=== PATIENT | male | born 1955 | race Caucasian/White ===

== ENCOUNTER 2020-10-12 | Outpatient (REF) | payer MEDICARE, MEDICAID, SELFPAY | END 2020-10-12 00:01 | disposition home or self-care (01) | LOC: HO.VC | PROVIDERS: Visit Provider Internal Medicine | DX: Z23 Encounter for immunization (principal) | CPT/HCPCS: 0011A ==

== ENCOUNTER 2020-11-09 | Outpatient (REF) | payer MEDICARE, SELFPAY | END 2020-11-09 00:01 | disposition home or self-care (01) | LOC: HO.VC | PROVIDERS: Visit Provider Internal Medicine | DX: Z23 Encounter for immunization (principal) | CPT/HCPCS: 0012A ==

== ENCOUNTER → 2020-11-28 09:51 | Outpatient (BNVA) | payer MEDICARE, SELFPAY | PROVIDERS: PCP Internal Medicine; Visit Provider Internal Medicine | DX: J44.9 Chronic obstructive pulmonary disease, unspecified (principal); Z79.51 Long term (current) use of inhaled steroids | CPT/HCPCS: 99212 ==

== ENCOUNTER → 2021-05-31 10:20 | Outpatient (BNVA) | payer MEDICARE, SELFPAY | PROVIDERS: PCP Internal Medicine; Visit Provider Internal Medicine | DX: J44.9 Chronic obstructive pulmonary disease, unspecified (principal) | CPT/HCPCS: 99212 ==

== ENCOUNTER → 2021-08-30 09:41 | Outpatient (BNVA) | payer MEDICARE, OTHER, SELFPAY | PROVIDERS: PCP Internal Medicine; Visit Provider Internal Medicine | DX: J44.9 Chronic obstructive pulmonary disease, unspecified (principal) | CPT/HCPCS: 99212 ==

== ENCOUNTER → 2022-02-27 09:45 | Outpatient (BNVA) | payer MEDICARE, OTHER, SELFPAY | PROVIDERS: PCP Internal Medicine; Visit Provider Internal Medicine | DX: J44.9 Chronic obstructive pulmonary disease, unspecified (principal); Z79.899 Other long term (current) drug therapy | CPT/HCPCS: 99212 ==

== ENCOUNTER → 2022-09-27 10:59 | Outpatient (BNVA) | payer MEDICARE, OTHER, SELFPAY | PROVIDERS: PCP Internal Medicine; Visit Provider Internal Medicine | DX: J44.9 Chronic obstructive pulmonary disease, unspecified (principal); Z94.0 Kidney transplant status; Z79.899 Other long term (current) drug therapy | CPT/HCPCS: 99212 ==

== ENCOUNTER 2023-04-02 09:54 | Outpatient (AMB) | payer MEDICARE, SELFPAY ==
--- NOTE | 2023-04-02 09:55 | A.OFFVIS_ITS ---
Intake Vital Signs 04/02/23 09:56 Height 5 ft 10 in Weight 189 lb 9.561 oz BMI 27.2 BP 114/62 Blood Pressure Location Rt brachial Position Sitting Pulse 83 Pulse Source Pulse Oximeter Pulse Oximetry (%) 97 Oxygen Delivery Method Room Air Intake Visit Reasons: copd Intake Note: Pt presents for a routine f/u. He reports everything is going well. Allergies coconut Allergy (Severe, Verified 04/02/23 10:13) SWELLING demeclocycline [Demeclocycline] Allergy (Mild, Verified 04/02/23 10:13) RASH Medication List - Last Reconciled 04/02/23 by Navin Patterson MD albuterol sulfate 90 mcg/actuation 2 puffs PO Q4H PRN atorvastatin 20 mg PO DAILY blood sugar diagnostic As directed doxazosin 4 mg PO DAILY Flovent HFA 110 mcg/actuation (fluticasone propionate) 2 puffs PO BID NS levothyroxine 200 mcg PO metformin 500 mg PO BID nebivolol (Bystolic) 5 mg PO DAILY nifedipine ER 60 mg PO BID pantoprazole 40 mg PO DAILY Serevent Diskus (salmeterol) 1 inh PO BID NS tacrolimus 0.5 mg PO BID tacrolimus 1 mg PO BID tiotropium bromide (Spiriva with HandiHaler) 1 cap inhalation DAILY Do you need a note to return to daycare/school/sports/work: No HPI copd HPI Details This 67 years old very pleasant gentleman, comes for his 6 months. Follow-up for COPD Has remained very stable without any acute exacerbation. He gets short of breath on moderate amount of exertion such as walking fast or climbing stairs, but remains fairly stable and comfortable at his normal pace. Continues to use his inhalers, and uses the rescue inhaler only. once in a His renal status is also staying very stable. [facility] Medical History COPD (chronic obstructive pulmonary disease) Surgical History Kidney replaced by transplant Social History Patient Tobacco Use Status: Never used Tobacco Review of Systems Const All systems reviewed & are unremarkable except as noted in HPI and below Eyes Reports no additional complaints ENT Reports no additional complaints Card Denies chest pain, Denies irregular heart rhythm and Denies leg edema Resp Reports as per HPI GI Reports no additional complaints Reports no additional complaints Musc Reports back pain (Mild) Skin/Breast Reports system reviewed and no additional complaints, except as documented Neuro Reports no additional complaints Psych Reports no additional complaints Physical Exam Vital Signs: Last Vital Signs Pulse 83 04/02/23 09:56 BP 114/62 04/02/23 09:56 Pulse Ox 97 04/02/23 09:56 Oxygen Delivery Method Room Air 04/02/23 09:56 BMI result Body Mass Index 27.2 Const General: comfortable, no acute distress, alert and awake Orientation/consciousness: patient oriented x3 HEENT Head: Yes normal to inspection General nose exam: No nasal polyps present and No nasal discharge present Face and sinus: Yes sinuses nontender Mouth: oropharynx normal Throat: Yes posterior oropharynx normal Eyes General: appearance normal, both eyes and all related structures Neck Neck: Yes normal visual inspection, Yes no lymphadenopathy, Yes trachea midline and Yes no JVD Thyroid: Thyroid normal Chest Chest palpation & inspection: normal inspection of the chest, normal palpation of entire chest wall and no tenderness Resp Other: Percussion note hyper-resonant, breath sounds are distant with prolonged expiratory phase. Lungs are very clear without any crepitations or wheezes. Cardio Palpation: normal PMI Rate: regular rate Rhythm: regular rhythm Heart sounds: no gallops and no murmurs GI Palpation (GI): Soft to palpation, nontender, No hepatosplenomegaly present and no masses Auscultation: normal bowel sounds Back/Spine/Pelvis Thoracic/Lumbar Spine: thoracic and lumbar spine normal to inspection and thoraco-lumbar ROM limited Skin General skin exam: no rashes or lesions noted Neuro General: patient oriented x3 and no focal motor deficits Cranial nerves: Yes CN's II-XII intact bilaterally Extrem General: Yes normal to inspection, Yes no clubbing, cyanosis or edema and Yes no calf tenderness Psych Appearance: grossly normal and well kempt Speech and movement: Normal speech and movement present Assessment & Plan Assessment & Plan (1) COPD (chronic obstructive pulmonary disease): Comment: HE DOES HAVE CHRONIC , and SEVERE OBSTRUCTIVE PULMONARY DISORDER, BUT IT REMAINS VERY STABLE. HE CLAIMS THAT HE IS DOING WELL AND THERE IS NO WORSENING OF HIS BREATHING STATUS. TX CONTINUE FLOVENT -110 2 PUFFS B.I.D. SEREVENT - 50 ONE INH BID SPIRIVA HANDIHALER 1 INHALATION DAILY ALB.HFA 2 puffs q 4-6 Hrs PRN Code(s): J44.9 - Chronic obstructive pulmonary disease, unspecified Coding Level of Care Code Est Pt Level 3 (71538) Diagnoses COPD (chronic obstructive pulmonary disease) J44.9
[2023-04-02 09:56] VITALS: BP 114/62; PULSE 83; O2SAT 97; BMI 27.2
== END 2023-04-02 10:13 | disposition home or self-care (01) ==
PROVIDERS: PCP Internal Medicine; Visit Provider Internal Medicine
DX: J44.9 Chronic obstructive pulmonary disease, unspecified (principal)
CPT/HCPCS: 99213

== ENCOUNTER → 2023-04-02 09:54 | Outpatient (BNVA) | payer MEDICARE, OTHER, SELFPAY | PROVIDERS: Visit Provider Internal Medicine | DX: J44.9 Chronic obstructive pulmonary disease, unspecified (principal); Z94.0 Kidney transplant status | CPT/HCPCS: 99212 ==

== ENCOUNTER 2024-03-24 10:48 | Outpatient (AMB) | payer MEDICARE, SELFPAY ==
[2024-03-24 10:51] VITALS: BP 126/6; PULSE 79; O2SAT 96
--- NOTE | 2024-03-24 10:51 | MHC.OFFVIS ---
Vital Signs 03/24/24 10:51 Weight 199 lb 8.293 oz BP 126/6 L Blood Pressure Location Rt brachial Position Sitting Pulse 79 Pulse Source Pulse Oximeter Pulse Oximetry (%) 96 Oxygen Delivery Method Room Air Intake Visit Reasons: COPD Allergies coconut Allergy (Severe, Verified 03/24/24 11:02) SWELLING demeclocycline [Demeclocycline] Allergy (Mild, Verified 03/24/24 11:02) RASH Medication List - Last Reconciled 03/24/24 by Navin Patterson MD albuterol sulfate 90 mcg/actuation 2 puffs PO Q4H PRN atorvastatin 20 mg PO DAILY beclomethasone dipropionate 40 mcg/actuation (Qvar RediHaler) 2 inhalations inhalation BID 30 days blood sugar diagnostic As directed doxazosin 4 mg PO DAILY Flovent HFA 110 mcg/actuation (fluticasone propionate) 2 puffs PO BID NS levothyroxine 200 mcg PO metformin 500 mg PO BID nebivolol (Bystolic) 5 mg PO DAILY nifedipine ER 60 mg PO BID pantoprazole 40 mg PO DAILY Serevent Diskus (salmeterol) 1 inh PO BID NS tacrolimus 0.5 mg PO BID tacrolimus 1 mg PO BID tiotropium bromide (Spiriva with HandiHaler) 1 cap inhalation DAILY Do you need a note to return to daycare/school/sports/work: No HPI HPI COPD: Details: This 68 years old very pleasant gentleman a case of longstanding chronic obstructive pulmonary disease, comes for follow-up after more than a year. He states that he has been stable and, no issues with his COPD. He has only mild intermittent cough, and gets short of breath if he walks fast or climbs stairs. He continues to use his inhalers. Has had no respiratory infection. He is post kidney transplant, now 6 years and has done very well. [facility] Medical History (Updated 03/24/24 @ 11:06 by Navin Patterson MD) COPD (chronic obstructive pulmonary disease) Surgical History Kidney replaced by transplant Social History Patient Tobacco Use Status: Never used Tobacco Review of Systems Const All systems reviewed & are unremarkable except as noted in HPI and below Eyes Reports no additional complaints ENT Reports no additional complaints Card Denies chest pain, Denies irregular heart rhythm and Denies leg edema Resp Reports as per HPI GI Reports no additional complaints Reports no additional complaints Musc Reports back pain (Mild) Skin/Breast Reports system reviewed and no additional complaints, except as documented Neuro Reports no additional complaints Psych Reports no additional complaints Physical Exam Vital Signs: Last Vital Signs Pulse 79 03/24/24 10:51 BP 126/6 L 03/24/24 10:51 Pulse Ox 96 03/24/24 10:51 Oxygen Delivery Method Room Air 03/24/24 10:51 Const General: comfortable, no acute distress, alert and awake Orientation/consciousness: patient oriented x3 HEENT Head: Yes normal to inspection General nose exam: No nasal polyps present and No nasal discharge present Face and sinus: Yes sinuses nontender Mouth: oropharynx normal Throat: Yes posterior oropharynx normal Eyes General: appearance normal, both eyes and all related structures Neck Neck: Yes normal visual inspection, Yes no lymphadenopathy, Yes trachea midline and Yes no JVD Thyroid: Thyroid normal Chest Chest palpation & inspection: normal inspection of the chest, normal palpation of entire chest wall and no tenderness Resp Other: Percussion note hyper-resonant, breath sounds are distant with prolonged expiratory phase. Lungs are very clear without any crepitations or wheezes. Cardio Palpation: normal PMI Rate: regular rate Rhythm: regular rhythm Heart sounds: no gallops and no murmurs GI Palpation (GI): Soft to palpation, nontender, No hepatosplenomegaly present and no masses Auscultation: normal bowel sounds Back/Spine/Pelvis Thoracic/Lumbar Spine: thoracic and lumbar spine normal to inspection and thoraco-lumbar ROM limited Skin General skin exam: no rashes or lesions noted Neuro General: patient oriented x3 and no focal motor deficits Cranial nerves: Yes CN's II-XII intact bilaterally Extrem General: Yes normal to inspection, Yes no clubbing, cyanosis or edema and Yes no calf tenderness Psych Appearance: grossly normal and well kempt Speech and movement: Normal speech and movement present Assessment & Plan Assessment & Plan (1) COPD (chronic obstructive pulmonary disease): Comment: HE DOES HAVE CHRONIC , and SEVERE OBSTRUCTIVE PULMONARY DISORDER, BUT IT REMAINS VERY STABLE. HE CLAIMS THAT HE IS DOING WELL AND THERE IS NO WORSENING OF HIS BREATHING STATUS. Code(s): J44.9 - Chronic obstructive pulmonary disease, unspecified Category: Medical Plan: Continue using the inhalers as at present. FLUTICASONE PROPIONATE, 110 2 PUFFS B.I.D. SEREVENT DISKUS 1 INHALATION B.I.D.. SPIRIVA HANDIHALER 1 CAPSULE DAILY ALBUTEROL HFA 2 PUFFS Q 6 HOURS ONLY P.R.N. FOR ACUTE SPELLS. .REFILLS ARE UP TO DATE LONG HE IS STABLE HE CAN COME AND SEE ME ONCE A YEAR Coding Level of Care Code Est Pt Level 3 (96917) Diagnoses COPD (chronic obstructive pulmonary disease) J44.9
== END 2024-03-24 11:08 | disposition home or self-care (01) ==
PROVIDERS: PCP Internal Medicine; Visit Provider Internal Medicine
DX: J44.9 Chronic obstructive pulmonary disease, unspecified (principal)
CPT/HCPCS: 99213

== ENCOUNTER → 2024-03-24 10:48 | Outpatient (BNVA) | payer MEDICARE, SELFPAY | PROVIDERS: PCP Internal Medicine; Visit Provider Internal Medicine | DX: J44.9 Chronic obstructive pulmonary disease, unspecified (principal); Z79.899 Other long term (current) drug therapy | CPT/HCPCS: 99212 ==

== ENCOUNTER 2024-04-14 09:50 | Outpatient (REF) | payer MEDICARE, SELFPAY ==
--- NOTE | ~2024-04-14 | US_ITS ---
EXAMINATION: US EXTRACRANIAL CAROTID DUPLEX, BILATERAL CLINICAL INFORMATION: Right carotid stenosis/occlusion COMPARISON: Ultrasound 05/23/2012 TECHNIQUE: Real-time ultrasound and Doppler techniques (integrating B-mode 2-D vascular images, Doppler spectral analysis and color-flow Doppler imaging) were utilized to interrogate the extracranial carotid arteries, the vertebral arteries and proximal subclavian arteries bilaterally. The degree of stenosis is determined by criteria similar to NASCET. FINDINGS: Right Side: 1. There is severe atherosclerotic plaque seen in the bifurcation/proximal ICA region. There is also an incompletely visualized dense atherosclerotic calcification at the lowest visible portion of the right common carotid. 2. The common carotid artery PSV proximally is 99.8 cm/s and distally 56.6 cm/s. 3. The proximal internal carotid artery velocities are 296 cm/s systolic and 31.8 cm/s diastolic. 4. The proximal external carotid artery PSV is 198 cm/s. 5. The vertebral artery shows antegrade flow. 6. The subclavian artery waveforms are normal. Left Side: 1. There is moderate atherosclerotic plaque seen in the bifurcation/proximal ICA region. 2. The common carotid artery PSV proximally is 65.7 cm/s and distally 63.9 cm/s. 3. The proximal internal carotid artery velocities are 64.5 cm/s systolic and 15.8 cm/s diastolic. 4. The proximal external carotid artery PSV is 116 cm/s. 5. The vertebral artery shows antegrade flow. 6. The subclavian artery waveforms are normal. US/US carotid duplex BI IMPRESSION: 1. RIGHT: Moderate, hemodynamically significant stenosis of the proximal right internal carotid artery corresponding to a 50-79% stenosis by velocity criteria. Additionally there is extensive calcific plaque at the lower visualized portion of the common carotid artery. Could consider CTA for further evaluation. 2. LEFT: Minimal, non-hemodynamically significant stenosis of the proximal left internal carotid artery corresponding to a 0-49% stenosis by velocity criteria.
== END 2024-04-14 09:51 | disposition home or self-care (01) ==
LOC: HO.HMGCX 09:50
PROVIDERS: PCP Internal Medicine; Visit Provider Internal Medicine Nephrology
DX: I65.21 Occlusion and stenosis of right carotid artery (principal)
CPT/HCPCS: 93880

== ENCOUNTER 2024-10-05 08:08 | Outpatient (REF) | payer MEDICARE, SELFPAY ==
[2024-10-05 10:14] LABS: Hemoglobin 13.2 g/dl (14.0-18.0); Mean Corpuscular HGB Conc 33.8 g/dl (31.0-36.0); Mean Corpuscular Hemoglobin 31.9 pg (27.0-33.0); Mean Corpuscular Volume 94.2 fL (80.0-98.0); Mean Platelet Volume 8.9 fL (9.4-12.4); Platelet Count 202 X10*3/uL (160-400); Red Blood Count 4.14 X10*6/uL (4.60-5.80); Red Cell Distribution Width 13.8 % (11.0-16.0); White Blood Count 4.5 X10*3/uL (4.8-10.8)
[2024-10-05 11:11] LABS: Anion Gap 13 (12-20); Blood Urea Nitrogen 8 mg/dL (9-16); Calcium 9.2 mg/dL (8.4-10.2); Carbon Dioxide 21 mmol/L (22-29); Chloride 103 mmol/L (96-108); Estimated Glomerular Filt Rate > 60; Potassium 3.9 mmol/L (3.3-5.1); Sodium 133 mmol/L (135-145)
--- OUTSIDE RECORDS SUMMARY | 2024-10-05 12:34 | XMS_ITS | Encounter Summary ---
Author Organization [facility] Address [address] [facility] [address] [place] [address] Phone Care Team Providers Care Tangled Yarn Spool Straightener Name Role Phone Murray Pichardo MD Primary Care Provider [phone] Reason for Referral * Imaging (Routine) - Closed Specialty Diagnoses / Procedures Referred By Contac t Referred To Contact Diagnoses Carotid artery stenosis <Right side> Procedures Ultrasound carotid doppler bilateral Greg Cesar MD Phone: tel: fax: Referral ID Status Reason Start Date Expiration Date Visits Re quested Visits Authorized [id number] Closed 03/20/2024 03/20/2025 1 1 Encounter Details Date Type Department Care Team (Latest Contact Info) Description 03/20/2024 Office Communication [facility] [address] [facility] [address] [place] [address] Greg Cesar MD [address] [facility] [address] [place] [phone] Carotid artery stenosis <Right side> (Primary Dx); Kidney transplant status Social History Tobacco Use Types Packs/Day Years Used Date Smoking Tobacco: Never Smokeless Tobacco: Never Alcohol Use Standard Drinks/Week Comments Not Currently 1 (1 standard drink = 0.6 oz pur e alcohol) Education Answer Date Recorded What is the highest level of school you have completed or the highest degree you have received? 12th grade 11/17/2020 Sex and Gender Information Value Date Recorded Sex Assigned at Not on file Legal Sex Male 5:12 PM EST Gender Identity Not on file Sexual Orientation Not on file Occupation Industry Job Start Date Job End Date retired Not on file Not on file Not on file documented as of this encounter Miscellaneous Notes * Telephone Encounter - Greg Cesar MD - 04/03/2024 10:04 AM EDT He is suppose to be on sodium bicarbonte 650 bid --I resent the Rx to [facility] specialty--thx * Telephone Encounter - Greg Cesar MD - 04/03/2024 6:45 AM EDT He needs labs done next week What med is he looking for ?? * Telephone Encounter - Greg Cesar MD - 03/20/2024 8:16 AM EDT Schedule carotid u/s in next sev weeks--ok to have done at [facility] documented in this encounter Plan of Treatment Upcoming Encounters Date Type Department Care Team (Late st Contact Info) Description 10/09/2024 10:00 AM EST Office Visit [facility] [address] [phone] Miles Morton MD [address] [phone] Scheduled Orders Name Type Priority Associated Diagnoses Orde r Schedule Ultrasound carotid doppler bilateral Imaging Routine Carotid artery stenosis <Right side> Expected: 04/03/2024, Expires: 03/20/2025 PTH, Intact Lab Routine Kidney transplant status Expected: 04/06/2024, Expires: 05/04/2025 Renal Function Panel Lab Routine Kidney transplant status Expected: 04/06/2024, Expires: 05/04/2025 Urinalysis with microscopic Lab Routine Kidney transplant status Expected: 04/06/2024, Expires: 05/04/2025 Urine Albumin / Creatinine Ratio Lab Routine Kidney transplant status Expected: 04/06/2024, Expires: 05/04/2025 Protein, Total, Random Urine w/Creatinine (Protein/Creat Ratio) Lab Routine Kidney transplant status Expected: 04/06/2024, Expires: 05/04/2025 Vitamin D 25 Hydroxy Lab Routine Kidney transplant status Expected: 04/06/2024, Expires: 05/04/2025 CBC Lab Routine Kidney transplant status Expected: 04/06/2024, Expires: 05/04/2025 Phosphorus Lab Routine Kidney transplant status Expected: 04/06/2024, Expires: 05/04/2025 Magnesium Lab Routine Kidney transplant status Expected: 04/06/2024, Expires: 05/04/2025 Albumin Lab Routine Kidney transplant status Expected: 04/06/2024, Expires: 05/04/2025 Calcium Lab Routine Kidney transplant status Expected: 04/06/2024, Expires: 05/04/2025 Tacrolimus level Lab Routine Kidney transplant status Expected: 04/06/2024, Expires: 05/04/2025 documented as of this encounter Visit Diagnoses Diagnosis Carotid artery stenosis <Right side>- Primary Kidney transplant status documented in this encounter Care Teams Tangled Yarn Spool Straightener Relationship Specialty Start Date End Date Murray Pichardo MD [address] [place] [id number] PCP - General 07/14/19 documented as of this encounter
--- OUTSIDE RECORDS SUMMARY | 2024-10-05 12:34 | XMS_ITS | Encounter Summary ---
Author Organization [facility] Address [address] [address] Phone Care Team Providers Care Dry House Operator Name Role Phone Murray Pichardo MD Primary Care Provider [phone] Reason for Visit * Reason Comments Med Refill Encounter Details Date Type Department Care Team (Late Contact Info) Description 09/21/2024 [facility]ill [facility] [address] [phone] Greg Cesar MD [address] [phone] Social History Tobacco Use Types Packs/Day Years [...] on file documented as of this encounter Plan of Treatment Upcoming Encounters Date Type Department Care Team (Late st Contact Info) Description 10/09/2024 10:00 AM EST Office Visit [facility] [address] [phone] Miles Morton MD [address] [phone] documented as of this encounter Visit Diagnoses Not on filedocumented in this encounter Care Teams Dry House Operator Relationship Specialty Start Date End Date Murray Pichardo MD [address] [place] [address] PCP - General 07/14/19 documented as of this encounter
--- OUTSIDE RECORDS SUMMARY | 2024-10-05 12:34 | XMS_ITS | Encounter Summary ---
Author Organization [facility] Address [address] [facility] [address] [place] [address] Care Team Providers Care Rigging Helper Name Role Phone Murray Pichardo MD Primary Care Provider Encounter Details Date Type Department Care Team (Latest Contact Info) Description 10/02/2024 Travel Social History Tobacco Use Types Packs/Day Years [...] Visit [facility] [address] [phone] Miles Morton MD [address] [phone] documented as of this encounter Visit Diagnoses Not on filedocumented in this encounter Care Teams Rigging Helper Relationship Specialty Start Date End Date Murray Pichardo MD [address] [place] [address] PCP - General 11/5/19 documented as of this encounter
--- OUTSIDE RECORDS SUMMARY | 2024-10-05 12:34 | XMS_ITS | Clinical Summary ---
Author Organization [facility] Address [address] [place] [address] Care Team Providers Care Band Booker Name Role Phone Pcp, No Primary Care Provider Unavailabl e Social History Tobacco Use Types Packs/Day Years Used Date Smoking Tobacco: Never Assessed Sex and Gender Information Value Date Recorded Sex Assigned at Not on file Gender Identity Not on file Sexual Orientation Not on file Plan of Treatment Health Maintenance Due Date Last Done Comments Hepatitis C Virus Screening 1955 DTaP/Tdap/Td Vaccines (1 - Tdap) 1973 Pneumococcal Vaccines 50+ (1 of 2 - PCV) 1973 Hepatitis B Vaccines (1 of 3 - Risk Dialysis 4-dose series) 1974 Colonoscopy 1999 Zoster (Shingles) Vaccine (1 of 2) 2004 Influenza Vaccine 04/09/2024 06/09/2020, , 09/25/2018, Additional history exists COVID-19 Vaccine (5 - 2023-2 5 season) 2024 12/13/2021, 03/23/2021, 11/09/2020, Additional history exists RSV Vaccine 60 years and old er and Patients (1 - 1-dose 75+ series) 2029 Hemoglobin A1C Discontinued 10/24/2018 Care Teams Band Booker Relationship Specialty Start Date End Date Pcp, No [address] [place] [address] PCP - General 06/09/19
--- OUTSIDE RECORDS SUMMARY | 2024-10-05 12:35 | XMS_ITS | Clinical Summary ---
Author Organization [facility] Address [address] [facility] [address] [place] [address] Phone Care Team Providers Care Messenger Office Name Role Phone Murray Pichardo MD Primary Care Provider [phone] Allergies Active Allergy Reactions Criticality Noted Date Comments Coconut (Cocos Nucifera) Swelling 11/17/2020 Coconut Fatty Acid Other (see comments) 018 Meclocycline Itching 11/17/2020 Other 12/27/2016 Milford nuts Milford nuts Peanut (Diagnostic) 12/27/2016 Mil[place] nuts Medications ProAir HFA 108 (90 Base) MCG/ACT inhaler TAKE 2 PUFFS BY MOUTH EVERY 4 HOURS NEEDED 11/08/19 21 Active atorvastatin (LIPITOR) 20 MG tablet Take 20 mg by mouth 1 (one) time each day 10/10/19 21 Active fluticasone HFA (Flovent HFA) 110 MCG/ACT inhaler 2 puffs twice a day 10/22/19 18 Active metFORMIN (GLUCOPHAGE) 500 MG tablet Take 500 mg by mouth Once 09/23/19 21 Active Serevent Diskus 50 MCG/DOSE diskus inhaler INHALE 1 PUFF TWICE DAILY 10/10/19 21 Active Spiriva HandiHaler 18 MCG per inhalation capsule INHALE 1 CAPSULE INTO LUNGS BY MOUTH DAILY 10/16/19 21 Active OneTouch Verio test strip USE DIRECTED TO TEST BLOOD SUGAR TWICE DAILY 02/07/20 21 Active albuterol HFA (PROVENTIL HFA;VENTOLIN HFA) 108 (90 Base) MCG/ACT inhaler Inhale 2 puffs 05/26/20 21 Active levothyroxine (SYNTHROID, LEVOTHROID) 112 MCG tablet Take 112 mcg by mouth 07/07/20 22 Active pantoprazole (PROTONIX) 40 MG EC tablet Take 1 tablet by mouth 1 (one) time each day 12/19/19 22 Active NIFEdipine CC (ADALAT CC) 60 MG 24 hr tablet TAKE ONE TABLET BY MOUTH TWO TIMES A DAY 120 tablet 11 09/20/19 24 Active tacrolimus (PROGRAF) 1 MG capsuleIndicati ons:Kidney replaced by transplant Take 2 capsules (2 mg total) by mouth in the morning and 2 capsules (2 mg total) in the evening. 120 capsule 11 12/16/19 24 025 Active nebivolol (Bystolic) 5 MG tabletIndicatio ns:Hypertensive disorder Take 1 tablet (5 mg total) by mouth 1 (one) time each day 90 tablet 3 01/22/20 24 025 Active Fexofenadine HCl (MUCINEX ALLERGY PO) Take by mouth daily Active doxazosin (CARDURA) 4 MG tablet TAKE 1 TABLET (4 MG TOTAL) BY MOUTH AT BED TIME 90 tablet 3 06/04/20 24 Active magnesium oxide 400 (240 Mg) MG tabletIndicatio ns:Other chcf current drug therapy Take 1 tablet by mouth in the morning and 1 tablet in the evening. 180 tablet 3 06/10/20 24 Active cyclobenzaprine (FLEXERIL) 5 MG tablet Take 1 tablet (5 mg total) by mouth 3 (three) times a day if needed for muscle spasms for up to 21 days 30 tablet 06/19/20 24 Active sodium bicarbonate 650 MG tablet TAKE ONE TABLET BY MOUTH EVERY MORNING AND EVERY EVENING AND BEFORE BEDTIME 270 tablet 09/21/19 25 Active sodium bicarbonate 650 MG tablet Take 1 tablet (650 mg total) by mouth in the morning and 1 tablet (650 mg total) in the evening and 1 tablet (650 mg total) before bedtime. 270 tablet 06/19/20 24 025 Discontinued Active Problems Problem Noted Date Diagnosed Date Cough 03/26/2023 Herpes zoster 10/10/2022 Chronic kidney disease, stage 2 (mild) 1 Kidney replaced by transplant 11/17/2020 Left bundle-branch block 08/19/2017 Asthma 12/27/2016 Carpal tunnel syndrome of right wrist 12/27/2016 Diabetes mellitus 12/27/2016 Hyperlipidemia 12/27/2016 Acquired hypothyroidism 01/05/2011 Cataract 01/05/2011 Anemia of chronic renal failure 01/05/2011 Chronic glomerulonephritis 01/05/2011 End stage renal disease 01/05/2011 Emphysema 01/05/2011 Hyperparathyroidism due to renal insufficiency 0 01/05/2011 Hypertensive renal disease with renal failure Hyposmolality and/or hyponatremia 01/05/2011 Iron deficiency anemia 01/05/2011 Resolved Problems Problem Noted Date Diagnosed Date Resolved Date Benign essential hypertension 11/08/2021 01/30/2022 Poisoning by antineoplastic and immunosuppressive drugs 11/17/2020 01/30/2022 End stage renal failure with renal transplant 07/14/20 19 01/30/2022 Recipient of transplantation 06/16/2018 01/30/2022 Overview (11/08/2021): campath induction Acute duodenal ulcer with hemorrhage 10/22/2017 01/30/2022 Pure hypercholesterolemia 08/19/2017 Hypertensive disorder 12/27/20162021 Encounters Date Type Department Care Team Description 10/05/2024 Orders Only [facility] [address] [address] Greg Cesar MD 10/02/2024 Travel 09/21/2024 Refill [facility] [address] [address] Greg Cesar MD 08/19/2024 Orders Only [facility] [address] [address] Greg Cesar MD Kidney replaced by transplant from Last 3 Months Immunizations Name Administration Dates Next Due Hep B, Unspecified 02/15/2012 Influenza Split High Dose Pr eservative Free IM 09/09/2017 Influenza Vaccine, Quadrival ent, Adjuvanted 06/23/2021 Influenza, Quadrivalent, Pre servative Free 06/09/2020 Influenza, Unspecified 05/22/2022,2018,09/09/2018,11/19 Moderna SARS-COV-2 11/09/2020,10/12/2020 Pfizer SARS-COV-2 03/23/2021 Pneumococcal Conjugate 13-Valent 11/19/2017,09/0 09/2016 Pneumococcal Polysaccharide 08/22/2019, 2,08/14/2006 TD Preservative Free 11/08/2007 Tdap 11/19/2017 Zoster 08/12/2020,06/09/2020,06/12/2014 Family History Medical History Relation Comments Diabetes Father Heart disease Father Hypertension Father Cancer Mother Breast Cancer Diabetes Mother Diabetes Sibling Relation Status Comments Father Mother Sibling Social History Tobacco Use Types Packs/Day Years Used Date Smoking Tobacco: Never Smokeless Tobacco: Never Tobacco Cessation:Counseling Given: No Alcohol Use Standard Drinks/Week Comments Not Currently [...] file Not on file Not on file Last Filed Vital Signs Vital Sign Reading Time Taken Comments Blood Pressure 114/74 06/19/2024 10:08 AM EDT Pulse 76 06/19/2024 10:08 AM EDT Temperature 36.7 ??C (98 ??F) 04/14/2019 12:00 PM EDT Respiratory Rate 14 04/14/2019 12:00 PM EDT Oxygen Saturation 97% 06/19/2024 10:08 AM EDT Inhaled Oxygen Concentration - - Weight 89.4 kg (197 lb) 06/19/2024 10:08 AM EDT Height 180.3 cm (5' 11 ) 03/26/2023 8:50 AM EDT Body Mass Index 27.48 03/26/2023 8:50 AM EDT Plan of Treatment Upcoming Encounters Date Type Department Care Team (Late st Contact Info) Description 10/09/2024 10:00 AM EST Office Visit [facility] [address] [facility] 204 [place] [address] Miles Morton MD [address] [facility] [address] [place] [address] Health Maintenance Due Date Last Done Comments Diabetes: Ophthalmology Exam 10/07/2020 Diabetes: Pedal Pulse Checked 10/07/2020 Diabetes: Sensory Foot Exam 10/07/2020 Diabetes: Visual Foot Exam 10/07/2020 Colonoscopy (Post-Transplant Patient) 11/17/2020 Diabetes: Hemoglobin A1C 01/06/2023 023, 04/04/2022, 08/31/2021, Additional history exists Hepatitis B Vaccine Aged Out 02/15/2012 No longe r eligible based on patient's age to complete this topic Pneumococcal Vaccine: 65+ Years Completed 08/22/2019, 11/19/2017, 05/10/2017, Additional history exists Influenza Vaccine Completed 05/19/2024, , 06/23/2021, Additional history exists Procedures Procedure Name Priority Date/Time Associated Diagnosis Comments CBC Routine 10/05/2024 9:59 AM EST Kidney replaced by transplant CALCIUM Routine 10/05/2024 9:52 AM EST CREATININE, BLOOD Routine 10/05/2024 9:5 2 AM EST BUN Routine 10/05/2024 9:52 AM EST ELECTROLYTE PANEL Routine 10/05/2024 9:5 2 AM EST HEMOGLOBIN A1C Routine 10/08/2022 8:16 AM EST Kidney replaced by transplant from Last 3 Months or Most Recently Relevant to Health Maintenance Results * (ABNORMAL) CBC (10/05/2024 9:59 AM EST) WBC 4.5(L) 4.8 - 10.8 X10*3/uL See order comments RBC 4.14(L) 4.60 - 5.80 X10*6/uL See order comments Hgb 13.2(L) 14.0 - 18.0 g/dl See order comments Hematocrit 39.0(L) 42.0 - 52.0 % See order comments MCV 94.2 80.0 - 98.0 fL See order comments MCH 31.9 27.0 - 33.0 pg See order comments MCHC 33.8 31.0 - 36.0 g/dl See order comments RDW 13.8 11.0 - 16.0 % See order comments Platelets 202 160 - 400 X10*3/uL See order comments MPV 8.9(L) 9.4 - 12.4 fL See order comments nRBC Count 0.0 0.0 - 0.2 /100WBC See order comments NRBC Absolute 0.000 0.0 - 0.012 X10*3/uL See order comments Blood (Blood, Venous) 10/05/2024 9:59 AM EST 10/05/2024 9:59 AM EST Greg Cesar MD LAB BLOOD ORDERABLES Final Re sult Performing Organization Address [facility] de Phone Number [place] See order comments [place] [address] * Creatinine (10/05/2024 9:52 AM EST) Creatinine Serum 0.83 0.5 - 1.4 mg/dL See order comments eGFR >60 See order comments Comment: Chronic Kidney Disease: ??Estimated GFR < 60 mL/min/1.73m2 Severe Kidney Disease: ??Estimated GFR < 15 mL/min/1.73m2 10/05/2024 9:52 AM EST 10/05/2024 9:52 AM EST Greg Cesar MD LAB BLOOD ORDERABLES Final Re sult Performing Organization Address [facility] Co de Phone Number [place] See order comments [place] [address] * (ABNORMAL) BUN (10/05/2024 9:52 AM EST) BUN 8(L) 9 - 16 mg/dL See order comments 10/05/2024 9:52 AM EST 10/05/2024 9:52 AM EST Greg Cesar MD LAB BLOOD ORDERABLES Final Re sult Performing Organization Address [facility] Co de Phone Number [place] See order comments [place] [address] * Calcium (10/05/2024 9:52 AM EST) Calcium 9.2 8.4 - 10.2 mg/dL See order comments 10/05/2024 9:52 AM EST 10/05/2024 9:52 AM EST Greg Cesar MD LAB BLOOD ORDERABLES Final Re sult Performing Organization Address [facility] de Phone Number [place] See order comments [place] [address] * (ABNORMAL) Electrolyte panel (10/05/2024 9:52 AM EST) Sodium 133(L) 135 - 145 mmol/L See order comments Potassium 3.9 3.3 - 5.1 mmol/L See order comments Chloride 103 96 - 108 mmol/L See order comments Bicarbonate (CO2) 21(L) 22 - 29 mmol/L See order comments Anion Gap 13 12 - 20 See order comments 10/05/2024 9:52 AM EST 10/05/2024 9:52 AM EST us Greg Cesar MD LAB BLOOD ORDERABLES Final Re sult Performing Organization Address [facility] de Phone Number [place] See order comments [place] [address] * Hemoglobin A1c (10/08/2022 8:16 AM EST) Hemoglobin A1C 4.8 (4.0-5.6) % [facility] Comment: MONITORING: In known diabetic patients, hemoglobin A1c targets should be discussed with health care provider. DIAGNOSTIC USE: ??The [place] Diabetes Association (ADA) and the World Health Organization (WHO) recommend the use of HbA1c to diagnose diabetes using a threshold of 6.5%. Patients who have an HbA1c between 5.7% and 6.4% are considered at increased risk for developing diabetes in the future. CAUTION: Falsely low HbA1c results may be observed in patients with hemolytic anemia, homozygous forms of abnormal hemoglobin (e.g. SS, CC, SC), , recent blood loss or hemoglobin F greater than 7%. Fructosamine may be used as an alternate test in these cases. REFERENCE: ADA: Standards of Medical Care in Diabetes 2020, The Journal of Clinical and Applied Research and Education Volume 43, Supplement 1 Testing performed or reported by [facility], a Service of [facility], [address] [place] [address] Valeria Faulkner MD, Sharepoint Application Architect [facility]# [id number] Blood (Blood, Venous) 10/08/2022 8:16 AM EST 10/08/2022 8:30 AM EST us aMry Lou Marks MD LAB BLOOD ORDERABLES Final Resu lt [facility] from Last 3 Months or Most Recently Relevant to Health Maintenance Insurance MEDICARE MEDICARE Care Teams Messenger Office Relationship Specialty Start Date End Date Murray Pichardo MD [address] [place] [address] PCP - General 07/14/19
--- OUTSIDE RECORDS SUMMARY | 2024-10-05 12:35 | XMS_ITS ---
Author Name [facility] Organization Unknown Problems Problem Status Onset Date Problem Type Date of Resoluti on Source Complication of transplanted kidney, unspecified complication [facility]
[2024-10-06 08:03] LABS: Tacrolimus Prograf 6.9 mcg/L
[2024-10-07 13:23] LABS: CMV DNA PCR Qn Source BLOOD; CMV DNA Qn PCR NOT DETECTED Log IU/mL (NOT DETECTED); CMV DNA Qn Real Time PCR NOT DETECTED (NOT DETECTED)
[2024-10-09 00:58] LABS: BK Virus DNA QL Plasma Not Detected (Not Detected); BK Virus DNA QL Source Plasma
== END 2024-10-05 08:09 | disposition home or self-care (01) ==
LOC: HO.HMGCLDS 08:08
PROVIDERS: PCP Internal Medicine; Visit Provider Internal Medicine Nephrology
DX: Z94.0 Kidney transplant status (principal)
CPT/HCPCS: 36415; 80051; 80197; 82310; 82565; 84520; 85027; 87497; 87798

== ENCOUNTER 2025-01-11 08:42 | Outpatient (REF) | payer MEDICARE, SELFPAY ==
--- OUTSIDE RECORDS SUMMARY | 2025-01-11 09:08 | XMS_ITS | Encounter Summary ---
Author Organization [facility] Address 100 [facility] 200 [place] [address] Phone Care Team Providers Care Pretzel Twisting Machine Operator Name Role Phone Murray Pichardo MD Primary Care Provider [phone] Reason for Referral * Imaging (Routine) - Closed Specialty Diagnoses / Procedures Referred By Contac t Referred To Contact Diagnoses Carotid artery stenosis <Right side> Procedures Ultrasound carotid doppler bilateral Greg Cesar MD Phone: tel: fax: Referral ID Status Reason Start Date Expiration Date Visits Re quested Visits Authorized [id number] Closed 03/20/2024 03/20/2025 1 1 Encounter Details Date Type Department Care Team (Latest Contact Info) Description 03/20/2024 Office Communication [facility] [address] [facility] 200 [place] [address] Greg Cesar MD [address] [facility] 204 [place] [phone] Carotid artery stenosis <Right side> (Primary Dx); [...] for ?? * Telephone Encounter - Greg Cesra MD - 03/20/2024 8:16 AM EDT Schedule carotid u/s in next sev weeks--ok to have done at [facility] documented in this encounter Plan of Treatment Upcoming Encounters Date Type Department Care Team (Late st Contact Info) Description 01/15/2025 9:30 AM EDT Office Visit [facility] [address] [phone] Miles Morton MD [address] [phone] 01/20/2025 Orders Only [facility] [address] [phone] Miles Morton MD [address] [phone] Kidney replaced by transplant Scheduled Orders Name Type Priority Associated Diagnoses [...] stenosis <Right side>- Primary Kidney transplant status Kidney replaced by transplant- Primary Kidney replaced by transplant documented in this encounter Care Teams Pretzel Twisting Machine Operator Relationship Specialty Start Date End Date Murray Pichardo MD [address] [place] [address] PCP - General 07/14/19 documented as of this encounter
--- OUTSIDE RECORDS SUMMARY | 2025-01-11 09:08 | XMS_ITS | Encounter Summary ---
Author Organization [facility] Address [address] [facility] [address] [place] [address] Phone Care Team Providers Care Sole Tacker Name Role Phone Murray Pichardo MD Primary Care Provider [phone] Encounter Details Date Type Department Care Team (Late st Contact Info) Description 01/07/2025 Orders Only [facility] [address] [facility] [address] [place] [address] OsvaldoJuliánRenuka 100 [facility] 200 [place] [phone] Kidney replaced by transplant (Primary Dx) Social History Tobacco Use Types Packs/Day Years [...] Office Visit [facility] [address] [facility] [address] [place] [address] Miles Morton MD [address] [phone] 01/20/2025 Orders Only [facility] [address] [facility] [address] [place] [address] Miles Morton MD [address] [facility] [address] [place] [address] Kidney replaced by transplant Scheduled Orders Name Type Priority Associated Diagnoses Orde r Schedule Tacrolimus level Lab Routine Kidney replaced by transplant Expected: 01/07/2025, Expires: 02/07/2026 documented as of this encounter Visit Diagnoses Diagnosis Kidney replaced by transplant- Primary Kidney replaced by transplant- Primary Kidney replaced by transplant documented in this encounter Care Teams Sole Tacker Relationship Specialty Start Date End Date Murray Pichardo MD [address] [place] [address] PCP - General 07/14/19 documented as of this encounter
--- OUTSIDE RECORDS SUMMARY | 2025-01-11 09:08 | XMS_ITS | Clinical Summary ---
Author Organization [facility] Address [address] [facility] [address] [place] [address] Phone Care Team Providers Care Specialty Sales Representative Name Role Phone Murray Pichardo MD Primary Care Provider [phone] Allergies Active Allergy Reactions Criticality Noted Date Comments Coconut (Cocos Nucifera) Swelling 11/17/2020 Coconut Fatty Acid Other (see comments) 018 Meclocycline Itching 11/17/2020 Other 12/27/2016 Cedar nuts Cedar nuts Peanut (Diagnostic) 12/27/2016 Cedar nuts Medications ProAir HFA 108 (90 Base) MCG/ACT inhaler TAKE 2 PUFFS BY MOUTH EVERY 4 HOURS NEEDED 1 Active atorvastatin (LIPITOR) 20 MG tablet Take 20 mg by mouth 1 (one) time each day 1 Active fluticasone HFA (Flovent HFA) 110 MCG/ACT inhaler 2 puffs twice a day 8 Active Serevent Diskus 50 MCG/DOSE diskus inhaler INHALE 1 PUFF TWICE DAILY 1 Active Spiriva HandiHaler 18 MCG per inhalation capsule INHALE 1 CAPSULE INTO LUNGS BY MOUTH DAILY 1 Active OneTouch Verio test strip USE DIRECTED TO TEST BLOOD SUGAR TWICE DAILY 1 Active albuterol HFA (PROVENTIL HFA;VENTOLIN HFA) 108 (90 Base) MCG/ACT inhaler Inhale 2 puffs 1 Active levothyroxine (SYNTHROID, LEVOTHROID) 112 MCG tablet Take 112 mcg by mouth 2 Active pantoprazole (PROTONIX) 40 MG EC tablet Take 1 tablet by mouth 1 (one) time each day 2 Active Fexofenadine HCl (MUCINEX ALLERGY PO) Take by mouth daily Active doxazosin (CARDURA) 4 MG tablet TAKE 1 TABLET (4 MG TOTAL) BY MOUTH AT BED TIME 90 tablet 3 4 Active magnesium oxide 400 (240 Mg) MG tabletIndication s:Other watermaster current drug therapy Take 1 tablet by mouth in the morning and 1 tablet in the evening. 180 tablet 3 4 Active cyclobenzaprine (FLEXERIL) 5 MG tablet Take 1 tablet (5 mg total) by mouth 3 (three) times a day if needed for muscle spasms for up to 21 days 30 tablet 2 5 Active tacrolimus (PROGRAF) 1 MG capsuleIndicatio ns:Kidney replaced by transplant TAKE TWO CAPSULES BY MOUTH EVERY MORNING AND EVERY EVENING 360 capsule 11 5 Active NIFEdipine CC (ADALAT CC) 60 MG 24 hr tablet TAKE ONE TABLET BY MOUTH TWO TIMES A DAY 180 tablet 11 5 Active nebivolol (BYSTOLIC) 5 MG tabletIndication s:Hypertensive disorder TAKE ONE TABLET BY MOUTH ONCE DAILY 90 tablet 3 5 Active sodium bicarbonate 650 MG tablet TAKE ONE TABLET BY MOUTH EVERY MORNING AND EVERY EVENING AND BEFORE BEDTIME 270 tablet 5 Active Active Problems Problem Noted Date Diagnosed Date [...] Encounters Date Type Department Care Team Description 01/07/2025 Orders Only [facility] [address] [facility] 204 [place] [address] Renuka Riley Kidney replaced by transplant (Primary Dx) 11/18/2024 Refill [facility] [address] [place] [address] Greg Cesar MD Kidney replaced by transplant; Hypertensive disorder 10/23/2024 10:00 AM EST Office Visit [facility] [address] [facility] 204 [place] [address] Miles Morton MD Kidney replaced by transplant (Primary Dx) from Last 3 Months Immunizations Immunization Administration Dates Next Due Hep B, Unspecified 02/15/2012 Influenza Split High Dose Pr eservative Free IM 09/09/2017 Influenza Vaccine, Quadrival ent, Adjuvanted 06/23/2021 Influenza, Quadrivalent, Pre servative Free 06/09/2020 Influenza, Unspecified 05/22/2022,2018,09/09/2018,11/19 Moderna SARS-COV-2 11/09/2020,10/12/2020 Pfizer SARS-COV-2 03/23/2021 Pneumococcal Conjugate 13-Valent 11/19/2017,090 09/2016 Pneumococcal Polysaccharide 08/22/2019, 2,08/14/2006 TD Preservative [...] Sign Reading Time Taken Comments Blood Pressure 110/70 10/23/2024 9:45 AM EST Pulse 78 10/23/2024 9:45 AM EST Temperature 36.7 ??C (98 ??F) 04/14/2019 12:00 PM EDT Respiratory Rate 14 04/14/2019 12:00 PM EDT Oxygen Saturation 98% 10/23/2024 9:45 AM EST Inhaled Oxygen Concentration - - Weight 87.5 kg (193 lb) 10/23/2024 9:45 AM EST Height 180.3 cm (5' 11 ) 03/26/2023 8:50 AM EDT Body Mass Index 26.92 03/26/2023 8:50 AM EDT Plan of Treatment Upcoming Encounters Date Type Department Care Team (Late st Contact Info) Description 01/15/2025 9:30 AM EDT Office Visit [facility] [address] [phone] Miles Morton MD [address] [phone] 01/20/2025 Orders Only [facility] [address] [phone] Miles Morton MD [address] [phone] Kidney replaced by transplant Health Maintenance Due Date Last Done Comments Diabetes: Ophthalmology Exam 10/07/2020 Diabetes: Pedal Pulse Checked 10/07/2020 Diabetes: Sensory Foot Exam 10/07/2020 Diabetes: Visual Foot Exam 10/07/2020 Colonoscopy (Post-Transplant Patient) 11/17/2020 Diabetes: Hemoglobin A1C 01/06/2023 023, 04/04/2022, 08/31/2021, Additional history exists Hepatitis B Vaccine Aged Out 02/15/2012 No longe r eligible based on patient's age to complete this topic Pneumococcal Vaccine: 50+ Years Completed 08/22/2019, 11/19/2017, 05/10/2017, Additional history exists Pneumococcal Vaccine: Peds (0 to 5 Years) and At-Risk Patients (6 to 49 Years) Discontinued 08/22/2019, 11/19/2017, 05/10/2017, Additional history exists Influenza Vaccine Completed 05/26/2024, , 06/23/2021, Additional history exists Procedures Procedure Name Priority Date/Time Associated Diagnosis Comments HEMOGLOBIN A1C Routine 10/08/2022 8:16 AM EST Kidney replaced by transplant from Last 3 Months or Most Recently Relevant to Health Maintenance Results * Hemoglobin A1c (10/08/2022 8:16 AM EST) Hemoglobin A1C 4.8 (4.0-5.6) % [facility] Comment: MONITORING: In known diabetic patients, hemoglobin A1c targets should be discussed with health care provider. DIAGNOSTIC USE: ??The [place] Diabetes Association (ADA) and the World Health [...] Supplement 1 Testing performed or reported by [facility], a Service of [facility], [address] [place] [address] Valeria Faulkner MD, Data Analytics Architect [facility]# [id number] Blood (Blood, Venous) 10/08/2022 8:16 AM EST 10/08/2022 8:30 AM EST us Mary Lou Marks MD LAB BLOOD ORDERABLES Final Resu lt [facility] from Last 3 Months or Most Recently Relevant to Health Maintenance Insurance Medicare Medicare Care Teams Specialty Sales Representative Relationship Specialty Start Date End Date Murray Pichardo MD [address] [place] [address] PCP - General 07/14/19
--- OUTSIDE RECORDS SUMMARY | 2025-01-11 09:08 | XMS_ITS | Clinical Summary ---
Author Organization [facility] Address [address] [place] [address] Care Team Providers Care Dairy Equipment Mechanic Name Role Phone Pcp, No Primary Care Provider Unavailabl e Social History Tobacco Use Types Packs/Day Years Used Date Smoking Tobacco: Never Assessed Sex and Gender Information Value Date Recorded Sex Assigned at Not on file Legal Sex Male 6:13 PM EST Gender Identity Not on file Sexual Orientation Not on file Plan of Treatment Health Maintenance Due Date Last Done Comments Hepatitis C Virus Screening 1954 DTaP/Tdap/Td Vaccines (1 - Tdap) 1973 Pneumococcal Vaccines 50+ (1 of 2 - PCV) 1973 Hepatitis B Vaccines (1 of 3 - Risk Dialysis 4-dose series) 1974 Colonoscopy 1999 Zoster (Shingles) Vaccine (1 of 2) 2004 COVID-19 Vaccine (2023-2 5 season) 2024 12/13/2021, 03/23/2021, 11/09/2020, Additional history exists Influenza Vaccine 04/09/2025 06/09/2020, , 09/25/2018, Additional history exists RSV Vaccine 60 years and old er and Patients (1 - 1-dose 75+ series) 2029 Hemoglobin A1C Discontinued 10/24/2018 Insurance Ashley SMILEY NATHANIELMaxwell [place]ATE[place] [id number] MEDICARE PART A & B MEDICAID OUT OF [place] [facility] [place] Subscriber Plan / Payer (Ef fective 2018-Present) Name:Aldo Olivarez Relation to Subscriber:Self Name:Aldo Olivarez Payer ID:Not on file Group ID:Not on file Type:Not on file Address: [facility] [id number] MEDICARE Care Teams Dairy Equipment Mechanic Relationship Specialty Start Date End Date Pcp, No [address] [place] [address] PCP - General 06/09/19
[2025-01-11 10:16] LABS: MANUAL DIFF FLAG NO
[2025-01-11 10:27] LABS: Basophils Percent Auto 0.7 % (0-2); Eosinophils Absolute Auto 0.2 X10*3/uL (0.0-0.4); Eosinophils Percent Auto 4.5 % (0-4); Hematocrit 38.9 % (42.0-52.0); Hemoglobin 13.5 g/dl (14.0-18.0); Imm Gran Abs Auto 0.01 X10*3/uL (0.00-0.03); Imm Gran Pct Auto 0.2 % (0.0-0.4); Lymphocytes Absolute Auto 1.4 X10*3/uL (1.2-4.9); Lymphocytes Percent Auto 31.8 % (20-40); Mean Corpuscular HGB Conc 34.7 g/dl (31.0-36.0); Mean Corpuscular Hemoglobin 32.4 pg (27.0-33.0); Mean Corpuscular Volume 93.3 fL (80.0-98.0); Monocytes Absolute Auto 0.5 X10*3/uL (0.1-1.2); Monocytes Percent Auto 10.5 % (2-11); Neutrophils Absolute Auto 2.4 x10*3/uL (2.0-8.3); Neutrophils Percent Auto 52.3 % (45-73); Platelet Count 240 X10*3/uL (160-400); Red Blood Count 4.17 X10*6/uL (4.60-5.80); Red Cell Distribution Width 14.1 % (11.0-16.0); White Blood Count 4.5 X10*3/uL (4.8-10.8)
[2025-01-11 10:28] LABS: Appearance Urine Clear; Color Urine Yellow; Glucose Urine UA Negative (Negative); Leukocyte Esterase Urine Negative (Negative); Nitrite Urine Negative (Negative); PH 7.5 (5.0-9.0); Specific Gravity - Urine <= 1.005 (1.005-1.025); Urine Blood Negative (Negative); Urine Ketones Negative (Negative); Urine Protein Negative (Neg-Trace)
[2025-01-11 10:34] LABS: Estimated Average Glucose 111 mg/dL; Hemoglobin A1C 129.5039 umol/L; Hemoglobin A1c % 5.5 % (<6.0); Total Hemoglobin (HGBA1C) 3520.4564 umol/L
[2025-01-11 10:57] LABS: Anion Gap 14 (12-20); Blood Urea Nitrogen 9 mg/dL (9-16); Calcium 9.3 mg/dL (8.4-10.2); Carbon Dioxide 25 mmol/L (22-29); Chloride 99 mmol/L (96-108); Estimated Glomerular Filt Rate > 60; Ferritin 450 ng/mL (20-250); Iron 60 mcg/dL (45-160); Percent Iron Saturation 32 % (15-50); Phosphorus 3.2 mg/dL (2.7-4.5); Potassium 4.1 mmol/L (3.3-5.1); Sodium 134 mmol/L (135-145); Total Iron Binding Capacity 186 mcg/dL (228-428); Total Protein 6.6 g/dL (6.5-8.0); Unsaturated Iron Binding 126 ug/dL; Uric Acid 6.6 mg/dL (3.4-7.0); Vitamin D 25-OH Total 28.1 ng/mL (>30)
[2025-01-11 11:09] LABS: Parathyroid Hormone Intact 136.1 pg/mL (8.7-77.1)
[2025-01-11 11:17] LABS: Microalbum/Creatinine Ratio Ur 61.1 ug/mg cr (<30); Total Protein Urine Random < 7 mg/dL (<12)
[2025-01-11 14:49] LABS: Magnesium 1.3 mg/dL (1.6-2.6)
== END 2025-01-11 08:43 | disposition home or self-care (01) ==
LOC: HO.HMGCLDS 08:42
PROVIDERS: PCP Internal Medicine; Visit Provider Internal Medicine
DX: Z94.0 Kidney transplant status (principal); Z13.1 Encounter for screening for diabetes mellitus
CPT/HCPCS: 36415; 80051; 81003; 82043; 82306; 82310; 82565; 82570; 82728; 83036; 83540; 83735; 83970; 84100; 84155; 84156; 84520; 84550; 85025

== ENCOUNTER 2025-03-19 08:13 | Outpatient (REF) | payer MEDICARE, SELFPAY ==
--- OUTSIDE RECORDS SUMMARY | 2025-03-19 08:16 | XMS_ITS | Encounter Summary ---
Author Organization [facility] Address [address] [facility] [address] [place] [address] Phone Care Team Providers Care Data Warehouse Analyst Name Role Phone Murray Pichardo MD Primary Care Provider [phone] Reason for Referral * Imaging (Routine) - Closed Specialty Diagnoses / Procedures Referred By Contac t Referred To Contact Diagnoses Carotid artery stenosis <Right side> Procedures Ultrasound carotid doppler bilateral Greg Cesar MD Phone: tel: fax: Referral ID Status Reason Start Date Expiration Date Visits Re quested Visits Authorized [id number] Closed 03/20/2024 03/20/2025 1 1 Encounter Details Date Type Department Care Team (Latest Contact Info) Description 03/20/2024 Office Communication [facility] [address] [facility] [address] [place] [address] Greg Cesar MD [address] [facility] [address] [place] [phone] Carotid artery stenosis <Right side> (Primary Dx); [...] next sev weeks--ok to have done at [facility] documented in this encounter Plan of Treatment Upcoming Encounters Date Type Department Care Team (Late st Contact Info) Description 04/09/2025 10:00 AM EDT Office Visit [facility] [address] [phone] Greg Cesar MD [facility] [address] [address] 04/17/2025 Orders Only [facility] [place] [id number] [phone] Miles Morton MD [address] [phone] Kidney replaced by transplant Scheduled Orders Name [...] Primary Kidney transplant status Kidney replaced by transplant documented in this encounter Care Teams Data Warehouse Analyst Relationship Specialty Start Date End Date Murray Pichardo MD [address] [place] [address] PCP - General 07/14/19 documented as of this encounter
--- OUTSIDE RECORDS SUMMARY | 2025-03-19 08:16 | XMS_ITS | Encounter Summary ---
Author Organization [facility] Address [address] [place] [address] Care Team Providers Care Licensed Social Worker Name Role Phone Murray Pichardo Primary Care Provider Unavaila ble Reason for Visit * Reason Onset Date Comments APPOINTMENT 12/11/2016 Encounter Details Date Type Department Care Team Description 12/11/2016 Telephone Gastroenterology - [place] [address] [place] [address] Ken Rosenberg MD APPOINTMENT Social History Tobacco Use Types Packs/Day Years Used Date Smoking Tobacco: Never Assessed Sex Assigned at Date Recorded Not on file documented as of this encounter Miscellaneous Notes * Telephone Encounter - Veronica Cano - 12/11/2016 2:34 PM EDT Message left for patient. Schedule consult with a pa. * Telephone Encounter - Ken Rosenberg MD - 12/11/2016 2:17 PM EDT Please schedule it with a P.A. * Telephone Encounter - Veronica Cano - 12/11/2016 1:54 PM EDT Patient has never been seen here at [place] and has an outside pcp. I did call [facility] and are recommending a consult first. Are you ok if I schedule the consult with you? * Telephone Encounter - Ken Rosenberg MD - 12/11/2016 12:46 PM EDT Chart reviewed. Screening colonoscopy should be performed in the hospital because of pt's multiple medical problems. Consultation not necessary. * Telephone Encounter - Veronica Cano - 12/11/2016 9:01 AM EDT Notes placed in Dr Hong's incoming. Please review. Can this patient be scheduled for colonoscopy or consult? documented in this encounter Plan of Treatment Not on file documented as of this encounter Visit Diagnoses Not on filedocumented in this encounter Care Teams Licensed Social Worker Relationship Specialty Start Date End Date Murray Pichardo PCP - General Internal Medicine 12/11/16 documented as of this encounter
--- OUTSIDE RECORDS SUMMARY | 2025-03-19 08:17 | XMS_ITS | Clinical Summary ---
Author Organization [facility] Address [address] [place] [address] Care Team Providers Care Marine Tower Operator Name Role Phone Pcp, No Primary Care [...] Discontinued 10/24/2018 Insurance Ashley SMILEY NATHANIELMaxwell [place]ATE[place] [id number] MEDICARE PART A & B MEDICAID OUT OF STATE [facility] [place] Member Subscriber Plan / Payer (Ef fective 2018-Present) Name:Aldo Olivarez Relation to Subscriber:Self Name:Aldo Olivarez Payer ID:Not on file Group ID:Not on file Type:Not on file Address: [facility] [id number] MEDICARE Care Teams Marine Tower Operator Relationship Specialty Start Date End Date Pcp, No [address] [place] [address] PCP - General 06/09/19
[2025-03-20 11:28] LABS: Tacrolimus Prograf 11.8 mcg/L
== END 2025-03-19 08:14 | disposition home or self-care (01) ==
LOC: HO.HMGCLDS 08:13
PROVIDERS: PCP Internal Medicine; Visit Provider Internal Medicine
DX: Z94.0 Kidney transplant status (principal)
CPT/HCPCS: 36415; 80197

== ENCOUNTER 2025-03-29 09:17 | Outpatient (AMB) | payer MEDICARE, SELFPAY ==
--- NOTE | 2025-03-29 09:30 | MHC.OFFVIS ---
Vital Signs 03/29/25 09:31 Height 5 ft 10 in Weight 198 lb 6.656 oz BMI 28.5 BP 140/67 H Blood Pressure Location Rt brachial Position Sitting Pulse 82 Pulse Source Pulse Oximeter Pulse Oximetry (%) 98 Oxygen Delivery Method Room Air Intake Visit Reasons: COPD Intake Note: pt is here for follow up and states he is doing well his breathing is good. Loom Repairer Required: No Allergies coconut Allergy (Severe, Verified 03/29/25 09:54) SWELLING demeclocycline (Demeclocycline) Allergy (Mild, Verified 03/29/25 09:54) RASH Medication List - Last Reconciled 03/29/25 by Navin Patterson MD albuterol sulfate 90 mcg/actuation 2 puffs PO Q4H PRN atorvastatin 20 mg PO DAILY beclomethasone dipropionate 40 mcg/actuation (Qvar RediHaler) 2 inhalations inhalation BID 30 days blood sugar diagnostic As directed doxazosin 4 mg PO DAILY levothyroxine 112 mcg PO metformin 500 mg PO BID nebivolol (Bystolic) 5 mg PO DAILY nifedipine ER 60 mg PO BID pantoprazole 40 mg PO DAILY Serevent Diskus (salmeterol) 1 inh PO BID NS tacrolimus 0.5 mg PO BID tacrolimus 1 mg PO BID Do you need a note to return to daycare/school/sports/work: No HPI HPI COPD: Details: Aldo is 69 years old very nice gentleman with longstanding history of asthma/COPD. HE NEVER SMOKED CIGARETTES . COPD is from his lifelong asthma, which has been well controlled. Has to use albuterol HFA only once in a while in hot and humid weather and cold weather in winter. He can walk around at his pace without extra shortness of breath. Has only occasional mild cough. Continues to use his prescribed inhalers daily. [facility] Medical History COPD (chronic obstructive pulmonary disease) Surgical History Kidney replaced by transplant Social History Patient Tobacco Use Status: Never used Tobacco Review of Systems Const All systems reviewed & are unremarkable except as noted in HPI and below Eyes Reports no additional complaints ENT Reports no additional complaints Card Denies chest pain, Denies irregular heart rhythm and Denies leg edema Resp Reports as per HPI GI Reports no additional complaints Reports no additional complaints Musc Reports back pain (Mild) Skin/Breast Reports system reviewed and no additional complaints, except as documented Neuro Reports no additional complaints Psych Reports no additional complaints Physical Exam Vital Signs: Last Vital Signs Pulse 82 03/29/25 09:31 BP 140/67 H 03/29/25 09:31 Pulse Ox 98 03/29/25 09:31 Oxygen Delivery Method Room Air 03/29/25 09:31 BMI result Body Mass Index 28.5 Const General: comfortable, no acute distress, alert and awake Orientation/consciousness: patient oriented x3 HEENT Head: Yes normal to inspection General nose exam: No nasal polyps present and No nasal discharge present Face and sinus: Yes sinuses nontender Mouth: oropharynx normal Throat: Yes posterior oropharynx normal Eyes General: appearance normal, both eyes and all related structures Neck Neck: Yes normal visual inspection, Yes no lymphadenopathy, Yes trachea midline and Yes no JVD Thyroid: Thyroid normal Chest Chest palpation & inspection: normal inspection of the chest, normal palpation of entire chest wall and no tenderness Resp Other: Percussion note hyper-resonant, breath sounds are distant with prolonged expiratory phase. Lungs are very clear without any crepitations or wheezes. Cardio Palpation: normal PMI Rate: regular rate Rhythm: regular rhythm Heart sounds: no gallops and no murmurs GI Palpation (GI): Soft to palpation, nontender, No hepatosplenomegaly present and no masses Auscultation: normal bowel sounds Back/Spine/Pelvis Thoracic/Lumbar Spine: thoracic and lumbar spine normal to inspection and thoraco-lumbar ROM limited Skin General skin exam: no rashes or lesions noted Neuro General: patient oriented x3 and no focal motor deficits Cranial nerves: Yes CN's II-XII intact bilaterally Extrem General: Yes normal to inspection, Yes no clubbing, cyanosis or edema and Yes no calf tenderness Psych Appearance: grossly normal and well kempt Speech and movement: Normal speech and movement present Assessment & Plan Assessment & Plan (1) COPD (chronic obstructive pulmonary disease): Comment: HE DOES HAVE CHRONIC , and SEVERE OBSTRUCTIVE PULMONARY DISORDER, BUT IT REMAINS VERY STABLE. HE CLAIMS THAT HE IS DOING WELL AND THERE IS NO WORSENING OF HIS BREATHING STATUS. Code(s): J44.9 - Chronic obstructive pulmonary disease, unspecified Category: Medical Plan: Continue to use QVAR-40 1 inhalation daily Serevent -50 1 inhalation b.i.d. Albuterol HFA 2 puffs Q 6 hours only p.r.n.. Revisit once a year is okay unless there is any need due to acute exacerbation during the year. Coding Level of Care Code Est Pt Level 3 (80370) Diagnoses COPD (chronic obstructive pulmonary disease) J44.9
[2025-03-29 09:31] VITALS: BP 140/67; PULSE 82; O2SAT 98; BMI 28.5
--- OUTSIDE RECORDS SUMMARY | 2025-03-29 09:43 | XMS_ITS | Encounter Summary ---
Author Organization [facility] Address [address] [facility] 200 [place] [address] Phone Care Team Providers Care Packager Head Name Role Phone Murray Pichardo MD Primary Care Provider [phone] Reason for Referral * Imaging (Routine) - Closed Specialty Diagnoses / Procedures Referred By Contac t Referred To Contact Diagnoses Carotid artery stenosis <Right side> Procedures Ultrasound carotid doppler bilateral Greg Cesar MD Phone: tel: fax: Referral ID Status Reason Start Date Expiration Date Visits Re quested Visits Authorized [id number] Closed 03/20/2024 03/20/2025 1 1 Encounter Details Date Type Department Care Team (Latest Contact Info) Description 03/20/2024 Office Communication [facility] [address] [facility] [address] [place] [address] Greg Cesar MD [address] [facility] [address] [place] [phone] Carotid artery stenosis <Right side> (Primary Dx); [...] next sev weeks--ok to have done at [facility] documented in this encounter Plan of Treatment Upcoming Encounters Date Type Department Care Team (Late st Contact Info) Description 04/09/2025 10:00 AM EDT Office Visit [facility] [address] [phone] Greg Cesar MD [facility] [address] [address] 04/17/2025 Orders Only [facility] [place] [address] [phone] Miles Morton MD [address] [phone] Kidney replaced by transplant Scheduled Orders Name [...] transplant documented in this encounter Care Teams Packager Head Relationship Specialty Start Date End Date Murray Pichardo MD [address] [place] [address] PCP - General 07/14/19 documented as of this encounter
--- OUTSIDE RECORDS SUMMARY | 2025-03-29 09:43 | XMS_ITS | Encounter Summary ---
Author Organization [facility] Address [address] [place] [address] Phone Care Team Providers Care Wafer Fabrication Technician Name Role Phone Murray Pichardo MD Unavailable [phone] Theresa Barrow MD Unavailable Murray Pichardo MD Unavailable [phone] Ken Cardona MD Unavailable [phone] Kristie Foster NP Unavailable [phone] Bello Katz MD Unavailable [phone] Murray Pichardo MD Primary Care Provider [phone] Michael Souza MD Unavailable [phone] Murray Pichardo MD Primary Care Provider Encounter Details Date Type Department Care Team (Latest Contact Info) Description 05/20/2018 Transcribe Orders [facility] Laboratory [address] [place], [place] [phone] Murray Pichardo MD [address] [place], [place] [phone] [email or web address] Pure hypercholesterolemia (Primary Dx); Essential hypertension, malignant; Type 2 diabetes mellitus with ESRD (end-stage renal disease); End stage renal disease; Special screening, prostate cancer Social History Tobacco Use Types Packs/Day Years Used Date Smoking Tobacco: Never Smokeless Tobacco: Never Alcohol Use Standard Drinks/Week Comments No 0 (1 standard drink = 0.6 oz pur e alcohol) Sex and Gender Information Value Date Recorded Sex Assigned at Not on file Legal Sex Male 9:57 PM EDT Gender Identity Not on file Sexual Orientation Not on file documented as of this encounter Plan of Treatment Upcoming Encounters Date Type Department Care Team (Late st Contact Info) Description 08/20/2025 8:00 AM EST Office Visit [facility] Internal Medicine [address] [place] [phone] Murray Pichardo MD [address] [place] [address] [email or web address] documented as of this encounter Results * PSA (screening) (05/20/2018 11:28 AM EDT) PSA 0.94 0 - 4.00 ng/mL [facility] Blood 05/20/2018 11:2 8 AM EDT 05/20/2018 11:31 AM EDT us Murray Pichardo MD LAB BLOOD ORDERABLES Final Re sult Performing Organization Address [facility] Co de Phone Number [address] [address] * Hemoglobin A1c (05/20/2018 11:28 AM EDT) HEMOGLOBIN A1C 5.6 4.3 - 5.8 % [facility] Blood 05/20/2018 11:2 8 AM EDT 05/20/2018 11:31 AM EDT us Murray Pichardo MD LAB BLOOD ORDERABLES Final Re sult Performing Organization Address [facility] Co de Phone Number [address] [address] * (ABNORMAL) Comprehensive metabolic panel (05/20/2018 11:28 AM EDT) SODIUM 133 133 - 146 mmol/L [facility] POTASSIUM 4.5 3.3 - 5.1 mmol/L [facility] CHLORIDE 87(L) 96 - 108 mmol/L [facility] CO2 29 21 - 35 mmol/L [facility] BUN 27(H) 6 - 19 mg/dL [facility] CREATININE 6.30(HH) 0.5 - 1.5 mg/dL [facility] Comment: Critical Value. Results called to and read back by: maría [email or web address] [id number] [email or web address] GLUCOSE 83 70 - 99 mg/dL [facility] ALBUMIN 4.1 3.9 - 4.8 g/dL [facility] TOTAL PROTEIN 7.0 6.5 - 8.0 g/dL [facility] CALCIUM 9.7 8.4 - 10.3 mg/dL [facility] ALKALINE PHOSPHATASE 92 39 - 117 U/L [facility] TOTAL BILIRUBIN 0.3 0.0 - 1.2 mg/dL [facility] AST 19 0 - 37 U/L [facility] ALT 8 0 - 40 U/L [facility] GLOBULIN 2.9 1 - 4.8 g/dL [facility] EGFR 9(L) >59 mL/min/1.7 3m2 [facility] Comment:If patient is black, multiply result by 1.159. Estimated glomerular filtration rate calculated using the CKD-EPI equation. ANION GAP 22(H) 10 - 20 mmol/L [facility] Blood 05/20/2018 11:2 8 AM EDT 05/20/2018 11:31 AM EDT us Murray Pichardo MD LAB BLOOD ORDERABLES Final Re sult [facility] [address] [place] [address] * (ABNORMAL) CBC (05/20/2018 11:28 AM EDT) WBC 6.32 3.40 - 11.20 K/uL [facility] RBC 4.39(L) 4.50 - 5.50 M/uL [facility] HGB 13.5 13.0 - 17.0 g/dL [facility] HCT 40.4 40.0 - 51.0 % [facility] PLT 262 130 - 400 K/uL [facility] MCV 92.0 79.0 - 98.0 fL [facility] MCH 30.8 27.0 - 34.8 pg [facility] MCHC 33.4 31.5 - 36.0 g/dL [facility] RDW 14.5 10.8 - 14.6 % [facility] MPV 9.4 9.4 - 12.4 fl [facility] NRBC 0.00 /100 WBCs [facility] ABSOLUTE NRBC 0.00 K/uL [facility] Blood 05/20/2018 11:2 8 AM EDT 05/20/2018 11:31 AM EDT us Murray Pichardo MD LAB BLOOD ORDERABLES Final Re sult Performing Organization Address [facility]/ZIP Co de Phone Number [address] [address] * (ABNORMAL) TSH (05/20/2018 11:28 AM EDT) TSH 0.18(L) 0.27 - 4.20 uIU/mL [facility] Blood 05/20/2018 11:2 8 AM EDT 05/20/2018 11:31 AM EDT us Murray Pichardo MD LAB BLOOD ORDERABLES Final Re sult Performing Organization Address City/[facility]/ZIP Co de Phone Number [address] [address] * (ABNORMAL) Lipid panel (05/20/2018 11:28 AM EDT) HDL 54 mg/dL [facility] Comment: Interpretation: Risk Level Males Decreased >45 mg/dL Average 40-45 mg/dL Increased <40 mg/dL CHOLESTEROL 118 0 - 240 mg/dL [facility] TRIGLYCERIDES 87 30 - 160 mg/dL [facility] LDL 47(L) 50 - 129 mg/dL [facility] Comment: LDL levels in terms of risk for coronary heart disease: <100 mg/dL: Optimal 100-129 mg/dL: Near or above optimal 130-159 mg/dL: Borderline high 160-189 mg/dL: High >190 mg/dL: Very High CARDIAC RISK RATIO 2.2(L) 3.4 - 5.0 C [facility] Blood 05/20/2018 11:2 8 AM EDT 05/20/2018 11:31 AM EDT us Murray Pichardo MD LAB BLOOD ORDERABLES Final Re sult [address] [address] documented in this encounter Visit Diagnoses Diagnosis Pure hypercholesterolemia- Primary Essential hypertension, malignant Type 2 diabetes mellitus with ESRD (end-stage renal disease) End stage renal disease Special screening, prostate cancer Special screening for malignant neoplasm of prostate documented in this encounter Additional Health Concerns Assessment Noted Time PHQ-2 Depression Total Score: 0 11/20/19 18 8:34 AM EDT documented as of this encounter Care Teams Wafer Fabrication Technician Relationship Specialty Start Date End Date Murray Pichardo MD [address] [place] [address] [email or web address] PCP - General Internal Medicine 08/19/17 05/28/21 Murray Pichardo MD [address] [place] [address] [email or web address] PCP - General Internal Medicine 05/29/21 Murray Pichardo MD [address] [place] [address] [email or web address] Insurance Assigned Provider 06/15/17 09/17/20 Theresa Barrow MD [address] [place] [id number] Historical LMR Provider 06/29/17 2 Murray Pichardo MD [address] [place] [address] Historical LMR Provider 06/29/17 Ken Cardona MD [address] [facility] [address] [place] [address] Historical LMR Provider 06/29/17 09/16/21 Kristie Foster NP [facility] [address] [place] [address] [email or web address] Historical LMR Provider 06/29/17 09/16/21 Bello Katz MD [address] [place] [address] [email or web address] Historical LMR Provider 06/29/17 09/16/21 Michael Souza MD [address] [place] [address] Ophthalmology 09/21/20 documented as of this encounter Additional Source Comments The information contained in this document represents components of the legal health record. It is not the complete legal health record.[facility]
--- OUTSIDE RECORDS SUMMARY | 2025-03-29 09:43 | XMS_ITS | Clinical Summary ---
Author Organization [facility] Address [address] [place] [address] Care Team Providers Care Client Portfolio Manager Name Role Phone Pcp, No Primary Care [...] Discontinued 10/24/2018 Insurance Ashley SMILEY NATHANIELMaxwell [place] [id number] MEDICARE PART A & B MEDICAID [place] [facility] [place] Subscriber Plan / Payer (Ef fective 2018-Present) Name:Aldo Olivarez Relation to Subscriber:Self Name:Aldo Olivarez Payer ID:Not on file Group ID:Not on file Type:Not on file Address: [facility] [address] MEDICARE Care Teams Client Portfolio Manager Relationship Specialty Start Date End Date Pcp, No [address] [place] [address] PCP - General 06/09/19
--- OUTSIDE RECORDS SUMMARY | 2025-03-29 09:44 | XMS_ITS ---
Author Name [facility] Organization Unknown Problems Problem Status Onset Date Problem Type Date of Resoluti on Source Complication of transplanted kidney, unspecified complication active EncounterDiagnosisAct CCT Encounters Encounter Type Encounter Reason Primary Diagnosis Location Date Ambulatory Unspecified complication of kidney transplant [facility] 08/27/2022 Care Team Organization Name Specialty Phone Email Start Date End Da te [facility] PCP,No Primary Care 08/27/2022 [facility] P[facility] Primary Care 10/05/2020 10/05/2020
== END 2025-03-29 09:54 | disposition home or self-care (01) ==
LOC: HO.HPS 09:18
PROVIDERS: PCP Internal Medicine; Visit Provider Internal Medicine
DX: J44.9 Chronic obstructive pulmonary disease, unspecified (principal)
CPT/HCPCS: 99213

== ENCOUNTER → 2025-03-29 09:17 | Outpatient (BNVA) | payer MEDICARE, SELFPAY | PROVIDERS: PCP Internal Medicine; Visit Provider Internal Medicine | DX: J44.9 Chronic obstructive pulmonary disease, unspecified (principal) | CPT/HCPCS: 99212 ==

== ENCOUNTER 2025-04-06 08:04 | Outpatient (REF) | payer MEDICARE, SELFPAY ==
--- OUTSIDE RECORDS SUMMARY | 2025-04-06 08:09 | XMS_ITS | Encounter Summary ---
Author Organization Formerly [facility] Address [address] [place] [address] Phone Care Team Providers Care Ceramic Chemist Name Role Phone Murray Pichardo MD Unavailable Theresa Barrow MD Unavailable [phone] Murray Pichardo MD Unavailable [phone] Ken Cardona MD Unavailable Kristie Foster NP Unavailable [phone] Bello Katz MD Unavailable [phone] Murray Pichardo MD Primary Care Provider Michael Souza MD Unavailable Murray Pichardo MD Primary Care Provider Encounter Details Date Type Department Care Team (Latest Contact Info) Description 05/20/2018 Transcribe Orders [facility] Laboratory [address] [place], [place] [phone] Murray Pichardo MD [address] [place], [place] [phone] [email or web address] Pure hypercholesterolemia (Primary Dx); Essential [...] Description 08/20/2025 8:00 AM EST Office Visit [facility] Internal Medicine [address] [place] [phone] Murray Pichardo MD [address] [place] [address] [email or web address] documented as of this encounter Results * PSA (screening) (05/20/2018 11:28 AM EDT) PSA 0.94 0 - 4.00 ng/mL [facility] Blood 05/20/2018 11:2 8 AM EDT 05/20/2018 11:31 AM EDT us Murray Pichardo MD LAB BLOOD ORDERABLES Final Re sult Performing Organization Address [facility] Co de Phone Number [address] [address] * Hemoglobin A1c (05/20/2018 11:28 AM EDT) HEMOGLOBIN A1C 5.6 4.3 - 5.8 % [facility] Blood 05/20/2018 11:2 8 AM EDT 05/20/2018 11:31 AM EDT us Murray Pichardo MD LAB BLOOD ORDERABLES Final Re sult Performing Organization Address [facility] Co de Phone Number [address] [address] * (ABNORMAL) Comprehensive metabolic panel (05/20/2018 11:28 AM EDT) SODIUM 133 133 - 146 mmol/L [facility] POTASSIUM 4.5 3.3 - 5.1 mmol/L [facility] CHLORIDE 87(L) 96 - 108 mmol/L [facility] CO2 29 21 - 35 mmol/L [facility] BUN 27(H) 6 - 19 mg/dL [facility] CREATININE 6.30(HH) 0.5 - 1.5 mg/dL [facility] Comment: Critical Value. Results called to and read back by: maría [email or web address] [id number] jcm GLUCOSE 83 70 - 99 mg/dL [facility] ALBUMIN 4.1 3.9 - 4.8 g/dL [facility] TOTAL PROTEIN 7.0 6.5 - 8.0 g/dL [facility] CALCIUM 9.7 8.4 - 10.3 mg/dL [facility] ALKALINE PHOSPHATASE 92 39 - 117 U/L [facility] TOTAL BILIRUBIN 0.3 0.0 - 1.2 mg/dL [facility] AST 19 0 - 37 U/L [facility] ALT 8 0 - 40 U/L [facility] GLOBULIN 2.9 1 - 4.8 g/dL [facility] EGFR 9(L) >59 mL/min/1.7 3m2 [facility] Comment:If patient is black, multiply result by 1.159. Estimated glomerular filtration rate calculated using the CKD-EPI equation. ANION GAP 22(H) 10 - 20 mmol/L [facility] Blood 05/20/2018 11:2 8 AM EDT 05/20/2018 11:31 AM EDT us Murray Pichardo MD LAB BLOOD ORDERABLES Final Re sult [facility] [address] [place] [address] * (ABNORMAL) CBC (05/20/2018 11:28 AM EDT) WBC 6.32 3.40 - 11.20 K/uL [facility] RBC 4.39(L) 4.50 - 5.50 M/uL [facility] HGB 13.5 13.0 - 17.0 g/dL [facility] HCT 40.4 40.0 - 51.0 % [facility] PLT 262 130 - 400 K/uL [facility] MCV 92.0 79.0 - 98.0 fL [facility] MCH 30.8 27.0 - 34.8 pg [facility] MCHC 33.4 31.5 - 36.0 g/dL [facility] RDW 14.5 10.8 - 14.6 % [facility] MPV 9.4 9.4 - 12.4 fl [facility] NRBC 0.00 /100 WBCs [facility] ABSOLUTE NRBC 0.00 K/uL [facility] Blood 05/20/2018 11:2 8 AM EDT 05/20/2018 11:31 AM EDT us Murray Pichardo MD LAB BLOOD ORDERABLES Final Re sult Performing Organization Address [facility]/ZIP Co de Phone Number [address] [address] * (ABNORMAL) TSH (05/20/2018 11:28 AM EDT) TSH 0.18(L) 0.27 - 4.20 uIU/mL [facility] Blood 05/20/2018 11:2 8 AM EDT 05/20/2018 11:31 AM EDT us Murray Pichardo MD LAB BLOOD ORDERABLES Final Re sult Performing Organization Address City/[facility]/ZIP Co de Phone Number [address] [address] * (ABNORMAL) Lipid panel (05/20/2018 11:28 AM EDT) HDL 54 mg/dL [facility] Comment: Interpretation: Risk Level Males Decreased >45 mg/dL Average 40-45 mg/dL Increased <40 mg/dL CHOLESTEROL 118 0 - 240 mg/dL [facility] TRIGLYCERIDES 87 30 - 160 mg/dL [facility] LDL 47(L) 50 - 129 mg/dL [facility] Comment: LDL levels in terms of risk for coronary heart disease: <100 mg/dL: Optimal 100-129 mg/dL: Near or above optimal 130-159 mg/dL: Borderline high 160-189 mg/dL: High >190 mg/dL: Very High CARDIAC RISK RATIO 2.2(L) 3.4 - 5.0 C [facility] Blood 05/20/2018 11:2 8 AM EDT 05/20/2018 11:31 AM EDT us Murray Pichardo MD LAB BLOOD ORDERABLES Final Re sult [address] [address] documented in this encounter Visit Diagnoses Diagnosis [...] documented as of this encounter Care Teams Ceramic Chemist Relationship Specialty Start Date End Date Murray Pichardo MD [address] [place] [address] [email or web address] PCP - General Internal Medicine 08/19/17 05/28/21 Murray Pichardo MD [address] [place] [address] [email or web address] PCP - General Internal Medicine 05/29/21 Murray Pichardo MD [address] [place] [address] [email or web address] Insurance Assigned Provider 06/15/17 09/17/20 Theresa Barrow MD [address] [place] [address] Historical LMR Provider 06/29/17 2 Murray Pichardo MD [address] [place] [address] Historical LMR Provider 06/29/17 Ken Cardona MD 22 [facility] [address] [place] [address] Historical LMR Provider 06/29/17 09/16/21 Kristie Foster NP 26 [facility] 6 [place] [address] [email or web address] Historical LMR Provider 06/29/17 09/16/21 Bello Katz MD [address] [place] [address] [email or web address] Historical LMR Provider 06/29/17 09/16/21 Michael Souza MD [address] [place] [address] Ophthalmology 09/21/20 documented as of this encounter Additional Source Comments The information contained in this document represents components of the legal health record. It is not the complete legal health record.[facility]ly [facility]
--- OUTSIDE RECORDS SUMMARY | 2025-04-06 08:09 | XMS_ITS | Encounter Summary ---
Author Organization [facility] Address [address] [place] [address] Care Team Providers Care Imaging Center Manager Name Role Phone Murray Pichardo Primary Care Provider Unavaila ble Reason for Visit * Reason Onset Date Comments APPOINTMENT 12/11/2016 Encounter Details Date Type Department Care Team Description 12/11/2016 Telephone Gastroenterology - [place] [address] [place] [address] Ken Rosenberg MD APPOINTMENT Social History Tobacco [...] Patient has never been seen here at [facility] and has an outside pcp. I did call [facility] and are recommending a consult first. Are [...] on filedocumented in this encounter Care Teams Imaging Center Manager Relationship Specialty Start Date End Date Murray Pichardo PCP - General Internal Medicine 12/11/16 documented as of this encounter
--- OUTSIDE RECORDS SUMMARY | 2025-04-06 08:09 | XMS_ITS | Encounter Summary ---
Author Organization [facility] Address [address] [facility] [address] [place] [address] Phone Care Team Providers Care Human Resources Trainer Name Role Phone Murray Pichardo MD Primary Care Provider [phone] Reason for Referral * Imaging (Routine) - Closed Specialty Diagnoses / Procedures Referred By Contac t Referred To Contact Diagnoses Carotid artery stenosis <Right side> Procedures Ultrasound carotid doppler bilateral Greg Cesar MD Phone: tel: fax: Referral ID Status Reason Start Date Expiration Date Visits Re quested Visits Authorized [id number] Closed 03/20/2024 03/20/2025 1 1 Encounter Details Date Type Department Care Team (Latest Contact Info) Description 03/20/2024 Office Communication [facility] [address] [facility] [address] [place] [address] Greg Cesar MD [address] [facility] [address] [place] [phone] Carotid artery stenosis <Right side> (Primary Dx); [...] weeks--ok to have done at [facility] documented in this encounter Plan of Treatment Upcoming Encounters Date Type Department Care Team (Late st Contact Info) Description 04/09/2025 10:00 AM EDT [facility] Visit [facility] [address] [phone] Greg Cesar MD [facility] [address] [phone] 04/17/2025 Orders Only [facility] [place] [phone] [phone] Miles Morton MD [address] [phone] Kidney replaced by transplant Scheduled Orders Name [...] transplant documented in this encounter Care Teams Human Resources Trainer Relationship Specialty Start Date End Date Murray Pichardo MD [address] [place] [address] PCP - General 07/14/19 documented as of this encounter
--- OUTSIDE RECORDS SUMMARY | 2025-04-06 08:09 | XMS_ITS | Clinical Summary ---
Author Organization [facility] Address [address] [place] [address] Care Team Providers Care Grants And Contracts Assistant Name Role Phone Pcp, No Primary Care [...] Discontinued 10/24/2018 Insurance Ashley SMILEY NATHANIELMaxwell [place]ATE[place] [id number] MEDICARE PART A & B MEDICAID OUT OF STATE [facility] Member Subscriber Plan / Payer (Ef fective 2018-Present) Name:Aldo Olivarez Relation to Subscriber:Self Name:Aldo Olivarez Payer ID:Not on file Group ID:Not on file Type:Not on file Address: [facility], [place] [address] MEDICARE Care Teams Grants And Contracts Assistant Relationship Specialty Start Date End Date Pcp, No [address] [place] [address] PCP - General 06/09/19
[2025-04-06 10:14] LABS: MANUAL DIFF FLAG NO
[2025-04-06 10:17] LABS: Hematocrit 36.6 % (42.0-52.0); Hemoglobin 12.8 g/dl (14.0-18.0); Imm Gran Abs Auto 0.02 X10*3/uL (0.00-0.03); Imm Gran Pct Auto 0.4 % (0.0-0.4); Lymphocytes Absolute Auto 1.2 X10*3/uL (1.2-4.9); Mean Corpuscular HGB Conc 35.0 g/dl (31.0-36.0); Mean Corpuscular Hemoglobin 32.2 pg (27.0-33.0); Mean Corpuscular Volume 92.2 fL (80.0-98.0); NRBC Abs Auto 0.000 X10*3/uL (0.0-0.012); NRBC Pct Auto 0.0 /100WBC (0.0-0.2); Platelet Count 187 X10*3/uL (160-400); Red Blood Count 3.97 X10*6/uL (4.60-5.80); White Blood Count 4.6 X10*3/uL (4.8-10.8)
[2025-04-06 10:34] LABS: Appearance Urine Clear; Glucose Urine UA Negative (Negative); PH 6.0 (5.0-9.0); Specific Gravity - Urine <= 1.005 (1.005-1.025)
[2025-04-06 10:58] LABS: Microalbum/Creatinine Ratio Ur 72.7 ug/mg cr (<30); Total Protein Urine Random < 7 mg/dL (<12)
[2025-04-06 10:59] LABS: Parathyroid Hormone Intact 107.8 pg/mL (8.7-77.1)
[2025-04-06 11:14] LABS: Anion Gap 16 (12-20); Blood Urea Nitrogen 9 mg/dL (9-16); Calcium 9.4 mg/dL (8.4-10.2); Carbon Dioxide 20 mmol/L (22-29); Chloride 98 mmol/L (96-108); Estimated Glomerular Filt Rate > 60; Magnesium 1.6 mg/dL (1.6-2.6); Potassium 4.1 mmol/L (3.3-5.1); Sodium 130 mmol/L (135-145); Uric Acid 6.7 mg/dL (3.4-7.0)
[2025-04-07 10:34] LABS: Tacrolimus Prograf 7.6 mcg/L
== END 2025-04-06 08:05 | disposition home or self-care (01) ==
LOC: HO.HMGCLDS 08:04
PROVIDERS: PCP Internal Medicine; Visit Provider Internal Medicine
DX: Z51.81 Encounter for therapeutic drug level monitoring (principal); Z94.0 Kidney transplant status; Z79.621 Long term (current) use of calcineurin inhibitor
CPT/HCPCS: 36415; 80051; 80197; 81003; 82043; 82306; 82310; 82565; 82570; 83735; 83970; 84100; 84156; 84520; 84550; 85025

== ENCOUNTER 2025-04-12 08:20 | Outpatient (REF) | payer MEDICARE, SELFPAY ==
--- NOTE | ~2025-04-12 | XR_ITS ---
EXAMINATION: XR LUMBAR SPINE 2-3 VIEWS HISTORY: CHRONIC BILATERAL LOW BACK PAIN WITHOUT SCIATICA COMPARISON: There are no prior studies for comparison. FINDINGS: AP, lateral, and coned down views of the lumbar spine are submitted. Osseous mineralization is normal. Five nonrib-bearing lumbar vertebral bodies are identified, maintaining normal height and alignment without evidence of fracture or spondylolisthesis. There is mild degenerative disc disease with disc space narrowing. This is most prominent at the L4-5 and L5-S1 levels. The posterior elements are intact. There is calcification of the abdominal aorta and its major branches. XR/XR lumbar spine 2-3V IMPRESSION: Mild degenerative disc disease. Electronically signed by: Rodrigo Leon MD 04/12/2025 09:30 AM EDT
--- OUTSIDE RECORDS SUMMARY | 2025-04-12 08:32 | XMS_ITS | Encounter Summary ---
Author Organization [facility] Address [address] [place] [address] Phone Care Team Providers Care Brim Pouncing Machine Operator Name Role Phone Murray Pichardo MD Unavailable Theresa Barrow MD Unavailable [phone] Murray Pichardo MD Unavailable [phone] Ken Cardona MD Unavailable [phone] Kristie Foster NP Unavailable [phone] Bello Katz MD Unavailable [phone] Murray Pichardo MD Primary Care Provider Michael Souza MD Unavailable Murray Pichardo MD Primary Care Provider [phone] Encounter Details Date Type Department Care Team (Latest Contact Info) Description 05/20/2018 Transcribe Orders [facility] Laboratory [address] [place], [place] [phone] Murray Pichardo MD [address] [place], [place] [phone] [email or web address] Pure hypercholesterolemia (Primary Dx); Essential [...] Description 08/20/2025 8:00 AM EST Office Visit [facility] Internal Medicine [address] [place] [phone] Murray Pichardo MD [address] [place] [address] [email or web address] documented as of this encounter Results * PSA (screening) (05/20/2018 11:28 AM EDT) PSA 0.94 0 - 4.00 ng/mL [facility] Blood 05/20/2018 11:2 8 AM EDT 05/20/2018 11:31 AM EDT us Murray Pichardo MD LAB BLOOD ORDERABLES Final Re sult Performing Organization Address [facility] Co de Phone Number [address] [address] * Hemoglobin A1c (05/20/2018 11:28 AM EDT) HEMOGLOBIN A1C 5.6 4.3 - 5.8 % [facility] Blood 05/20/2018 11:2 8 AM EDT 05/20/2018 11:31 AM EDT us Murray Pichardo MD LAB BLOOD ORDERABLES Final Re sult Performing Organization Address [facility] Co de Phone Number [address] [address] * (ABNORMAL) Comprehensive metabolic panel (05/20/2018 11:28 AM EDT) SODIUM 133 133 - 146 mmol/L [facility] POTASSIUM 4.5 3.3 - 5.1 mmol/L [facility] CHLORIDE 87(L) 96 - 108 mmol/L [facility] CO2 29 21 - 35 mmol/L [facility] BUN 27(H) 6 - 19 mg/dL [facility] CREATININE 6.30(HH) 0.5 - 1.5 mg/dL [facility] Comment: Critical Value. Results called to and read back by: maría dominguez [id number] jcm GLUCOSE 83 70 - 99 mg/dL [facility] ALBUMIN 4.1 3.9 - 4.8 g/dL [facility] TOTAL PROTEIN 7.0 6.5 - 8.0 g/dL [facility] CALCIUM 9.7 8.4 - 10.3 mg/dL [facility] ALKALINE PHOSPHATASE 92 39 - 117 U/L [facility] TOTAL BILIRUBIN 0.3 0.0 - 1.2 mg/dL [facility] AST 19 0 - 37 U/L [facility] ALT 8 0 - 40 U/L [facility] GLOBULIN 2.9 1 - 4.8 g/dL [facility] EGFR 9(L) >59 mL/min/1.7 3m2 [facility] Comment:If patient is black, multiply result by 1.159. Estimated glomerular filtration rate calculated using the CKD-EPI equation. ANION GAP 22(H) 10 - 20 mmol/L [facility] Blood 05/20/2018 11:2 8 AM EDT 05/20/2018 11:31 AM EDT us Murray Pichardo MD LAB BLOOD ORDERABLES Final Re sult [facility] [address] [place] [address] * (ABNORMAL) CBC (05/20/2018 11:28 AM EDT) WBC 6.32 3.40 - 11.20 K/uL [facility] RBC 4.39(L) 4.50 - 5.50 M/uL [facility] HGB 13.5 13.0 - 17.0 g/dL [facility] HCT 40.4 40.0 - 51.0 % [facility] PLT 262 130 - 400 K/uL [facility] MCV 92.0 79.0 - 98.0 fL [facility] MCH 30.8 27.0 - 34.8 pg [facility] MCHC 33.4 31.5 - 36.0 g/dL [facility] RDW 14.5 10.8 - 14.6 % [facility] MPV 9.4 9.4 - 12.4 fl [facility] NRBC 0.00 /100 WBCs [facility] ABSOLUTE NRBC 0.00 K/uL [facility] Blood 05/20/2018 11:2 8 AM EDT 05/20/2018 11:31 AM EDT us Murray Pichardo MD LAB BLOOD ORDERABLES Final Re sult Performing Organization Address [facility]/ZIP Co de Phone Number [address] [address] * (ABNORMAL) TSH (05/20/2018 11:28 AM EDT) TSH 0.18(L) 0.27 - 4.20 uIU/mL [facility] Blood 05/20/2018 11:2 8 AM EDT 05/20/2018 11:31 AM EDT us Murray Pichardo MD LAB BLOOD ORDERABLES Final Re sult Performing Organization Address City/[facility]/ZIP Co de Phone Number [address] [address] * (ABNORMAL) Lipid panel (05/20/2018 11:28 AM EDT) HDL 54 mg/dL [facility] Comment: Interpretation: Risk Level Males Decreased >45 mg/dL Average 40-45 mg/dL Increased <40 mg/dL CHOLESTEROL 118 0 - 240 mg/dL [facility] TRIGLYCERIDES 87 30 - 160 mg/dL [facility] LDL 47(L) 50 - 129 mg/dL [facility] Comment: LDL levels in terms of risk for coronary heart disease: <100 mg/dL: Optimal 100-129 mg/dL: Near or above optimal 130-159 mg/dL: Borderline high 160-189 mg/dL: High >190 mg/dL: Very High CARDIAC RISK RATIO 2.2(L) 3.4 - 5.0 C [facility] Blood 05/20/2018 11:2 8 AM EDT 05/20/2018 11:31 AM EDT us Murray Pichardo MD LAB BLOOD ORDERABLES Final Re sult [address] [address] documented in this encounter Visit Diagnoses Diagnosis [...] documented as of this encounter Care Teams Brim Pouncing Machine Operator Relationship Specialty Start Date End Date Murray Pichardo MD [address] [place] [address] [email or web address] PCP - General Internal Medicine 08/19/17 05/28/21 Murray Pichardo MD [address] [place] [address] [email or web address] PCP - General Internal Medicine 05/29/21 Murray Pichardo MD [address] [place] [address] [email or web address] Insurance Assigned Provider 06/15/17 09/17/20 Theresa Barrow MD [address] [place] [address] Historical LMR Provider 06/29/17 2 Murray Pichardo MD [address] [place] [address] Historical LMR Provider 06/29/17 Ken Cardona MD 22 [facility] [address] [place] [address] Historical LMR Provider 06/29/17 09/16/21 Kristie Foster NP 26 [facility] 6 [place] [address] [email or web address] Historical LMR Provider 06/29/17 09/16/21 Bello Katz MD [address] [place] [address] [email or web address] Historical LMR Provider 06/29/17 09/16/21 Michael Souza MD [address] [place] [address] Ophthalmology 09/21/20 documented as of this encounter Additional Source Comments The information contained in this document represents components of the legal health record. It is not the complete legal health record.[facility]
--- OUTSIDE RECORDS SUMMARY | 2025-04-12 08:32 | XMS_ITS | Encounter Summary ---
Author Organization [facility] Address [address] [facility] [address] [place] [address] Phone Care Team Providers Care Python Developer Name Role Phone Murray Pichardo MD Primary Care Provider [phone] Reason for Referral * Imaging (Routine) - Closed Specialty Diagnoses / Procedures Referred By Contac t Referred To Contact Diagnoses Carotid artery stenosis <Right side> Procedures Ultrasound carotid doppler bilateral Greg Cesar MD Phone: tel: fax: Referral ID Status Reason Start Date Expiration Date Visits Re quested Visits Authorized [id number] Closed 03/20/2024 03/20/2025 1 1 Encounter Details Date Type Department Care Team (Latest Contact Info) Description 03/20/2024 Office Communication [facility] [address] [facility] [address] [place] [address] Greg Cesar MD [address] [facility] [address] [place] [phone] Carotid artery stenosis <Right side> (Primary Dx); [...] next sev weeks--ok to have done at [facility] documented in this encounter Plan of Treatment Upcoming Encounters Date Type Department Care Team (Late st Contact Info) Description 04/17/2025 Orders Only [facility] [address] [place] [phone] Miles Morton MD [address] [phone] Kidney replaced by transplant 04/30/2025 9:15 AM EDT Office Visit [facility] [address] [phone] Greg Cesar MD [address] [phone] Scheduled Orders Name Type Priority Associated Diagnoses [...] transplant documented in this encounter Care Teams Python Developer Relationship Specialty Start Date End Date Murray Pichardo MD [address] [place] [address] PCP - General 07/14/19 documented as of this encounter
--- OUTSIDE RECORDS SUMMARY | 2025-04-12 08:32 | XMS_ITS | Clinical Summary ---
Author Organization [facility] Address [address] [place] [address] Care Team Providers Care Events And Promotions Assistant Name Role Phone Pcp, No Primary [...] Hemoglobin A1C Discontinued 10/24/2018 Insurance Ashley SMILEY RACHELKYUNG [place] [id number] MEDICARE PART A & B MEDICAID OUT OF STATE [facility] Member Subscriber Plan / Payer (Ef fective 2018-Present) Name:Aldo Olivarez Relation to Subscriber:Self Name:Aldo Olivarez Payer ID:Not on file Group ID:Not on file Type:Not on file Address: [facility] [address] MEDICARE Care Teams Events And Promotions Assistant Relationship Specialty Start Date End Date Pcp, No [address] [place] [address] PCP - General 06/09/19
== END 2025-04-12 08:21 | disposition home or self-care (01) ==
LOC: HO.HMGCX 08:20
PROVIDERS: PCP Internal Medicine; Visit Provider Internal Medicine
DX: M54.50 Low back pain, unspecified (principal); G89.29 Other chronic pain
CPT/HCPCS: 72100

== ENCOUNTER → 2025-04-12 08:30 | Outpatient (BNV) | payer MEDICARE, SELFPAY | PROVIDERS: PCP Internal Medicine; Visit Provider Radiology Diagnostic Radiology | DX: M54.50 Low back pain, unspecified (principal) | CPT/HCPCS: 72100 ==

== ENCOUNTER 2025-07-29 07:51 | Outpatient (REF) | payer MEDICARE, SELFPAY ==
--- OUTSIDE RECORDS SUMMARY | 2025-07-29 08:04 | XMS_ITS | Encounter Summary ---
Author Organization [facility] Address [address] [place] [address] Phone Care Team Providers Care Service Greeter Name Role Phone Murray Pichardo MD Unavailable [phone] Theresa Barrow MD Unavailable Murray Pichardo MD Unavailable Ken Cardona MD Unavailable Kristie Foster NP Unavailable [phone] Bello Katz MD Unavailable [phone] Murray Pichardo MD Primary Care Provider Michael Souza MD Unavailable Murray Pichardo MD Primary Care Provider Encounter Details Date Type Department Care Team (Latest Contact Info) Description 05/20/2018 Transcribe Orders [facility] [place] [address] [place], [place] [phone] Murray Pichardo MD [address] [place], [place] [id number] [email or web address] Pure hypercholesterolemia (Primary Dx); Essential [...] Description 08/20/2025 8:00 AM EST Office Visit [facility] Internal Medicine [address] [place] [address] Murray Pichardo MD [address] [place] [address] [email or web address] documented as of this encounter Results * PSA (screening) (05/20/2018 11:28 AM EDT) PSA 0.94 0 - 4.00 ng/mL [facility] Blood 05/20/2018 11:2 8 AM EDT 05/20/2018 11:31 AM EDT us Murray Pichardo MD LAB BLOOD BKR ORDERABLES Nica l Result Performing Organization Address City/[facility] Co de Phone Number [address] [address] * Hemoglobin A1c (05/20/2018 11:28 AM EDT) HEMOGLOBIN A1C 5.6 4.3 - 5.8 % [facility] Blood 05/20/2018 11:2 8 AM EDT 05/20/2018 11:31 AM EDT us Murray Pichardo MD LAB BLOOD BKR ORDERABLES Nica l Result Performing Organization Address City/[facility] Co de Phone Number [address] [address] * (ABNORMAL) Comprehensive metabolic panel (05/20/2018 11:28 AM EDT) SODIUM 133 133 - 146 mmol/L [facility] POTASSIUM 4.5 3.3 - 5.1 mmol/L [facility] CHLORIDE 87(L) 96 - 108 mmol/L [facility] CO2 29 21 - 35 mmol/L [facility] BUN 27(H) 6 - 19 mg/dL [facility] CREATININE 6.30(HH) 0.5 - 1.5 mg/dL [facility] Comment: Critical Value. Results called to and read back by: maría dominguez [id number] jcm GLUCOSE 83 70 - 99 mg/dL [facility] ALBUMIN 4.1 3.9 - 4.8 g/dL [facility] TOTAL PROTEIN 7.0 6.5 - 8.0 g/dL [facility] CALCIUM 9.7 8.4 - 10.3 mg/dL [facility] ALKALINE PHOSPHATASE 92 39 - 117 U/L [facility] TOTAL BILIRUBIN 0.3 0.0 - 1.2 mg/dL [facility] AST 19 0 - 37 U/L [facility] ALT 8 0 - 40 U/L [facility] GLOBULIN 2.9 1 - 4.8 g/dL [facility] EGFR 9(L) >59 mL/min/1.7 3m2 [facility] Comment:If patient is black, multiply result by 1.159. Estimated glomerular filtration rate calculated using the CKD-EPI equation. ANION GAP 22(H) 10 - 20 mmol/L [facility] Blood 05/20/2018 11:2 8 AM EDT 05/20/2018 11:31 AM EDT us Murray Pichardo MD LAB BLOOD BKR ORDERABLES Nica l Result [facility] [address] [place], [place] [phone] * (ABNORMAL) CBC (05/20/2018 11:28 AM EDT) WBC 6.32 3.40 - 11.20 K/uL [facility] RBC 4.39(L) 4.50 - 5.50 M/uL [facility] HGB 13.5 13.0 - 17.0 g/dL [facility] HCT 40.4 40.0 - 51.0 % [facility] PLT 262 130 - 400 K/uL [facility] MCV 92.0 79.0 - 98.0 fL [facility] MCH 30.8 27.0 - 34.8 pg [facility] MCHC 33.4 31.5 - 36.0 g/dL [facility] RDW 14.5 10.8 - 14.6 % [facility] MPV 9.4 9.4 - 12.4 fl [facility] NRBC 0.00 /100 WBCs [facility] ABSOLUTE NRBC 0.00 K/uL [facility] Blood 05/20/2018 11:2 8 AM EDT 05/20/2018 11:31 AM EDT Murray Pichardo MD LAB BLOOD BKR ORDERABLES Nica l Result Performing Organization Address City/[facility]/ZIP Co de Phone Number [address] [address] * (ABNORMAL) TSH (05/20/2018 11:28 AM EDT) TSH 0.18(L) 0.27 - 4.20 uIU/mL [facility] Blood 05/20/2018 11:2 8 AM EDT 05/20/2018 11:31 AM EDT Murray Pichardo MD LAB BLOOD BKR ORDERABLES Nica l Result [address] [address] * (ABNORMAL) Lipid panel (05/20/2018 11:28 AM EDT) HDL 54 mg/dL [facility] Comment: Interpretation: Risk Level Males Decreased >45 mg/dL Average 40-45 mg/dL Increased <40 mg/dL CHOLESTEROL 118 0 - 240 mg/dL [facility] TRIGLYCERIDES 87 30 - 160 mg/dL [facility] LDL 47(L) 50 - 129 mg/dL [facility] Comment: LDL levels in terms of risk for coronary heart disease: <100 mg/dL: Optimal 100-129 mg/dL: Near or above optimal 130-159 mg/dL: Borderline high 160-189 mg/dL: High >190 mg/dL: Very High CARDIAC RISK RATIO 2.2(L) 3.4 - 5.0 [facility] Blood 05/20/2018 11:2 8 AM EDT 05/20/2018 11:31 AM EDT us Murray Pichardo MD LAB BLOOD BKR ORDERABLES Nica lazo Result [address] [address] documented in this encounter Visit Diagnoses Diagnosis [...] documented as of this encounter Care Teams Service Greeter Relationship Specialty Start Date End Date Murray Pichardo MD [address] [place] [address] [email or web address] PCP - General Internal Medicine 08/19/17 05/28/21 Murray Pichardo MD [address] [place] [address] [email or web address] PCP - General Internal Medicine 05/29/21 Murray Pichardo MD [address] [place] [address] [email or web address] Insurance Assigned Provider 06/15/17 09/17/20 Theresa Barrow MD [address] [place] [address] Historical LMR Provider 06/29/17 2 Murray Pichardo MD [address] [place] [address] Historical LMR Provider 06/29/17 Ken Cardona MD [address] [place] [address] [address] [place] [address] Historical LMR Provider 06/29/17 09/16/21 Kristie Foster NP [address] [place] [address] 6 [place] [address] Historical LMR Provider 06/29/17 09/16/21 Bello Katz MD [address] [place] [address] [email or web address] Historical LMR Provider 06/29/17 09/16/21 Michael Souza MD [address] [place] [address] Ophthalmology 09/21/20 documented as of this encounter Additional Source Comments The information contained in this document represents components of the legal health record. It is not the complete legal health record.[facility]
--- OUTSIDE RECORDS SUMMARY | 2025-07-29 08:05 | XMS_ITS | Encounter Summary ---
Author Organization [facility] Address [address] [place] [address] Phone Care Team Providers Care Medical Sales Name Role Phone Murray Pichardo MD Unavailable [phone] Michael Souza MD Unavailable [phone] Murray Pichardo MD Primary Care Provider Reason for Visit * Reason Onset Date Comments Pre-op Exam 05/19/2025 Encounter Details Date Type Department Care Team (Late st Contact Info) Description 05/19/2025 Telephone Machine Talker [facility] Internal Medicine [address] [place], [place] [phone] Murray Pichardo MD [address] [place] [address] [email or web address] Pre-op Exam Social History Tobacco Use Types Packs/Day Years Used Date Smoking Tobacco: Never Smokeless Tobacco: Never Alcohol Use Standard Drinks/Week Comments Yes 0 (1 standard drink = 0.6 oz pur e alcohol) 5-6 cans of beer a month Education Answer Date Recorded Are you interested in more education? Not on charlie e 01/04/2023 Are you concerned about learning? Not on file 01/04/2023 No 01/04/2023 No 01/04/2023 Digital Access Answer Date Recorded No 02/04/2023 No 02/04/2023 Reliable internet access at home? Not on file 02/04/2023 Device with a working camera? Not on file Intimate Partner Violence Answer Date R ecorded Denied Basic Needs Not on file 03/01/2025 In the past 12 months have y ou been in a relationship with a person who hurts, threatens, or tries to control you? No 03/01/2025 Worried food would run out Not on file 03/01 In the past 12 months have y ou been in a relationship with a person who hurts, threatens, or tries to control you? No 03/01/2025 Sex and Gender Information Value Date Recorded Sex Assigned at Not on file Legal Sex Male 9:57 PM EDT Gender Identity Not on file Sexual Orientation Not on file documented as of this encounter Progress Notes * Cecille Jimenez PA-C - 05/19/2025 4:46 PM EDT Noted. * Mauricio Dorado MA - 05/19/2025 4:41 PM EDT Huddle note updated, form laced in folder. * Ariana Sainz - 05/19/2025 3:18 PM EDT LVM for Siobhan with preop date of 06/08/2025. Requested they notify patient of clearance visit. Form completed and placed in providers box. * Alexis Matta - 05/19/2025 2:52 PM EDT Pre-op Appointment Request Type of Anesthesia: general Procedure / Surgery Type: carotid endarterectomy Location of Procedure: [facility] Is EKG needed:YES/NO: yes Is Lab Work needed:YES/NO: yes - see request in media Procedure Date: 07/06 Name of Surgeon (First, Last): Dr Michele Name of person to contact with Pre-op info, including contact number: Siobhan [phone] Confirm you have informed the patient that the Pre-op Paperwork must be faxed to the office before the appt.:yes or no or NA: Yes [facility] Call Center CSS Agent (Please do not reply to this user, as this inbox is not monitored.) Thank you documented in this encounter Plan of Treatment Upcoming Encounters Date Type Department Care Team (Late st Contact Info) Description 08/20/2025 8:00 AM EST Office Visit [facility] Internal Medicine [address] [place] [address] Murray Pichardo MD [address] [place] [address] [email or web address] documented as of this encounter Visit Diagnoses Not on filedocumented in this encounter Additional Health Concerns Assessment Noted Time PHQ-2 Depression Total Score: 0 03/01/20 25 12:46 PM EDT documented as of this encounter Care Teams Medical Sales Relationship Specialty Start Date End Date Murray Pichardo MD [address] [place] [address] mary PCP - General Internal Medicine 05/29/21 Murray Pichardo MD [address] [place] [address] mary Historical LMR Provider 06/29/17 Michael Souza MD [address] [place] [address] Ophthalmology 09/21/20 documented as of this encounter Additional Source Comments The information contained in this document represents components of the legal health record. It is not the complete legal health record.[facility]
--- OUTSIDE RECORDS SUMMARY | 2025-07-29 08:06 | XMS_ITS | Clinical Summary ---
Author Organization [facility] Address [address] [place] [address] Care Team Providers Care Child And Youth Program Assistant Name Role Phone Pcp, No Primary Care Provider Unavailabl e Social History Tobacco Use Types Packs/Day Years Used Date Smoking Tobacco: Never Assessed Sex and Gender Information Value Date Recorded Sex Assigned at Not on file Legal Sex Male 6:13 PM EST Gender Identity Not on file Sexual Orientation Not on file Plan of Treatment Health Maintenance Due Date Last Done Comments Advance Care Planning 1955 Hepatitis C Virus Screening 1955 DTaP/Tdap/Td Vaccines (1 - Tdap) 1973 Pneumococcal Vaccines 50+ (1 of 2 - PCV) 1973 Hepatitis B Vaccines (1 of 3 - Risk Dialysis 4-dose series) 1974 Colonoscopy 1999 Zoster (Shingles) Vaccine (1 of 2) 2004 Influenza Vaccine 04/09/2025 06/09/2020, , 09/25/2018, Additional history exists COVID-19 Vaccine (5 - 2024-2 6 season) 2025 12/13/2021, 03/23/2021, 11/09/2020, Additional history exists RSV Vaccine 50 years and old er and Patients (1 - 1-dose 75+ series) 2029 Hemoglobin A1C Discontinued 10/24/2018 Insurance MEDICARE PART A & B MEDICAID OUT OF STATE [facility] Member Subscriber Plan / Payer (Ef fective 2018-Present) Name:Aldo Olivarez Relation to Subscriber:Self Name:Aldo Olivarez Payer ID:Not on file Group ID:Not on file Type:Not on file Address: [facility] [address] MEDICARE Care Teams Child And Youth Program Assistant Relationship Specialty Start Date End Date Pcp, [place] [address] [place] [address] PCP - General 06/09/19
--- OUTSIDE RECORDS SUMMARY | 2025-07-29 08:06 | XMS_ITS | Clinical Summary ---
Author Organization [facility] Address [address] [place] [phone] Phone Care Team Providers Care Cell Preparer Name Role Phone Murray Pichardo MD Primary Care Provider [phone] Allergies Active Allergy Reactions Criticality Noted Date Comments Coconut (Cocos Nucifera) Swelling 11/17/2020 Coconut Fatty Acid Other (see comments) 018 Meclocycline Itching 11/17/2020 Other 12/27/2016 Gardner nuts Gardner nuts Peanut (Diagnostic) 12/27/2016 Gardner nuts Medications ProAir HFA 108 (90 Base) MCG/ACT inhaler TAKE 2 PUFFS BY MOUTH EVERY 4 HOURS NEEDED 11/07/2020 Active atorvastatin (LIPITOR) 20 MG tablet Take 20 mg by mouth 1 (one) time each day 10/10/2020 Active fluticasone HFA (Flovent HFA) 110 MCG/ACT inhaler 2 puffs twice a day 10/22/2017 Active Serevent Diskus 50 MCG/DOSE diskus inhaler INHALE 1 PUFF TWICE DAILY 10/10/2020 Active Spiriva HandiHaler 18 MCG per inhalation capsule INHALE 1 CAPSULE INTO LUNGS BY MOUTH DAILY 10/16/2020 Active OneTouch Verio test strip USE DIRECTED TO TEST BLOOD SUGAR TWICE DAILY 02/06/2021 Active albuterol HFA (PROVENTIL HFA;VENTOLIN HFA) 108 (90 Base) MCG/ACT inhaler Inhale 2 puffs 05/26/2021 Active levothyroxine (SYNTHROID, LEVOTHROID) 112 MCG tablet Take 112 mcg by mouth 07/07/2022 Active pantoprazole (PROTONIX) 40 MG EC tablet Take 1 tablet by mouth 1 (one) time each day 12/18/2021 Active Fexofenadine HCl (MUCINEX ALLERGY PO) Take by mouth daily Active magnesium oxide 400 (240 Mg) MG tabletIndicatio ns:Other bed bug exterminator current drug therapy Take 1 tablet by mouth in the morning and 1 tablet in the evening. 180 tablet 3 06/10/2024 Active tacrolimus (PROGRAF) 1 MG capsuleIndicati ons:Kidney replaced by transplant TAKE TWO CAPSULES BY MOUTH EVERY MORNING AND EVERY EVENING 360 capsule 11 11/19/2024 Active NIFEdipine CC (ADALAT CC) 60 MG 24 hr tablet TAKE ONE TABLET BY MOUTH TWO TIMES A DAY 180 tablet 11 11/19/2024 Active nebivolol (BYSTOLIC) 5 MG tabletIndicatio ns:Hypertensive disorder TAKE ONE TABLET BY MOUTH ONCE DAILY 90 tablet 3 11/19/2024 Active cyclobenzaprine (FLEXERIL) 5 MG tablet Take 1 tablet (5 mg total) by mouth 3 (three) times a day if needed for muscle spasms for up to 21 days 30 tablet 2 02/26/2025 Active doxazosin (CARDURA) 4 MG tablet TAKE 1 TABLET (4 MG TOTAL) BY MOUTH AT BED TIME 90 tablet 3 05/13/2025 Active Active Problems Problem Noted Date Diagnosed Date Stenosis of bilateral carotid arteries 4 Overview (04/07/2025): 04/14/24 Carotid US ordered by Dr. Slater- done right mod hemodynamically significant stenosis of right prox internal carotid corresponding to 50-79% stenosis. Also with extensive calcific plaque lower visualized portaion of common carotid atery- minimal left non hemodynamically significant stenosis Cough 03/26/2023 Herpes zoster 10/10/2022 Chronic kidney [...] Encounters Date Type Department Care Team Description 05/13/2025 Refill [facility] [address] [place] [address] Greg Cesar MD 05/03/2025 9:15 AM EDT Office Visit [facility] [address] [facility] [address] [place] [address] Greg Cesar MD Kidney transplant status (Primary Dx) from Last 3 Months Immunizations [...] Sign Reading Time Taken Comments Blood Pressure 130/59 05/03/2025 9:06 AM EDT Pulse 81 05/03/2025 9:06 AM EDT Temperature 36.7 C (98 F) 04/14/2019 12:00 PM EDT Respiratory Rate 14 04/14/2019 12:00 PM EDT Oxygen Saturation 97% 05/03/2025 9:06 AM EDT Inhaled Oxygen Concentration - - Weight 89.4 kg (197 lb 3.2 oz) 05/03/2025 9:06 A M EDT Height 180.3 cm (5' 11 ) 03/26/2023 8:50 AM EDT Body Mass Index 27.5 03/26/2023 8:50 AM EDT Plan of Treatment Upcoming Encounters Date Type Department Care Team (Late st Contact Info) Description 08/04/2025 9:15 AM EST Office Visit [facility] [address] [address] Miles Morton MD [address] [address] Health Maintenance Due Date Last Done Comments Diabetes: Ophthalmology Exam 10/07/2020 Diabetes: Pedal Pulse Checked 10/07/2020 Diabetes: Sensory Foot Exam 10/07/2020 Diabetes: Visual Foot Exam 10/07/2020 Colonoscopy (Post-Transplant Patient) 11/17/2020 Diabetes: Hemoglobin A1C 01/06/2023 023, 04/04/2022, 08/31/2021, Additional history exists Influenza Vaccine (#1) 2025 4, 05/22/2022, 06/23/2021, Additional history exists Hepatitis B Vaccine Aged Out 02/15/2012 No longe r eligible based on patient's age to complete this topic Pneumococcal Vaccine: 50+ Years Completed 08/22/2019, 11/19/2017, 05/10/2017, Additional history exists Pneumococcal Vaccine: Peds (0 to 5 Years) and At-Risk Patients (6 to 49 Years) Discontinued 08/22/2019, 11/19/2017, 05/10/2017, Additional history exists Procedures Procedure Name Priority Date/Time Associated Diagnosis Comments HEMOGLOBIN A1C Routine 10/08/2022 8:16 AM EST Kidney replaced by transplant from Last 3 Months or Most Recently Relevant to Health Maintenance Results * Hemoglobin A1c (10/08/2022 8:16 AM EST) Hemoglobin A1C 4.8 (4.0-5.6) % [facility] Comment: MONITORING: In known diabetic patients, hemoglobin A1c targets should be discussed with health care provider. DIAGNOSTIC USE: The [place] [employer] (ADA) and the World Health [...] Supplement 1 Testing performed or reported by [facility], a Service of [facility], [address] [place] [address] Valeria Faulkner MD, Film Color Tester CLIA# [id number] Blood specimen (specimen) Venous blood / Unknown 10/08/2022 8:16 AM EST 10/08/2022 8:30 AM EST us Mary Lou Marks MD LAB BLOOD ORDERABLES Final Resu lt FLORES from Last 3 Months or Most Recently Relevant to Health Maintenance Insurance Medicare Medicare Care Teams Cell Preparer Relationship Specialty Start Date End Date Murray Pichardo MD [address] [place] [address] PCP - General 07/14/19
--- OUTSIDE RECORDS SUMMARY | 2025-07-29 08:06 | XMS_ITS | Encounter Summary ---
Author Organization [facility] Address [address] [place] [address] Phone Care Team Providers Care Senior Planning Manager Name Role Phone Murray Pichardo MD Unavailable [phone] Theresa Barrow MD Unavailable Murray Pichardo MD Unavailable Ken Cardona MD Unavailable Kristie Foster NP Unavailable [phone] Bello Katz MD Unavailable [phone] Murray Pichardo MD Primary Care Provider Michael Souza MD Unavailable Murray Pichardo MD Primary Care Provider Encounter Details Date Type Department Care Team (Latest Contact Info) Description 10/24/2017 Transcribe Orders [facility] [place] [address] [place], [place] [id number] Murray Pichardo MD [address] [place], [place] [id number] [email or web address] DM type 2 causing ESRD (Primary Dx); Pure hypercholesterolemia; Anemia in end-stage renal disease; Encounter for extracorporeal dialysis Social History Tobacco Use Types Packs/Day Years [...] Description 08/20/2025 8:00 AM EST Office Visit [facility] Internal Medicine [address] [place] [address] Murray Pichardo MD [address] [place] [address] [email or web address] documented as of this encounter Results * (ABNORMAL) Lipid panel (10/24/2017 8:58 AM EST) HDL 51 mg/dL [facility] Comment: Interpretation: Risk Level Males Decreased >45 mg/dL Average 40-45 mg/dL Increased <40 mg/dL CHOLESTEROL 123 0 - 240 mg/dL [facility] TRIGLYCERIDES 87 30 - 160 mg/dL [facility] LDL 55 50 - 129 mg/dL [facility] Comment: LDL levels in terms of risk for coronary heart disease: <100 mg/dL: Optimal 100-129 mg/dL: Near or above optimal 130-159 mg/dL: Borderline high 160-189 mg/dL: High >190 mg/dL: Very High CARDIAC RISK RATIO 2.4(L) 3.4 - 5.0 C [facility] Blood 10/24/2017 8:58 AM EST 10/24/2017 9:04 AM EST us Murray Pichardo MD LAB BLOOD BKR ORDERABLES Nica lazo Result [facility] [address] [place] [address] * (ABNORMAL) CBC (10/24/2017 8:58 AM EST) WBC 7.03 3.40 - 11.20 K/uL [facility] RBC 3.49(L) 4.50 - 5.50 M/uL [facility] HGB 10.7(L) 13.0 - 17.0 g/dL [facility] HCT 33.1(L) 40.0 - 51.0 % [facility] PLT 345 130 - 400 K/uL [facility] MCV 94.8 79.0 - 98.0 fL [facility] MCH 30.7 27.0 - 34.8 pg [facility] MCHC 32.3 31.5 - 36.0 g/dL [facility] RDW 17.7(H) 10.8 - 14.6 % [facility] MPV 9.0(L) 9.4 - 12.4 fl [facility] NRBC 0.00 /100 WBCs [facility] ABSOLUTE NRBC 0.00 K/uL [facility] Blood 10/24/2017 8:58 AM EST 10/24/2017 9:04 AM EST us Murray Pichardo MD LAB BLOOD BKR ORDERABLES Nica lazo Result [facility] [address] [place], [place] [phone] * (ABNORMAL) Comprehensive metabolic panel (10/24/2017 8:58 AM EST) SODIUM 137 133 - 146 mmol/L [facility] POTASSIUM 3.9 3.3 - 5.1 mmol/L [facility] CHLORIDE 93(L) 96 - 108 mmol/L [facility] CO2 29 21 - 35 mmol/L [facility] BUN 20(H) 6 - 19 mg/dL [facility] CREATININE 5.90(H) 0.5 - 1.5 mg/dL [facility] GLUCOSE 95 70 - 99 mg/dL [facility] ALBUMIN 2.8(L) 3.9 - 4.8 g/dL [facility] TOTAL PROTEIN 6.1(L) 6.5 - 8.0 g/dL [facility] CALCIUM 7.9(L) 8.4 - 10.3 mg/dL [facility] ALKALINE PHOSPHATASE 60 39 - 117 U/L [facility] TOTAL BILIRUBIN 0.3 0 - 1.2 mg/dL [facility] AST 12 0 - 37 U/L [facility] ALT 9 0 - 40 U/L [facility] GLOBULIN 3.3 1 - 4.8 g/dL [facility] EGFR 10(L) 60 - 1,000 mL/min/1.7 3m2 [facility] Comment:Abnormal if <60. If patient is -[place], multiply the result by 1.21. ANION GAP 19 10 - 20 mmol/L [facility] Blood 10/24/2017 8:58 AM EST 10/24/2017 9:04 AM EST us Murray Pichardo MD LAB BLOOD BKR ORDERABLES Nica l Result Performing Organization Address [facility] Co de Phone Number [address] [address] * (ABNORMAL) Hemoglobin A1c (10/24/2017 8:58 AM EST) HEMOGLOBIN A1C 6.2(H) 4.3 - 5.8 % [facility] Blood 10/24/2017 8:58 AM EST 10/24/2017 9:04 AM EST us Murray Pichardo MD LAB BLOOD BKR ORDERABLES Nica l Result Performing Organization Address [facility] Co de Phone Number [address] [address] * TSH (10/24/2017 8:58 AM EST) TSH 2.55 0.27 - 4.20 uIU/mL [facility] Blood 10/24/2017 8:58 AM EST 10/24/2017 9:04 AM EST us Murray Pichardo MD LAB BLOOD BKR ORDERABLES Nica l Result Performing Organization Address City/[facility]/ZIP Co de Phone Number [address] [address] documented in this encounter Visit Diagnoses Diagnosis DM type 2 causing ESRD- Primary Pure hypercholesterolemia Anemia in end-stage renal disease Anemia in chronic kidney disease Encounter for extracorporeal dialysis documented in this encounter Additional Health Concerns Assessment Noted Time PHQ-2 Depression Total Score: 0 08/19/20 3:53 PM EST documented as of this encounter Care Teams Senior Planning Manager Relationship Specialty Start Date End Date Murray Pichardo MD [address] [place] [address] PCP - General Internal Medicine 08/19/17 05/28/21 Murray Pichardo MD [address] [place] [address] PCP - General Internal Medicine 05/29/21 Murray Pichardo MD [address] [place] [address] Insurance Assigned Provider 06/15/17 09/17/20 Theresa Barrow MD [address] [place] [address] Historical LMR Provider 06/29/17 2 Murray Pichardo MD [address] [place] [address] Historical LMR Provider 06/29/17 Ken Cardona MD [address] [place] [address] Historical LMR Provider 06/29/17 09/16/21 Kristie Foster NP 26 [facility] 6 [place] [address] [email or web address] Historical LMR Provider 06/29/17 09/16/21 Bello Katz MD [address] [address] [email or web address] Historical LMR Provider 06/29/17 09/16/21 Michael Souza MD [address] [place] [address] Ophthalmology 09/21/20 documented as of this encounter Additional Source Comments The information contained in this document represents components of the legal health record. It is not the complete legal health record.[facility]
[2025-07-29 10:15] LABS: MANUAL DIFF FLAG NO
[2025-07-29 10:24] LABS: Hematocrit 38.7 % (42.0-52.0); Hemoglobin 12.9 g/dl (14.0-18.0); Imm Gran Abs Auto 0.01 X10*3/uL (0.00-0.03); Imm Gran Pct Auto 0.2 % (0.0-0.4); Lymphocytes Absolute Auto 2.3 X10*3/uL (1.2-4.9); Mean Corpuscular HGB Conc 33.3 g/dl (31.0-36.0); Mean Corpuscular Hemoglobin 32.1 pg (27.0-33.0); Mean Corpuscular Volume 96.3 fL (80.0-98.0); NRBC Abs Auto 0.000 X10*3/uL (0.0-0.012); NRBC Pct Auto 0.0 /100WBC (0.0-0.2); Platelet Count 258 X10*3/uL (160-400); Red Blood Count 4.02 X10*6/uL (4.60-5.80); White Blood Count 6.0 X10*3/uL (4.8-10.8)
[2025-07-29 10:50] LABS: Anion Gap 15 (12-20); Blood Urea Nitrogen 8 mg/dL (9-16); Calcium 8.9 mg/dL (8.4-10.2); Carbon Dioxide 23 mmol/L (22-29); Chloride 103 mmol/L (96-108); Estimated Glomerular Filt Rate > 60; Potassium 3.7 mmol/L (3.3-5.1); Sodium 137 mmol/L (135-145)
[2025-07-30 15:03] LABS: Tacrolimus Prograf 8.8 mcg/L
== END 2025-07-29 07:52 | disposition home or self-care (01) ==
LOC: HO.HMGCLDS 07:51
PROVIDERS: PCP Internal Medicine; Visit Provider Internal Medicine Nephrology
DX: Z94.0 Kidney transplant status (principal)
CPT/HCPCS: 36415; 80051; 80197; 82310; 82565; 84520; 85025

== ENCOUNTER 2025-08-11 08:14 | Outpatient (REF) | payer MEDICARE, SELFPAY ==
--- OUTSIDE RECORDS SUMMARY | 2025-08-11 08:18 | XMS_ITS | Encounter Summary ---
Author Organization [facility] Address [address] [place] [address] [place] [address] Phone Care Team Providers Care Nephrologist Name Role Phone Murray Pichardo MD Unavailable [phone] Michael Souza MD Unavailable [phone] Murray Pichardo MD Primary Care Provider [phone] Encounter Details Date Type Department Care Team (Late st Contact Info) Description 08/02/2025 Orders Only [facility] [place] Internal Medicine [address] [place] [address] Provider, MD Tamiko [address] [place], [place] [id number] Social History Tobacco Use Types Packs/Day Years [...] Description 08/20/2025 8:00 AM EST Office Visit [facility] Internal Medicine [address] [place], [place] [phone] Murray Pichardo MD [address] [place] [address] mary documented as of this encounter Procedures Procedure Name Priority Date/Time Associated Diagnosis Comments OUTSIDE LAB Routine 07/29/2025 1:25 PM EST documented in this encounter Results * Outside Lab (Non-[facility]GB) (07/29/2025 1:25 PM EST) us Historical Provider LAB BLOOD BKR ORDERABLES Final Result documented in this encounter Visit Diagnoses Not on filedocumented in this encounter Additional Health Concerns Assessment Noted Time PHQ-2 Depression Total Score: 0 03/01/20 25 12:46 PM EDT documented as of this encounter Care Teams Nephrologist Relationship Specialty Start Date End Date Murray Pichardo MD [address] [place] [address] [email or web address] PCP - General Internal Medicine 05/29/21 Murray Pichardo MD [address] [place] [address] [email or web address] Historical LMR Provider 06/29/17 Michael Souza MD [address] [place] [address] Ophthalmology 09/21/20 documented as of this encounter Additional Source Comments The information contained in this document represents components of the legal health record. It is not the complete legal health record.[facility]
--- OUTSIDE RECORDS SUMMARY | 2025-08-11 08:18 | XMS_ITS | Encounter Summary ---
Author Organization [facility] Address [address] [place] [address] Phone Care Team Providers Care Multi Disciplined Language Analyst Name Role Phone Murray Pichardo MD Unavailable Theresa Barrow MD Unavailable Murray Pichardo MD Unavailable Ken Cardona MD Unavailable Kristie Foster NP Unavailable [phone] Bello Katz MD Unavailable [phone] Murray Pichardo MD Primary Care Provider [phone] Michael Souza MD Unavailable Murray Pichardo MD Primary Care Provider Encounter Details Date Type Department Care Team (Latest Contact Info) Description 05/20/2018 Transcribe Orders [facility] [place] [address] [place], [place] [phone] Murray Pichardo MD [address] [place], [place] [phone] [email or web address] Pure hypercholesterolemia (Primary Dx); Essential [...] Description 08/20/2025 8:00 AM EST Office Visit [facility] Internal Medicine [address] [place] [address] Murray Pichardo MD [address] [place] [address] [email or web address] documented as of this encounter Results * PSA (screening) (05/20/2018 11:28 AM EDT) PSA 0.94 0 - 4.00 ng/mL [facility] Blood 05/20/2018 11:2 8 AM EDT 05/20/2018 11:31 AM EDT us Murray Pichardo MD LAB BLOOD BKR ORDERABLES Nica l Result Performing Organization Address City/[facility] Co de Phone Number [address] [address] * Hemoglobin A1c (05/20/2018 11:28 AM EDT) HEMOGLOBIN A1C 5.6 4.3 - 5.8 % [facility] Blood 05/20/2018 11:2 8 AM EDT 05/20/2018 11:31 AM EDT us Murray Pichardo MD LAB BLOOD BKR ORDERABLES Nica l Result Performing Organization Address City/[facility] Co de Phone Number [address] [address] * (ABNORMAL) Comprehensive metabolic panel (05/20/2018 11:28 AM EDT) SODIUM 133 133 - 146 mmol/L [facility] POTASSIUM 4.5 3.3 - 5.1 mmol/L [facility] CHLORIDE 87(L) 96 - 108 mmol/L [facility] CO2 29 21 - 35 mmol/L [facility] BUN 27(H) 6 - 19 mg/dL [facility] CREATININE 6.30(HH) 0.5 - 1.5 mg/dL [facility] Comment: Critical Value. Results called to and read back by: maría [email or web address] [id number] [email or web address] GLUCOSE 83 70 - 99 mg/dL [facility] ALBUMIN 4.1 3.9 - 4.8 g/dL [facility] TOTAL PROTEIN 7.0 6.5 - 8.0 g/dL [facility] CALCIUM 9.7 8.4 - 10.3 mg/dL [facility] ALKALINE PHOSPHATASE 92 39 - 117 U/L [facility] TOTAL BILIRUBIN 0.3 0.0 - 1.2 mg/dL [facility] AST 19 0 - 37 U/L [facility] ALT 8 0 - 40 U/L [facility] GLOBULIN 2.9 1 - 4.8 g/dL [facility] EGFR 9(L) >59 mL/min/1.7 3m2 [facility] Comment:If patient is black, multiply result by 1.159. Estimated glomerular filtration rate calculated using the CKD-EPI equation. ANION GAP 22(H) 10 - 20 mmol/L [facility] Blood 05/20/2018 11:2 8 AM EDT 05/20/2018 11:31 AM EDT us Murray Pichardo MD LAB BLOOD BKR ORDERABLES Nica l Result [facility] [address] [place], [place] [phone] * (ABNORMAL) CBC (05/20/2018 11:28 AM EDT) WBC 6.32 3.40 - 11.20 K/uL [facility] RBC 4.39(L) 4.50 - 5.50 M/uL [facility] HGB 13.5 13.0 - 17.0 g/dL [facility] HCT 40.4 40.0 - 51.0 % [facility] PLT 262 130 - 400 K/uL [facility] MCV 92.0 79.0 - 98.0 fL [facility] MCH 30.8 27.0 - 34.8 pg [facility] MCHC 33.4 31.5 - 36.0 g/dL [facility] RDW 14.5 10.8 - 14.6 % [facility] MPV 9.4 9.4 - 12.4 fl [facility] NRBC 0.00 /100 WBCs [facility] ABSOLUTE NRBC 0.00 K/uL [facility] Blood 05/20/2018 11:2 8 AM EDT 05/20/2018 11:31 AM EDT Murray Pichardo MD LAB BLOOD BKR ORDERABLES Nica l Result Performing Organization Address City/[facility]/ZIP Co de Phone Number [address] [address] * (ABNORMAL) TSH (05/20/2018 11:28 AM EDT) TSH 0.18(L) 0.27 - 4.20 uIU/mL [facility] Blood 05/20/2018 11:2 8 AM EDT 05/20/2018 11:31 AM EDT Murray Pichardo MD LAB BLOOD BKR ORDERABLES Nica l Result [address] [address] * (ABNORMAL) Lipid panel (05/20/2018 11:28 AM EDT) HDL 54 mg/dL [facility] Comment: Interpretation: Risk Level Males Decreased >45 mg/dL Average 40-45 mg/dL Increased <40 mg/dL CHOLESTEROL 118 0 - 240 mg/dL [facility] TRIGLYCERIDES 87 30 - 160 mg/dL [facility] LDL 47(L) 50 - 129 mg/dL [facility] Comment: LDL levels in terms of risk for coronary heart disease: <100 mg/dL: Optimal 100-129 mg/dL: Near or above optimal 130-159 mg/dL: Borderline high 160-189 mg/dL: High >190 mg/dL: Very High CARDIAC RISK RATIO 2.2(L) 3.4 - 5.0 C [facility] Blood 05/20/2018 11:2 8 AM EDT 05/20/2018 11:31 AM EDT us Murray Pichardo MD LAB BLOOD BKR ORDERABLES Nica lazo Result [address] [address] documented in this encounter Visit Diagnoses Diagnosis [...] documented as of this encounter Care Teams Multi Disciplined Language Analyst Relationship Specialty Start Date End Date Murray Pichardo MD [address] [place] [address] [email or web address] PCP - General Internal Medicine 08/19/17 05/28/21 Murray Pichardo MD [address] [place] [address] [email or web address] PCP - General Internal Medicine 05/29/21 Murray Pichardo MD [address] [place] [address] [email or web address] Insurance Assigned Provider 06/15/17 09/17/20 Theresa Barrow MD [address] [place] [address] Historical LMR Provider 06/29/17 2 Murray Pichardo MD [address] [place] [address] Historical LMR Provider 06/29/17 Ken Cardona MD [address] [place] [address] [address] [place] [address] Historical LMR Provider 06/29/17 09/16/21 Kristie Foster NP [address] [place] [address] 6 [place] [address] Historical LMR Provider 06/29/17 09/16/21 Bello Katz MD [address] [place] [address] [email or web address] Historical LMR Provider 06/29/17 09/16/21 Michael Souza MD [address] [place] [address] Ophthalmology 09/21/20 documented as of this encounter Additional Source Comments The information contained in this document represents components of the legal health record. It is not the complete legal health record.[facility]
--- OUTSIDE RECORDS SUMMARY | 2025-08-11 08:18 | XMS_ITS | Clinical Summary ---
Author Organization Located Within [facility] Address [address] [place] [address] Phone Care Team Providers Care Consultant Technology Name Role Phone Murray Pichardo MD Unavailable [phone] Michael Souza MD Unavailable Murray Pichardo MD Primary Care Provider [phone] Allergies Active Allergy Reactions Criticality Noted Date Comments Coconut Unknown 10/25/2017 Coconut Oil 12/27/2016 Meclocycline Itching 11/17/2020 Other 12/27/2016 [place] nuts Medications lancets 28 gauge Misc bid 012 Active B complex with C#20-folic acid (NEPHROCAPS) 1 mg Cap Take 1 capsule by mouth daily as needed. Active salmeterol (SEREVENT DISKUS) 50 mcg/dose diskus inhaler Inhale 1 puff into the lungs 2 (two) times a day. Active NIFEdipine (PROCARDIA XL) 60 MG 24 hr tablet Take 60 mg by mouth 2 (two) times a day. 11 019 Active tadalafiL (CIALIS, ADCIRCA) 20 MG tablet Take 20 mg by mouth daily as needed. Active blood sugar diagnostic (ONETOUCH VERIO) Strp strips See Instructions, # 100 each, Refills 11, Tot. Refills 11, Maintenance, Check BG 2x daily, for T2DM (E11.9), 06/30/21 8:59:00 EDT, Compound, 180, cm, 06/30/21 8:13:00 EDT, Height 021 Active doxazosin (CARDURA) 4 MG tablet See Instructions, TAKE ONE TABLET BY MOUTH EVERY NIGHT AT BEDTIME, # 30 tablet, 11 Refills, [facility], 180, cm, 06/30/21 8:13:00 EDT, Height 022 Active magnesium oxide (MAG-OX) 400 mg (241.3 mg elemental) tablet Take 400 mg by mouth daily. 023 Active guaifenesin/dextrometho rphan (MUCINEX DM ORAL) Take 1 tablet by mouth 2 (two) times a day. Active nebivoloL (BYSTOLIC) 5 MG tablet Take 5 mg by mouth every morning. Active QVAR REDIHALER 40 mcg/actuation inhaler Inhale 2 puffs into the lungs 2 (two) times a day. For asthma and COPD 024 Active cyclobenzaprine (FLEXERIL) 5 MG tablet Take 5 mg by mouth 3 (three) times a day as needed. 024 Active cyanocobalamin, vitamin B-12, 1000 MCG tablet Take 1,000 mcg by mouth 3 (three) times a week on Saturday, Saturday, Saturday. Active sodium bicarbonate 650 mg tablet TAKE ONE TABLET BY MOUTH EVERY MORNING AND EVERY EVENING AND BEFORE BEDTIME 025 Active tacrolimus (PROGRAF) 1 MG capsule Take 2 mg by mouth 2 (two) times a day. 025 Active lidocaine (LIDODERM) 5 %Indications:Chronic bilateral low back pain without sciatica Place 2 patches onto the skin daily. Remove & Discard patch within 12 hours or as directed by MD 60 patch 025 Active levothyroxine (SYNTHROID, LEVOTHROID) 112 MCG tabletIndications:Acqui red hypothyroidism TAKE 1 TABLET BY MOUTH EVERY DAY IN THE MORNING 90 tablet 3 025 Active metFORMIN (GLUCOPHAGE) 500 MG tablet Take 1 tablet (500 mg total) by mouth 2 (two) times a day with meals. 90 tablet 3 025 Active Additional Information Patient taking differently:500 mg OralDaily, Reported on 06/08/2025 albuterol 90 mcg/actuation inhalerIndications:Mode rate persistent asthma, unspecified whether complicated INHALE 2 PUFFS INTO THE LUNGS EVERY 6 HOURS NEEDED FOR WHEEZING 17 g 2 025 Active pantoprazole (PROTONIX) 40 MG tablet TAKE 1 TABLET BY MOUTH EVERY DAY 90 tablet 3 025 Active atorvastatin (LIPITOR) 20 MG tabletIndications:Pure hypercholesterolemia TAKE 1 TABLET BY MOUTH EVERY DAY 90 tablet 3 025 Active Active Problems Problem Noted Date Diagnosed Date Atrial fibrillation 06/08/2025 Assessment & Plan (06/08/2025 12:38 PM EDT): Patient with new onset atrial fibrillation as seen on EKG without RVR. Patient is asymptomatic. He has no history of atrial fibrillation. Given this, would recommend patient follow-up with cardiology for further assessment. [id number] score of 3 (age, hypertension history, and diabetes history)., will likely need to be on anticoagulation. Given this finding, will have my RN team reach out to [facility] cardiology to schedule a preop appointment as well as consultation regarding the atrial fibrillation. Patient scheduled with [facility] cardiology on 06/16/2025. Will obtain an echocardiogram to make sure there is no underlying thrombus. Bilateral carotid artery stenosis 05/13/2024 Overview (05/13/2024): 04/14/24 Carotid US ordered by Dr. Slater- done right mod hemodynamically significant stenosis of right prox internal carotid corresponding to 50-79% stenosis. Also with extensive calcific plaque lower visualized portaion of common carotid atery- minimal left non hemodynamically significant stenosis Assessment & Plan (06/08/2025 12:38 PM EDT): Patient presenting today for a carotid endarterectomy which is scheduled for 07/06/2025. Ultimately, patient's chronic medical conditions are well-managed, although new onset atrial fibrillation noted on EKG today. Given this new finding, would recommend on holding off on the carotid endarterectomy until he is cleared by cardiology, with an appointment scheduled on 06/16/2025. In the meantime, we will obtain an echocardiogram to assess for an underlying thrombus and we will also obtain a CBC. RCRI: low risk ACP: Intermediate risk EMAPO: Very high risk VSG-CRI: Low risk AUB-HAS2: Intermediate risk End-stage renal failure with renal transplant Acquired hypothyroidism 08/19/2017 Asthma 08/19/2017 Type 2 diabetes mellitus 08/19/2017 Hypothyroidism 08/19/2017 Left bundle branch block 08/19/2017 Diabetes mellitus with end-stage renal disease 1 10/20/2016 Pure hypercholesterolemia 08/19/2017 Hyperlipidemia 08/19/2017 Renal failure 08/19/2017 Carpal tunnel syndrome of right wrist 12/27/2016 Essential hypertension 12/27/2016 Resolved Problems Problem Noted Date Diagnosed Date Resolved Date End stage renal failure on dialysis 08/19/2017 10/31/2018 Dependence on renal dialysis 08/19/2017 02/25/2023 Encounters Date Type Department Care Team Description 08/02/2025 Orders Only [facility] Internal Medicine [address] [facility] [place] [address] Tamiko Meléndez MD 07/30/2025 Orders Only [facility] Internal Medicine [address] [facility] [place] [address] ProviderTamiko MD 06/15/2025 Telephone [facility] Internal Medicine [address] [facility] [place] [address] Murray Pichardo MD Prior Auth for Echo 06/14/2025 Refill [facility] Medicine [address] [facility] [place] [address] Murray Pichardo MD Medication Refill 06/08/2025 12:06 PM EDT - 06/08/2025 11:59 PM EDT Hospital Encounter [facility] [place] [address] [facility] [place] [address] Cecille Jimenez PA-C Discharge Disposition: Home or Self Care 06/08/2025 11:20 AM EDT Office Visit [facility] Internal [facility] [address] [facility] [place] [address] Cecille Jimenez PA-C Bilateral carotid artery stenosis (Primary Dx); Abnormal electrocardiogram (ECG) (EKG); Atrial fibrillation, unspecified type 06/08/2025 Telephone [facility] Internal Medicine [address] [facility] [place] [address] Murray Pichardo MD Cardiology Appointment 05/20/2025 Refill [facility] Internal [facility] [address] [facility] [place] [address] Murray Pichardo MD Medication Refill 05/19/2025 Telephone [facility] Internal Medicine [address] [facility] [place] [address] Murray Pichardo MD Pre-op Exam from Last 3 Months Immunizations Immunization Administration Dates Next Due Hepatitis B, unspecified formulation 02/15/2012 INFLUENZA, SPLIT VIRUS, TRIV ALENT W/ PRESERVATIVE IM 09/25/2018,07/10/2012 Influenza High-Dose Quadriva lent Preservative Free IM 05/22/2022 Influenza High-Dose Trivalen t Preservative Free IM 09/09/2017 Influenza Nasal, Unspecified Formulation 022 Influenza Quadrivalent Adjuv anted Preservative Free IM 06/23/2021 Influenza Quadrivalent Preservative Free IM 09/2019 Influenza Trivalent Adjuvant ed Preservative free IM 05/26/2024 Influenza, Unspecified Formulation 08/22/2019,,11/19/2017 Pneumococcal conjugate PCV13 11/19/2017,05/10/20 17 Pneumococcal polysaccharide PPSV23 08/22/2019,,08/14/2006 RSV Vaccine (bivalent) 05/30/2023 Td (adult) 5 Lf Tetanus Toxo id, PF, Adsorbed 11/08/2007 Tdap 11/19/2017 Zoster live 06/12/2014 Zoster recombinant 08/12/2020,06/09/2020 Family History Medical History Relation Comments Cancer Father Heart attack Father Brain cancer Mother Relation Status Comments Father (Age 86) at 84 y/o d/t heart attack Mother (Age 72) at 72 y/o d/t breast cancer that metastisized Social History Tobacco Use Types Packs/Day Years Used Date Smoking Tobacco: Never Smokeless Tobacco: Never Tobacco Cessation:Counseling Given: Not Answered Alcohol Use Standard Drinks/Week Comments Yes 0 [...] on file Sexual Orientation Not on file Last Filed Vital Signs Vital Sign Reading Time Taken Comments Blood Pressure 126/70 06/08/2025 11:06 AM EDT Pulse 83 06/08/2025 11:06 AM EDT Temperature 36.1 C (97 F) 06/08/2025 11:06 AM EDT Respiratory Rate 18 06/08/2025 11:06 AM EDT Oxygen Saturation 98% 06/08/2025 11:06 AM EDT Inhaled Oxygen Concentration - - Weight 89.4 kg (197 lb) 06/08/2025 11:06 AM EDT Height 171.3 cm (5' 7.44 ) 06/08/2025 11:06 AM E DT Body Mass Index 30.45 06/08/2025 11:06 AM EDT Plan of Treatment Upcoming Encounters Date Type Department Care Team (Late st Contact Info) Description 08/20/2025 8:00 AM EST Office Visit [facility] Internal Medicine [address] [facility] [place] [address] Murray Pichardo MD [address] [place] [address] [email or web address] Due Date Last Done Comments COLOGUARD 1999 FIT TEST 1999 FOBT 1999 SIGMOIDOSCOPY 1999 VIRTUAL COLONOSCOPY 1999 DIABETIC EYE EXAM 08/19/2017 INFLUENZA VACCINE (#1) 2025 , 05/22/2022, 06/23/2021, Additional history exists COVID-19 VACCINE (2024- season) 2025 05/26/2024, 05/30/2023, 05/22/2022, Additional history exists HEMOGLOBIN A1C 07/14/2025 01/11/2025, 06/09, 02/27/2024, Additional history exists BLOOD PRESSURE 12/06/2025 06/08/2025 DEPRESSION SCREENING 03/01/2026 03/01/2025 LIPID PANEL 03/01/2026 03/01/2025, 02/08, 02/22/2023, Additional history exists TSH LEVEL 03/01/2026 03/01/2025, 02/08, 02/22/2023, Additional history exists CREATININE LEVEL 03/05/2026 03/05/2025, , 01/11/2025, Additional history exists COLONOSCOPY 02/13/2027 11/17/2024 COLORECTAL CANCER SCREENING 02/13/2027 Adult Td,Tdap Booster 11/20/2027 11/19/2017, 008 HEPATITIS C SCREENING Completed 05/27/2018 PNEUMOCOCCAL VACCINES (50+ years) Completed 08/22/2019, 11/19/2017, 05/10/2017, Additional history exists ZOSTER VACCINES Completed 08/12/2020, 09/2019, 06/12/2014 RSV VACCINE Completed 05/30/2023 SMOKING STATUS SCREENING (Once After 26 Yrs) Completed 06/08/2025 HEPATITIS A VACCINES Aged Out No long er eligible based on patient's age to complete this topic HIB VACCINES Aged Out No longer eligi ble based on patient's age to complete this topic MENINGOCOCCAL VACCINES (ACWY) Aged Out No longer eligible based on patient's age to complete this topic MENINGOCOCCAL VACCINES (B) Aged Out N o longer eligible based on patient's age to complete this topic Medical Devices Not on file Procedures Procedure Name Priority Date/Time Associated Diagnosis Comments OUTSIDE LAB Routine 07/29/2025 2:31 PM EST OUTSIDE LAB Routine 07/29/2025 1:25 PM EST CBC AND DIFFERENTIAL Routine 06/08/2025 12:06 PM EDT Bilateral carotid artery stenosis BASIC METABOLIC PANEL (BMP) Routine 03/05/2025 9:28 AM EDT Hyponatremia LIPID PANEL Routine 03/01/2025 10:59 AM EDT Pure hypercholesterolemia TSH WITH REFLEX Routine 03/01/2025 10:59 AM EDT Acquired hypothyroidism OUTSIDE HEMOGLOBIN A1C Routine 01/11/2025 HM COLONOSCOPY FOR RESULT ENTRY ONLY Routine 11/17/2024 9:49 AM EDT from Last 3 Months or Most Recently Relevant to Health Maintenance Results * Outside Lab (Non-MGB) (07/29/2025 2:31 PM EST) Only the most recent of2 resultswithin the time period is included. us Historical Provider LAB BLOOD BKR ORDERABLES Final Result * (ABNORMAL) CBC and differential (06/08/2025 12:06 PM EDT) WBC 6.32 4.00 - 11.00 K/uL [facility] RBC 4.19(L) 4.50 - 5.90 M/uL [facility] HGB 13.6 13.5 - 17.5 g/dL [facility] HCT 40.0(L) 41.0 - 53.0 % [facility] PLT 217 150 - 450 K/uL [facility] MCV 95.5 80.0 - 100.0 fL [facility] MCH 32.5(H) 27.0 - 31.0 pg [facility] 34.[facility] 32.0 - 36.0 g/dL [facility] RDW 14.2 11.5 - 14.5 % [facility] MPV 9.3 8.4 - 12.0 fL [facility] NRBC 0.00 0.00 /100 WBCs [facility] ABSOLUTE NRBC 0.00 0.00 K/uL [facility] DIFF METHOD Auto [facility] NEUTS 64.9 48.0 - 76.0 % [facility] LYMPHS 22.8 18.0 - 41.0 % [facility] MONOS 9.8 4.0 - 11.0 % [facility] EOS 1.4 0.0 - 5.0 % [facility] BASOS 0.6 0.0 - 1.5 % [facility] Granulocytes, immature (%) 0.5 0.0 - 0.9 % [facility] ABSOLUTE NEUTS 4.10 1.92 - 7.60 K/uL [facility] ABSOLUTE LYMPHS 1.44 0.72 - 4.10 K/uL [facility] ABSOLUTE MONOS 0.62 0.16 - 1.10 K/uL [facility] ABSOLUTE EOS 0.09 0.00 - 0.50 K/uL [facility] ABSOLUTE BASOS 0.04 0.00 - 0.15 K/uL [facility] Granulocytes, immature 0.03 0.00 - 0.09 K/uL [facility] Blood 06/08/2025 12:0 6 PM EDT 06/08/2025 12:09 PM EDT us Cecille Jimenez PA-C LAB BLOOD BKR ORDERABLES Fin al Result [facility] [address] [place] [address] * (ABNORMAL) Basic metabolic panel (03/05/2025 9:28 AM EDT) SODIUM 132(L) 133 - 146 mmol/L [facility] CHLORIDE 94(L) 96 - 108 mmol/L [facility] POTASSIUM 4.3 3.3 - 5.1 mmol/L [facility] CO2 23 21 - 35 mmol/L [facility] BUN 12 6 - 19 mg/dL [facility] CREATININE 1.00 0.5 - 1.5 mg/dL [facility] GLUCOSE 147(H) 70 - 99 mg/dL [facility] CALCIUM 9.7 8.4 - 10.3 mg/dL [facility] EGFR 81 >59 mL/min/1.7 3m2 [facility] Comment:Estimated glomerular filtration rate calculated using the CKD-EPI refit equation. ANION GAP 19 10 - 20 mmol/L [facility] Blood 03/05/2025 9:28 AM EDT 03/05/2025 9:30 AM EDT Murray Pichardo MD LAB BLOOD BKR ORDERABLES Nica l Result Performing Organization Address [facility] Co de Phone Number [address] [address] * TSH with reflex (03/01/2025 10:59 AM EDT) TSH 3.87 0.27 - 4.20 uIU/mL [facility] Blood 03/01/2025 10:5 9 AM EDT 03/01/2025 11:04 AM EDT us Murray Pichardo MD LAB BLOOD BKR ORDERABLES Nica l Result Performing Organization Address City/[facility]/ZIP Co de Phone Number [address] [address] * (ABNORMAL) Lipid panel (03/01/2025 10:59 AM EDT) HDL 81 mg/dL [facility] Comment: Interpretation <40 mg/dL: Low HDL cholesterol (major risk factor for CHD) Greater than or equal to 60 mg/dL: High HDL cholesterol ( negative risk factor for CHD) HDL - cholesterol is affected by a number of factors, e.g. smoking, excerise, hormones, sex and age. CHOLESTEROL 133 0 - 240 mg/dL [facility] TRIGLYCERIDES 82 30 - 160 mg/dL [facility] LDL 36(L) 50 - 129 mg/dL [facility] Comment: LDL levels in terms of risk for coronary heart disease: <100 mg/dL: Optimal 100-129 mg/dL: Near or above optimal 130-159 mg/dL: Borderline high 160-189 mg/dL: High >190 mg/dL: Very High CARDIAC RISK RATIO 1.6(L) 3.4 - 5.0 C [facility] Blood 03/01/2025 10:5 9 AM EDT 03/01/2025 11:05 AM EDT Murray Pichardo MD LAB BLOOD BKR ORDERABLES Nica l Result [facility] [address] [place] [address] * Outside HbA1c (01/11/2025) Hemoglobin A1c - External 5.5 % Historical Provider LAB BLOOD ORDERABLES Nica l Result * COLONOSCOPY FOR RESULT ENTRY ONLY (11/17/2024 9:49 AM EDT) Historical Provider HEALTH MAINTENANCE Final Result from Last 3 Months or Most Recently Relevant to Health Maintenance Insurance [employer] SAF[employer] NET PARTIAL Member Subscriber Plan / Payer (Ef fective 2018-Present) Name:Aldo Olivarez Relation to Subscriber:Self Name:Aldo Olivarez Payer ID:Not on file Group ID:Not on file Type:Medicaid Address: [facility], [address] MEDICARE REPLACEMENT Member Subscriber Plan / Payer (Ef fective 2018-Present) Name:Aldo Olivarez Relation to Subscriber:Self Name:Aldo Olivarez Payer ID:Not on file Group ID:Not on file Type:Medicaid Address: [address] MEDICARE REPLACEMENT [facility] SAFETY NET PARTIAL Member Subscriber Plan / Payer (Ef fective 2018-Present) Name:Aldo Olivarez Relation to Subscriber:Self Name:Aldo Olivarez Payer ID:Not on file Group ID:Not on file Type:Medicaid Address: [address] MEDICARE REPLACEMENT Member Subscriber Plan / Payer (Ef fective 2018-Present) Name:Aldo Olivarez Relation to Subscriber:Self Name:Aldo Olivarez Payer ID:Not on file Group ID:Not on file Type:Medicaid Address: [address] MEDICARE REPLACEMENT HEALTH SAFETY NET PARTIAL Member Subscriber Plan / Payer (Ef fective 2018-Present) Name:Aldo Olivarez Relation to Subscriber:Self Name:Aldo Olivarez Payer ID:Not on file Group ID:Not on file Type:Medicaid Address: [address] MEDICARE REPLACEMENT HEALTH SAFETY NET PARTIAL Member Subscriber Plan / Payer (Ef fective 2018-) Name:Aldo Olivarez Relation to Subscriber:Self Name:Aldo Olivarez Payer ID:Not on file Group ID:Not on file Type:Medicaid Address: [address] MEDICARE REPLACEMENT HEALTH SAFETY NET PARTIAL Member Subscriber Plan / Payer (Ef fective 2018-Present) Name:Aldo Olivarez Relation to Subscriber:Self Name:Aldo Olivarez Payer ID:Not on file Group ID:Not on file Type:Medicaid Address: [address] MEDICARE REPLACEMENT [employer] SAFETY NET PARTIAL Member Subscriber Plan / Payer (Ef fective 2018-Present) Name:Aldo Olivarez Relation to Subscriber:Self Name:Aldo Olivarez Payer ID:Not on file Group ID:Not on file Type:Medicaid Address: [address] MEDICARE REPLACEMENT [employer] SAFETY NET PARTIAL AAR MEDICARE REPLACEMENT Care Teams Consultant Technology Relationship Specialty Start Date End Date Murray Pichardo MD [address] [place] [address] [email or web address] PCP - General Internal Medicine 05/29/21 Murray Pichardo MD [address] [place] [address] [email or web address] Historical LMR Provider 06/29/17 Michael Souza MD [address] [place] [address] Ophthalmology 09/21/20 Additional Source Comments The information contained in this document represents components of the legal health record. It is not the complete legal health record.Located Within [facility]
--- OUTSIDE RECORDS SUMMARY | 2025-08-11 08:18 | XMS_ITS | Encounter Summary ---
Author Organization [facility] Address [address] [place] [address] [place] [address] Phone Care Team Providers Care Fruit Culler Name Role Phone Murray Pichardo MD Unavailable [phone] Michael Souza MD Unavailable [phone] Murray Pichardo MD Primary Care Provider Encounter Details Date Type Department Care Team (Late st Contact Info) Description 07/30/2025 Orders Only [facility] [place] Internal Medicine [address] [place] [address] Provider, MD Tamiko [address] [place], [place] [id number] Social History Tobacco Use Types Packs/Day Years [...] Description 08/20/2025 8:00 AM EST Office Visit [facility] Internal Medicine [address] [place], [place] [phone] Murray Pichardo MD [address] [place] [address] mary documented as of this encounter Procedures Procedure Name Priority Date/Time Associated Diagnosis Comments OUTSIDE LAB Routine 07/29/2025 2:31 PM EST documented in this encounter Results * Outside Lab (Non-MGB) (07/29/2025 2:31 PM EST) us Historical Provider LAB BLOOD BKR ORDERABLES Final Result documented in this encounter Visit Diagnoses Not on filedocumented in this encounter Additional Health Concerns Assessment Noted Time PHQ-2 Depression Total Score: 0 03/01/20 25 12:46 PM EDT documented as of this encounter Care Teams Fruit Culler Relationship Specialty Start Date End Date Murray Pichardo MD [address] [place] [address] [email or web address] PCP - General Internal Medicine 05/29/21 Murray Pichardo MD [address] [place] [address] [email or web address] Historical LMR Provider 06/29/17 Michael Souza MD [address] [place] [address] Ophthalmology 09/21/20 documented as of this encounter Additional Source Comments The information contained in this document represents components of the legal health record. It is not the complete legal health record.[facility]
--- OUTSIDE RECORDS SUMMARY | 2025-08-11 08:18 | XMS_ITS | Encounter Summary ---
Author Organization [facility] Address [address] [place] [address] Phone Care Team Providers Care Podiatric Physician Name Role Phone Murray Pichardo MD Unavailable [phone] Michael Souza MD Unavailable [phone] Murray Pichardo MD Primary Care Provider Reason for Visit * Reason Onset Date Comments Pre-op Exam 05/19/2025 Encounter Details Date Type Department Care Team (Late st Contact Info) Description 05/19/2025 Telephone [employer] [facility] Internal Medicine [address] [place], [place] [phone] Murray Pichardo MD [address] [place] [address] [email or web address] Pre-op Exam Social History [...] Surgery Type: carotid endarterectomy Location of Procedure: [facility] Is EKG needed:YES/NO: yes Is Lab Work needed:YES/NO: yes - see request in media Procedure Date: 07/06 Name of Surgeon (First, Last): Dr Michele Name of person to contact with Pre-op info, including contact number: Siobhan [phone] Confirm you have informed the patient that the Pre-op Paperwork must be faxed to the office before the appt.:yes or no or NA: Yes [facility] Call [facility] CSS Agent (Please do not reply to this user, as this inbox is not monitored.) Thank you documented in this encounter Plan of Treatment Upcoming Encounters Date Type Department Care Team (Late st Contact Info) Description 08/20/2025 8:00 AM EST Office Visit [facility] Internal Medicine [address] [place] [address] Murray Pichardo MD [address] [place] [address] [email or web address] documented as of this encounter Visit Diagnoses Not on filedocumented in this encounter Additional Health Concerns Assessment Noted Time PHQ-2 Depression Total Score: 0 03/01/20 25 12:46 PM EDT documented as of this encounter Care Teams Podiatric Physician Relationship Specialty Start Date End Date Murray Pichardo MD [address] [place] [address] mary PCP - General Internal Medicine 05/29/21 Murray Pichardo MD [address] [place] [address] mary Historical LMR Provider 06/29/17 Michael Souza MD [address] [place] [address] Ophthalmology 09/21/20 documented as of this encounter Additional Source Comments The information contained in this document represents components of the legal health record. It is not the complete legal health record.[facility]
--- OUTSIDE RECORDS SUMMARY | 2025-08-11 08:19 | XMS_ITS | Clinical Summary ---
Author Organization [facility] Address [address] [place] [address] Care Team Providers Care Personnel Security Specialist Name Role Phone Pcp, No Primary Care [...] A & B [place] [facility] [place] Sub[place] / Payer (Ef fective 2018-Present) Name:Aldo Olivarez Relation to Subscriber:Self Name:Aldo Olivarez Payer ID:Not on file Group ID:Not on file Type:Not on file Address: [facility] [id number] MEDICARE Care Teams Personnel Security Specialist Relationship Specialty Start Date End Date Pcp, No [address] [place] [address] PCP - General 06/09/19
--- OUTSIDE RECORDS SUMMARY | 2025-08-11 08:19 | XMS_ITS | Encounter Summary ---
Author Organization [facility] Address [address] [place] [address] Phone Care Team Providers Care Computer Numeric Control Setter Name Role Phone Murray Pichardo MD Unavailable [phone] Theresa Barrow MD Unavailable Murray Pichardo MD Unavailable Ken Cardona MD Unavailable [phone] Kristie Foster NP Unavailable [phone] Bello Katz MD Unavailable Murray Pichardo MD Primary Care Provider [phone] Michael Souza MD Unavailable Murray Pichardo MD Primary Care Provider Encounter Details Date Type Department Care Team (Latest Contact Info) Description 10/24/2017 Transcribe Orders [facility] [place] [address] [place], [place] [id number] Murray Pichardo MD [address] [place], [place] [id number] [email or web address] DM type 2 causing ESRD (Primary Dx); [...] 08/20/2025 8:00 AM EST Office Visit [facility] Internal Medicine [address] [place] [address] Murray Pichardo MD [address] [place] [address] [email or web address] documented as of this encounter Results * (ABNORMAL) Lipid panel (10/24/2017 8:58 AM EST) HDL 51 mg/dL [facility] Comment: Interpretation: Risk Level Males Decreased >45 mg/dL Average 40-45 mg/dL Increased <40 mg/dL CHOLESTEROL 123 0 - 240 mg/dL [facility] TRIGLYCERIDES 87 30 - 160 mg/dL [facility] LDL 55 50 - 129 mg/dL [facility] Comment: LDL levels in terms of risk for coronary heart disease: <100 mg/dL: Optimal 100-129 mg/dL: Near or above optimal 130-159 mg/dL: Borderline high 160-189 mg/dL: High >190 mg/dL: Very High CARDIAC RISK RATIO 2.4(L) 3.4 - 5.0 C [facility] Blood 10/24/2017 8:58 AM EST 10/24/2017 9:04 AM EST us Murray Pichardo MD LAB BLOOD BKR ORDERABLES Nica lazo Result [facility] [address] [place] [address] * (ABNORMAL) CBC (10/24/2017 8:58 AM EST) WBC 7.03 3.40 - 11.20 K/uL [facility] RBC 3.49(L) 4.50 - 5.50 M/uL [facility] HGB 10.7(L) 13.0 - 17.0 g/dL [facility] HCT 33.1(L) 40.0 - 51.0 % [facility] PLT 345 130 - 400 K/uL [facility] MCV 94.8 79.0 - 98.0 fL [facility] MCH 30.7 27.0 - 34.8 pg [facility] MCHC 32.3 31.5 - 36.0 g/dL [facility] RDW 17.7(H) 10.8 - 14.6 % [facility] MPV 9.0(L) 9.4 - 12.4 fl [facility] NRBC 0.00 /100 WBCs [facility] ABSOLUTE NRBC 0.00 K/uL [facility] Blood 10/24/2017 8:58 AM EST 10/24/2017 9:04 AM EST us Murray Pichardo MD LAB BLOOD BKR ORDERABLES Nica lazo Result [facility] [address] [place], [place] [id number] * (ABNORMAL) Comprehensive metabolic panel (10/24/2017 8:58 AM EST) SODIUM 137 133 - 146 mmol/L [facility] POTASSIUM 3.9 3.3 - 5.1 mmol/L [facility] CHLORIDE 93(L) 96 - 108 mmol/L [facility] CO2 29 21 - 35 mmol/L [facility] BUN 20(H) 6 - 19 mg/dL [facility] CREATININE 5.90(H) 0.5 - 1.5 mg/dL [facility] GLUCOSE 95 70 - 99 mg/dL [facility] ALBUMIN 2.8(L) 3.9 - 4.8 g/dL [facility] TOTAL PROTEIN 6.1(L) 6.5 - 8.0 g/dL [facility] CALCIUM 7.9(L) 8.4 - 10.3 mg/dL [facility] ALKALINE PHOSPHATASE 60 39 - 117 U/L [facility] TOTAL BILIRUBIN 0.3 0 - 1.2 mg/dL [facility] AST 12 0 - 37 U/L [facility] ALT 9 0 - 40 U/L [facility] GLOBULIN 3.3 1 - 4.8 g/dL [facility] EGFR 10(L) 60 - 1,000 mL/min/1.7 3m2 [facility] Comment:Abnormal if <60. If patient is -Albanian, multiply the result by 1.21. ANION GAP 19 10 - 20 mmol/L [facility] Blood 10/24/2017 8:58 AM EST 10/24/2017 9:04 AM EST us Murray Pichardo MD LAB BLOOD BKR ORDERABLES Nica l Result Performing Organization Address [facility] Co de Phone Number [address] [address] * (ABNORMAL) Hemoglobin A1c (10/24/2017 8:58 AM EST) HEMOGLOBIN A1C 6.2(H) 4.3 - 5.8 % [facility] Blood 10/24/2017 8:58 AM EST 10/24/2017 9:04 AM EST us Murray Pichardo MD LAB BLOOD BKR ORDERABLES Nica l Result Performing Organization Address [facility] Co de Phone Number [address] [address] * TSH (10/24/2017 8:58 AM EST) TSH 2.55 0.27 - 4.20 uIU/mL [facility] Blood 10/24/2017 8:58 AM EST 10/24/2017 9:04 AM EST us Murray Pichardo MD LAB BLOOD BKR ORDERABLES Nica l Result Performing Organization Address City/[facility]/ZIP Co de Phone Number [address] [address] documented in this encounter Visit Diagnoses Diagnosis DM type 2 causing ESRD- Primary Pure hypercholesterolemia Anemia in end-stage renal disease Anemia in chronic kidney disease Encounter for extracorporeal dialysis documented in this encounter Additional Health Concerns Assessment Noted Time PHQ-2 Depression Total Score: 0 08/19/20 3:53 PM EST documented as of this encounter Care Teams Computer Numeric Control Setter Relationship Specialty Start Date End Date Murray Pichardo MD [address] [place] [address] PCP - General Internal Medicine 08/19/17 05/28/21 Murray Pichardo MD [address] [place] [address] PCP - General Internal Medicine 05/29/21 Murray Pichardo MD [address] [place] [address] Insurance Assigned Provider 06/15/17 09/17/20 Theresa Barrow MD [address] [place] [address] Historical LMR Provider 06/29/17 2 Murray Pichardo MD [address] [place] [address] Historical LMR Provider 06/29/17 Ken Cardona MD [address] [place] [address] Historical LMR Provider 06/29/17 09/16/21 Kristie Foster NP 26 [facility] 6 [place] [address] [email or web address] Historical LMR Provider 06/29/17 09/16/21 Bello Katz MD [address] [address] [email or web address] Historical LMR Provider 06/29/17 09/16/21 Michael Souza MD [address] [place] [address] Ophthalmology 09/21/20 documented as of this encounter Additional Source Comments The information contained in this document represents components of the legal health record. It is not the complete legal health record.[facility]
[2025-08-12 10:29] LABS: Tacrolimus Prograf 5.3 mcg/L
== END 2025-08-11 08:15 | disposition home or self-care (01) ==
LOC: HO.HMGCLDS 08:14
PROVIDERS: PCP Internal Medicine; Visit Provider Internal Medicine
DX: Z94.0 Kidney transplant status (principal)
CPT/HCPCS: 36415; 80197

== ENCOUNTER 2025-08-31 07:59 | Outpatient (REF) | payer MEDICARE, SELFPAY ==
--- OUTSIDE RECORDS SUMMARY | 2025-08-31 08:02 | XMS_ITS | Encounter Summary ---
Author Organization [facility] Address [address] [place] [address] Phone Care Team Providers Care Manager Environmental Services Name Role Phone Murray Pichardo MD Unavailable [phone] Michael Souza MD Unavailable [phone] Murray Pichardo MD Primary Care Provider [phone] Encounter Details Date Type Department Care Team (Late st Contact Info) Description 07/30/2025 Orders Only [facility] 40 [place] [address] Provider, MD Tamiko [address] [place], [place] [id number] Social History Tobacco Use Types Packs/Day Years [...] Care Team (Late st Contact Info) Description 02/11/2026 1:30 PM EDT Office Visit [facility] [address] [place], [place] [phone] Murray Pichardo MD [address] [place], [place] [phone] [email or web address] documented as of this encounter Procedures Procedure [...] documented as of this encounter Care Teams Manager Environmental Services Relationship Specialty Start Date End Date Murray Pichardo MD [address] [place] [address] [email or web address] PCP - General Internal Medicine 05/29/21 Murray Pichardo MD [address] [place] [address] [email or web address] Historical LMR Provider 06/29/17 Michael Souza MD [address] [place] [address] Ophthalmology 09/21/20 documented as of this encounter Additional Source Comments The information contained in this document represents components of the legal health record. It is not the complete legal health record.[facility]
--- OUTSIDE RECORDS SUMMARY | 2025-08-31 08:02 | XMS_ITS | Encounter Summary ---
Author Organization [facility] Address [address] [place] [address] Phone Care Team Providers Care Apartment Rental Clerk Name Role Phone Murray Pichardo MD Unavailable Theresa Barrow MD Unavailable Murray Pichardo MD Unavailable Ken Cardona MD Unavailable Kristie Foster NP Unavailable [phone] Bello Katz MD Unavailable [phone] Murray Pichardo MD Primary Care Provider Michael Souza MD Unavailable [phone] Murray Pichardo MD Primary Care Provider Encounter Details Date Type Department Care Team (Latest Contact Info) Description 10/24/2017 Transcribe Orders [facility]le[facility] [place] [address] [place], [place] [phone] Murray Pichardo MD [address] [place], [place] [phone] [email or web address] DM type 2 causing ESRD (Primary Dx); [...] Description 02/11/2026 1:30 PM EDT Office Visit [facility] [address] [place] [address] Murray Pichardo MD [address] [place] [address] [email or web address] documented as of this encounter Results * (ABNORMAL) Lipid panel (10/24/2017 8:58 AM EST) HDL 51 mg/dL [facility] Comment: Interpretation: Risk Level Males Decreased >45 mg/dL Average 40-45 mg/dL Increased <40 mg/dL CHOLESTEROL 123 0 - 240 mg/dL [facility] TRIGLYCERIDES 87 30 - 160 mg/dL [facility] LDL 55 50 - 129 mg/dL [facility] Comment: LDL levels in terms of risk for coronary heart disease: <100 mg/dL: Optimal 100-129 mg/dL: Near or above optimal 130-159 mg/dL: Borderline high 160-189 mg/dL: High >190 mg/dL: Very High CARDIAC RISK RATIO 2.4(L) 3.4 - 5.0 C [facility] Blood 10/24/2017 8:58 AM EST 10/24/2017 9:04 AM EST us Murray Pichardo MD LAB BLOOD BKR ORDERABLES Nica lazo Result [address] [address] * (ABNORMAL) CBC (10/24/2017 8:58 AM EST) WBC 7.03 3.40 - 11.20 K/uL [facility] RBC 3.49(L) 4.50 - 5.50 M/uL [facility] HGB 10.7(L) 13.0 - 17.0 g/dL [facility] HCT 33.1(L) 40.0 - 51.0 % [facility] PLT 345 130 - 400 K/uL [facility] MCV 94.8 79.0 - 98.0 fL [facility] MCH 30.7 27.0 - 34.8 pg [facility] MCHC 32.3 31.5 - 36.0 g/dL [facility] RDW 17.7(H) 10.8 - 14.6 % [facility] MPV 9.0(L) 9.4 - 12.4 fl [facility] NRBC 0.00 /100 WBCs [facility] ABSOLUTE NRBC 0.00 K/uL [facility] Blood 10/24/2017 8:58 AM EST 10/24/2017 9:04 AM EST us Murray Pichardo MD LAB BLOOD BKR ORDERABLES Nica lazo Result [facility] [address] [place], [place] [phone] * (ABNORMAL) Comprehensive metabolic panel (10/24/2017 8:58 AM EST) SODIUM 137 133 - 146 mmol/L [facility] POTASSIUM 3.9 3.3 - 5.1 mmol/L [facility] CHLORIDE 93(L) 96 - 108 mmol/L [facility] CO2 29 21 - 35 mmol/L [facility] BUN 20(H) 6 - 19 mg/dL [facility] CREATININE 5.90(H) 0.5 - 1.5 mg/dL [facility] GLUCOSE 95 70 - 99 mg/dL [facility] ALBUMIN 2.8(L) 3.9 - 4.8 g/dL [facility] TOTAL PROTEIN 6.1(L) 6.5 - 8.0 g/dL [facility] CALCIUM 7.9(L) 8.4 - 10.3 mg/dL [facility] ALKALINE PHOSPHATASE 60 39 - 117 U/L [facility] TOTAL BILIRUBIN 0.3 0 - 1.2 mg/dL [facility] AST 12 0 - 37 U/L [facility] ALT 9 0 - 40 U/L [facility] GLOBULIN 3.3 1 - 4.8 g/dL [facility] EGFR 10(L) 60 - 1,000 mL/min/1.7 3m2 [facility] Comment:Abnormal if <60. If patient is -Polish, multiply the result by 1.21. ANION GAP 19 10 - 20 mmol/L [facility] Blood 10/24/2017 8:58 AM EST 10/24/2017 9:04 AM EST us Murray Pichardo MD LAB BLOOD BKR ORDERABLES Nica l Result Performing Organization Address [facility] Co de Phone Number [address] [address] * (ABNORMAL) Hemoglobin A1c (10/24/2017 8:58 AM EST) HEMOGLOBIN A1C 6.2(H) 4.3 - 5.8 % [facility] Blood 10/24/2017 8:58 AM EST 10/24/2017 9:04 AM EST us Murray Pichardo MD LAB BLOOD BKR ORDERABLES Nica l Result Performing Organization Address [facility] Co de Phone Number [address] [address] * TSH (10/24/2017 8:58 AM EST) TSH 2.55 0.27 - 4.20 uIU/mL [facility] Blood 10/24/2017 8:58 AM EST 10/24/2017 9:04 AM EST us Murray Pichardo MD LAB BLOOD BKR ORDERABLES Nica l Result Performing Organization Address [facility] Co de Phone Number [address] [address] documented in this encounter Visit Diagnoses Diagnosis DM type 2 causing ESRD- Primary Pure hypercholesterolemia Anemia in end-stage renal disease Anemia in chronic kidney disease Encounter for extracorporeal dialysis documented in this encounter Additional Health Concerns Assessment Noted Time PHQ-2 Depression Total Score: 0 08/19/20 17 3:53 PM EST documented as of this encounter Care Teams Apartment Rental Clerk Relationship Specialty Start Date End Date Murray Pichardo MD [address] [place] [address] PCP - General Internal Medicine 08/19/17 05/28/21 Murray Pichardo MD [address] [place] [address] PCP - General Internal Medicine 05/29/21 Murray Pichardo MD [address] [place] [address] Insurance Assigned Provider 06/15/17 09/17/20 Theresa Barrow MD [address] [place] [address] Historical LMR Provider 06/29/17 2 Murray Pichardo MD [address] [place] [address] Historical LMR Provider 06/29/17 Ken Cardona MD [address] [place] [address], [facility] [address] [place] [address] [email or web address] Historical LMR Provider 06/29/17 09/16/21 Kristie Foster NP 26 [facility] 6 [place] [address] [email or web address] Historical LMR Provider 06/29/17 09/16/21 Bello Katz MD [address] [address] [email or web address] Historical LMR Provider 06/29/17 09/16/21 Michael Souza MD [address] [place] [address] Ophthalmology 09/21/20 documented as of this encounter Additional Source Comments The information contained in this document represents components of the legal health record. It is not the complete legal health record.[facility]
--- OUTSIDE RECORDS SUMMARY | 2025-08-31 08:02 | XMS_ITS | Encounter Summary ---
Author Organization [facility] Address [address] [place] [address] Phone Care Team Providers Care Data Integrity Consultant Name Role Phone Murray Pichardo MD Unavailable [phone] Michael Souza MD Unavailable [phone] Murray Pichardo MD Primary Care Provider [phone] Encounter Details Date Type Department Care Team (Late st Contact Info) Description 08/18/2025 Orders Only [facility]leb [place] [address] [place], [place] [phone] Murray Pichardo MD [address] [place], [place] [phone] [email or web address] Type 2 diabetes mellitus with chronic kidney disease on chronic dialysis, 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) Social History Tobacco Use Types [...] Description 02/11/2026 1:30 PM EDT Office Visit [facility] [address] [place] [address] Murray Pichardo MD [address] [place] [address] [email or web address] documented as of this encounter Results * (ABNORMAL) Hemoglobin A1c (08/18/2025 8:26 AM EST) Hemoglobin A1c 5.8(H) 4.3 - 5.6 % 08/18/2025 1:52 PM EST [facility] Calculated Mean Blood Glucose 120 mg/dL 08/18/2025 1:52 PM [facility] Comment:There is no [facility] normal range for the Estimated Average Glucose (EAG). However, a HbA1c of 5.6% (upper limit of normal) represents an EAG of 114 mg/dL. The diagnostic HbA1c level for diabetes is greater than or equal to 6.5%, which represents an EAG greater than or equal to 140 mg/dL. Blood (Blood) Venipuncture / Unknown 08/18/2025 8:26 AM EST 08/18/2025 8:26 AM EST us Murray Pichardo MD LAB BLOOD BKR ORDERABLES Nica l Result [facility] [address] [place] [address] documented in this encounter Visit Diagnoses Diagnosis Type 2 diabetes mellitus with chronic kidney disease on chronic dialysis, without long-term current use of insulin- Primary documented in this encounter Additional Health Concerns Assessment Noted Time PHQ-2 Depression Total Score: 0 03/01/20 25 12:46 PM EDT documented as of this encounter Care Teams Data Integrity Consultant Relationship Specialty Start Date End Date Murray Pichardo MD [address] [place] [address] PCP - General Internal Medicine 05/29/21 Murray Pichardo MD [address] [place] [address] mary Historical LMR Provider 06/29/17 Michael Souza MD [address] [place] [address] Ophthalmology 09/21/20 documented as of this encounter Additional Source Comments The information contained in this document represents components of the legal health record. It is not the complete legal health record.[facility]
--- OUTSIDE RECORDS SUMMARY | 2025-08-31 08:02 | XMS_ITS | Encounter Summary ---
Author Organization [facility] Address [address] [place] [address] Phone Care Team Providers Care Docketing Specialist Name Role Phone Murray Pichardo MD Unavailable Theresa Barrow MD Unavailable Murray Pichardo MD Unavailable [phone] Ken Cardona MD Unavailable Kristie Foster NP Unavailable [phone] Bello Katz MD Unavailable [phone] Murray Pichardo MD Primary Care Provider Michael Souza MD Unavailable [phone] Murray Pichardo MD Primary Care Provider Encounter Details Date Type Department Care Team (Latest Contact Info) Description 05/20/2018 Transcribe Orders [facility] [place] [address] [place], [place] [phone] Murray Pichardo MD [address] [place], [place] [phone] [email or web address] Pure hypercholesterolemia (Primary Dx); Essential [...] Description 02/11/2026 1:30 PM EDT Office Visit [facility] [address] [place] [address] Murray Pichardo MD [address] [place] [address] [email or web address] documented as of this encounter Results * PSA (screening) (05/20/2018 11:28 AM EDT) [facility] PSA 0.94 0 - 4.00 ng/mL [facility] Blood 05/20/2018 11:2 8 AM EDT 05/20/2018 11:31 AM EDT us Murray Pichardo MD LAB BLOOD BKR ORDERABLES Nica l Result Performing Organization Address City/[facility]/ZIP Co de Phone Number [address] [address] * Hemoglobin A1c (05/20/2018 11:28 AM EDT) [facility] HEMOGLOBIN A1C 5.6 4.3 - 5.8 % [facility] Blood 05/20/2018 11:2 8 AM EDT 05/20/2018 11:31 AM EDT us Murray Pichardo MD LAB BLOOD BKR ORDERABLES Nica l Result Performing Organization Address [facility] Co de Phone Number [address] [address] * (ABNORMAL) Comprehensive metabolic panel (05/20/2018 11:28 AM EDT) SODIUM 133 133 - 146 mmol/L [facility] POTASSIUM 4.5 3.3 - 5.1 mmol/L [facility] CHLORIDE 87(L) 96 - 108 mmol/L [facility] CO2 29 21 - 35 mmol/L [facility] BUN 27(H) 6 - 19 mg/dL [facility] CREATININE 6.30(HH) 0.5 - 1.5 mg/dL [facility] Comment: Critical Value. Results called to and read back by: maría [email or web address] [id number] [email or web address] GLUCOSE 83 70 - 99 mg/dL [facility] ALBUMIN 4.1 3.9 - 4.8 g/dL [facility] TOTAL PROTEIN 7.0 6.5 - 8.0 g/dL [facility] CALCIUM 9.7 8.4 - 10.3 mg/dL [facility] ALKALINE PHOSPHATASE 92 39 - 117 U/L [facility] TOTAL BILIRUBIN 0.3 0.0 - 1.2 mg/dL [facility] AST 19 0 - 37 U/L [facility] ALT 8 0 - 40 U/L [facility] GLOBULIN 2.9 1 - 4.8 g/dL [facility] EGFR 9(L) >59 mL/min/1.7 3m2 [facility] Comment:If patient is black, multiply result by 1.159. Estimated glomerular filtration rate calculated using the CKD-EPI equation. ANION GAP 22(H) 10 - 20 mmol/L [facility] Blood 05/20/2018 11:2 8 AM EDT 05/20/2018 11:31 AM EDT us Murray Pichardo MD LAB BLOOD BKR ORDERABLES Nica l Result [facility] [address] [place] [address] * (ABNORMAL) CBC (05/20/2018 11:28 AM EDT) WBC 6.32 3.40 - 11.20 K/uL [facility] RBC 4.39(L) 4.50 - 5.50 M/uL [facility] HGB 13.5 13.0 - 17.0 g/dL [facility] HCT 40.4 40.0 - 51.0 % [facility] PLT 262 130 - 400 K/uL [facility] MCV 92.0 79.0 - 98.0 fL [facility] MCH 30.8 27.0 - 34.8 pg [facility] MCHC 33.4 31.5 - 36.0 g/dL [facility] RDW 14.5 10.8 - 14.6 % [facility] MPV 9.4 9.4 - 12.4 [facility] NRBC 0.00 /100 WBCs [facility] ABSOLUTE NRBC 0.00 K/uL [facility] Blood 05/20/2018 11:2 8 AM EDT 05/20/2018 11:31 AM EDT us Murray Pichardo MD LAB BLOOD BKR ORDERABLES Nica l Result Performing Organization Address City/[facility]/ZIP Co de Phone Number [address] [address] * (ABNORMAL) TSH (05/20/2018 11:28 AM EDT) TSH 0.18(L) 0.27 - 4.20 uIU/mL [facility] Blood 05/20/2018 11:2 8 AM EDT 05/20/2018 11:31 AM EDT us Murray Pichardo MD LAB BLOOD BKR ORDERABLES Nica l Result [address] [address] * (ABNORMAL) Lipid panel (05/20/2018 11:28 AM EDT) HDL 54 mg/dL [facility] Comment: Interpretation: Risk Level Males Decreased >45 mg/dL Average 40-45 mg/dL Increased <40 mg/dL CHOLESTEROL 118 0 - 240 mg/dL [facility] TRIGLYCERIDES 87 30 - 160 mg/dL [facility] LDL 47(L) 50 - 129 mg/dL [facility] Comment: LDL levels in terms of risk for coronary heart disease: <100 mg/dL: Optimal 100-129 mg/dL: Near or above optimal 130-159 mg/dL: Borderline high 160-189 mg/dL: High >190 mg/dL: Very High CARDIAC RISK RATIO 2.2(L) 3.4 - 5.0 [facility] Blood 05/20/2018 11:2 8 AM EDT 05/20/2018 11:31 AM EDT us Murray Pichardo MD LAB BLOOD BKR ORDERABLES Nica l Result [facility] [address] [place] [address] documented in this encounter Visit Diagnoses Diagnosis [...] documented as of this encounter Care Teams Docketing Specialist Relationship Specialty Start Date End Date Murray Pichardo MD [address] [place] [address] [email or web address] PCP - General Internal Medicine 08/19/17 05/28/21 Murray Pichardo MD [address] [place] [address] [email or web address] PCP - General Internal Medicine 05/29/21 Murray Pichardo MD [address] [place] [address] [email or web address] Insurance Assigned Provider 06/15/17 09/17/20 Theresa Barrow MD [address] [place] [address] Historical LMR Provider 06/29/17 2 Murray Pichardo MD [address] [place] [address] Historical LMR Provider 06/29/17 Ken Cardona MD [address] [place] [address] [address] [place] [address] Historical LMR Provider 06/29/17 09/16/21 Kristie Foster NP [address] [place] [address] 6 [place] [address] Historical LMR Provider 06/29/17 09/16/21 Bello Katz MD [address] [place] [address] [email or web address] Historical LMR Provider 06/29/17 09/16/21 Michael Souza MD [address] [place] [address] Ophthalmology 09/21/20 documented as of this encounter Additional Source Comments The information contained in this document represents components of the legal health record. It is not the complete legal health record.[facility]
--- OUTSIDE RECORDS SUMMARY | 2025-08-31 08:02 | XMS_ITS | Clinical Summary ---
Author Organization [facility] Address [address] [place] [phone] Phone Care Team Providers Care Child Welfare Specialist Name Role Phone Murray Pichardo MD Primary Care Provider [phone] Allergies Active Allergy Reactions Criticality Noted Date Comments Coconut (Cocos Nucifera) Swelling 11/17/2020 Coconut Fatty Acid Other (see comments) 018 Meclocycline Itching 11/17/2020 Other 12/27/2016 [place] nuts Cambridge nuts Peanut (Diagnostic) 12/27/2016 [place] nuts Medications ProAir HFA 108 (90 Base) MCG/ACT inhaler TAKE 2 PUFFS BY MOUTH EVERY 4 HOURS NEEDED 11/08/19 21 Active atorvastatin (LIPITOR) 20 MG tablet Take 20 mg by mouth 1 (one) time each day 10/10/19 21 Active fluticasone HFA (Flovent HFA) 110 MCG/ACT inhaler 2 puffs twice a day 10/22/19 18 Active Serevent Diskus 50 MCG/DOSE diskus inhaler [...] (one) time each day 12/19/19 22 Active Fexofenadine HCl (MUCINEX ALLERGY PO) Take by mouth daily Active tacrolimus (PROGRAF) 1 MG capsuleIndicati ons:Kidney replaced by transplant TAKE TWO CAPSULES BY MOUTH EVERY MORNING AND EVERY EVENING 360 capsule 11 11/20/19 25 Active NIFEdipine CC (ADALAT CC) 60 MG 24 hr tablet TAKE ONE TABLET BY MOUTH TWO TIMES A DAY 180 tablet 11 11/20/19 25 Active nebivolol (BYSTOLIC) 5 MG tabletIndicatio ns:Hypertensive disorder TAKE ONE TABLET BY MOUTH ONCE DAILY 90 tablet 3 11/20/19 25 Active cyclobenzaprine (FLEXERIL) 5 MG tablet Take 1 tablet (5 mg total) by mouth 3 (three) times a day if needed for muscle spasms for up to 21 days 30 tablet 2 02/27/20 25 Active doxazosin (CARDURA) 4 MG tablet TAKE 1 TABLET (4 MG TOTAL) BY MOUTH AT BED TIME 90 tablet 3 05/13/20 25 Active Eliquis 5 MG tablet Take 5 mg by mouth in the morning and 5 mg in the evening. Active tacrolimus (Prograf) 0.5 MG capsule Take 1 capsule (0.5 mg total) by mouth in the morning and 1 capsule (0.5 mg total) in the evening. 180 capsule 3 08/04/20 25 026 Active magnesium oxide 400 (240 Mg) MG tabletIndicatio ns:Other penitentiary current drug therapy TAKE 1 TABLET BY MOUTH IN THE MORNING AND 1 TABLET IN THE EVENING. 60 tablet 5 08/16/20 25 Active sodium bicarbonate 650 MG tablet TAKE ONE TABLET BY MOUTH EVERY MORNING AND EVERY EVENING AND BEFORE BEDTIME 270 tablet 2 08/18/20 25 Active magnesium oxide 400 (240 Mg) MG tabletIndicatio ns:Other penitentiary current drug therapy Take 1 tablet by mouth in the morning and 1 tablet in the evening. 180 tablet 3 06/10/20 24 025 Discontinued Active Problems Problem Noted [...] 10/10/2022 Chronic kidney disease, stage 2 (mild) Kidney replaced by transplant 11/17/2020 Left bundle-branch [...] Encounters Date Type Department Care Team Description 08/17/2025 Refill [facility] [address] [place] [phone] Miles Morton MD 08/16/2025 Refill [facility] [address] [facility] [address] [place] [phone] Greg Cesar MD Other intermediate card tender current drug therapy 08/11/2025 Orders Only [facility] [address] [facility] [address] [place] [phone] Miles Morton MD Kidney transplant status 08/04/2025 9:15 AM EST Office Visit [facility] [address] [phone] Miles Morton MD Kidney transplant status (Primary Dx) 07/29/2025 Orders Only [facility] [address] [phone] Greg Cesar MD from Last 3 Months Immunizations Immunization Administration [...] Sign Reading Time Taken Comments Blood Pressure 120/72 08/04/2025 8:56 AM EST Pulse 91 08/04/2025 8:56 AM EST Temperature 36.7 C (98 F) 04/14/2019 12:00 PM EDT Respiratory Rate 14 04/14/2019 12:0 0 PM EDT Oxygen Saturation 96% 08/04/2025 8:56 AM EST Inhaled Oxygen Concentration - - Weight 89.7 kg (197 lb 12.8 oz) 08/04/2025 8:56 AM EST Height 180.3 cm (5' 11 ) 03/26/2023 8:50 AM EDT Body Mass Index 27.59 03/26/2023 8:50 AM EDT Plan of Treatment Upcoming Encounters Date Type Department Care Team (Late st Contact Info) Description 09/03/2025 9:15 AM EST Office Visit [facility] [address] [phone] Greg Cesar MD [address] [phone] Health Maintenance Due Date Last [...] Procedure Name Priority Date/Time Associated Diagnosis Comments TACROLIMUS LEVEL Routine 08/11/2025 10:1 3 AM EST Kidney transplant status CALCIUM Routine 07/29/2025 10:08 AM EST CREATININE, BLOOD Routine 07/29/2025 10: 08 AM EST BUN Routine 07/29/2025 10:08 AM EST ELECTROLYTE PANEL Routine 07/29/2025 10: 08 AM EST TACROLIMUS LEVEL Routine 07/29/2025 10:0 8 AM EST Kidney transplant status CBC AND DIFFERENTIAL Routine 07/29/2025 10:08 AM EST Kidney transplant status EXT RESULT ENTRY Routine 07/29/2025 HEMOGLOBIN A1C Routine 10/08/2022 8:16 AM EST Kidney replaced by transplant from Last 3 Months or Most Recently Relevant to Health Maintenance Results * Tacrolimus level (08/11/2025 10:13 AM EST) Only the most recent of2 resultswithin the time period is included. Tacrolimus Lvl 5.3 mcg/L See o rder comments Comment: No definitive therapeutic or toxic ranges have been established. Optimal blood drug levels are influenced by type of transplant, patient response, time post- transplant, co-administration of other drugs, and drug formulation. The following trough range is a suggested guideline: 5.0-20.0 mcg/L. This test was developed and its analytical performance characteristics have been determined by [employer]. It has not been cleared or approved by the FDA. This assay has been validated pursuant to the CLIA regulations and is used for clinical purposes. THIS TEST WAS PERFORMED AT: [facility] [address] [place] [phone] ALFREDO GALDAMEZ MD Blood Venous blood / Unknown 08/11/2025 10:13 AM EST 08/11/2025 10:13 AM EST Miles Morton MD LAB BLOOD ORDERABLES Final Result [place] See order comments [place] [address] * Creatinine (07/29/2025 10:08 AM EST) Creatinine Serum 0.75 0.5 - 1.4 mg/dL See order comments eGFR (Calc) >60 See orde r comments Comment: Chronic Kidney Disease: Estimated GFR < 60 mL/min/1.73m2 Severe Kidney Disease: Estimated GFR < 15 mL/min/1.73m2 07/29/2025 10:0 8 AM EST 07/29/2025 10:08 AM EST Greg Cesar MD LAB BLOOD ORDERABLES Final Re sult Performing Organization Address [facility] Co de Phone Number [place] See order comments [place] [address] * (ABNORMAL) CBC and differential (07/29/2025 10:08 AM EST) WBC 6.0 4.8 - 10.8 X10*3/uL See order comments RBC 4.02(L) 4.60 - 5.80 X10*6/uL See order comments Hgb 12.9(L) 14.0 - 18.0 g/dl See order comments Hematocrit 38.7(L) 42.0 - 52.0 % See order comments MCV 96.3 80.0 - 98.0 fL See order comments MCH 32.1 27.0 - 33.0 pg See order comments MCHC 33.3 31.0 - 36.0 g/dl See order comments RDW 13.9 11.0 - 16.0 % See order comments Platelets 258 160 - 400 X10*3/uL See order comments MPV 9.7 9.4 - 12.4 fL See order comments Neutrophils % Auto 46.9 45 - 73 % See order comments Immature Granulocytes 0.2 0.0 - 0.4 % See order comments Lymphocytes Relative 37.9 20 - 40 % See order comments Monocytes 8.0 2 - 11 % See order comments Eosinophils Relative 5.8(H) 0 - 4 % See order comments Basophils Relative 1.2 0 - 2 % See order comments nRBC Count 0.0 0.0 - 0.2 /100WBC See order comments Neutrophils Absolute 2.8 2.0 - 8.3 x10*3/uL See order comments Immature Grans (Absolute) 0.01 0.00 - 0.03 X10*3/uL See order comments Lymphocytes Absolute 2.3 1.2 - 4.9 X10*3/uL See order comments Monocytes Absolute 0.5 0.1 - 1.2 X10*3/uL See order comments Eosinophils Absolute 0.4 0.0 - 0.4 X10*3/uL See order comments Basophils Absolute 0.1 0.0 - 0.2 X10*3/uL See order comments NRBC Absolute 0.000 0.0 - 0.012 X10*3/uL See order comments Blood Venous blood / Unknown 07/29/2025 10:08 AM EST 07/29/2025 10:08 AM EST Greg Cesar MD LAB BLOOD ORDERABLES Final Re sult [place] See order comments [place] [address] * (ABNORMAL) BUN (07/29/2025 10:08 AM EST) BUN 8(L) 9 - 16 mg/dL See order comments 07/29/2025 10:0 8 AM EST 07/29/2025 10:08 AM EST Greg Cesar MD LAB BLOOD ORDERABLES Final Re sult [place] See order comments [place] [address] * Calcium (07/29/2025 10:08 AM EST) Calcium 8.9 8.4 - 10.2 mg/dL See order comments 07/29/2025 10:0 8 AM EST 07/29/2025 10:08 AM EST Greg Cesar MD LAB BLOOD ORDERABLES Final Re sult [place] See order comments [place] [address] * Electrolyte panel (07/29/2025 10:08 AM EST) Sodium 137 135 - 145 mmol/L See order comments Potassium 3.7 3.3 - 5.1 mmol/L See order comments Chloride 103 96 - 108 mmol/L See order comments Bicarbonate (CO2) 23 22 - 29 mmol/L See order comments Anion Gap 15 12 - 20 See order comments 07/29/2025 10:0 8 AM EST 07/29/2025 10:08 AM EST Greg Cesar MD LAB BLOOD ORDERABLES Final Re sult Performing Organization Address [facility] Co de Phone Number [place] See order comments [place] [address] * EXT RESULT ENTRY (07/29/2025) Sodium 137 137 - 147 Potassium 3.7 3.4 - 5.5 Chloride 103.0 99.0 - 108.0 Carbon Dioxide 23 mmol/L Anion Gap 15 <=30 MMOL/L BUN 8 4 - 21 mg/dL Creatinine 0.75 0.60 - 1.30 mg/dL Calcium 8.9 8.7 - 10.7 mg/dL eGFR Non-Afr Grenadian >60 07/29/2025 [facility] Rika HERNANDEZ LAB BLOOD ORDERABLES Nica l Result * Hemoglobin A1c (10/08/2022 8:16 AM EST) Hemoglobin A1C 4.8 (4.0-5.6) % [facility] Comment: MONITORING: In known diabetic patients, hemoglobin A1c targets should be discussed with health care provider. DIAGNOSTIC USE: The [place] [employer] (ADA) and the World Health [...] Supplement 1 Testing performed or reported by [facility], a Service of [facility], [address] [place] [address] Valeria Faulkner MD, Auto T[employer] [facility]# [id number] Blood specimen (specimen) Venous blood / Unknown 10/08/2022 8:16 AM EST 10/08/2022 8:30 AM EST us Mary Lou Marks MD LAB BLOOD ORDERABLES Final Resu lt [facility] from Last 3 Months or Most Recently Relevant to Health Maintenance Insurance U[employer] Medicare Medicare Care Teams Child Welfare Specialist Relationship Specialty Start Date End Date Murray Pichardo MD [address] [place] [address] PCP - General 07/14/19
--- OUTSIDE RECORDS SUMMARY | 2025-08-31 08:02 | XMS_ITS | Clinical Summary ---
Author Organization [facility] Address [address] [place] [address] Care Team Providers Care Finance Advisor Name Role Phone Pcp, No Primary Care [...] A & B MEDICAID OUT OF STATE [facility] [place] [facility] Member Subscriber Plan / Payer (Ef fective 2018-Present) Name:Aldo Olivarez Relation to Subscriber:Self Name:Aldo Olivarez Payer ID:Not on file Group ID:Not on file Type:Not on file Address: [facility] [address] MEDICARE Care Teams Finance Advisor Relationship Specialty Start Date End Date Pcp, [place] [address] [place] [address] PCP - General 06/09/19
--- OUTSIDE RECORDS SUMMARY | 2025-08-31 08:02 | XMS_ITS | Clinical Summary ---
Author Organization [facility] Address [address] [place] [phone] Phone Care Team Providers Care Adult Probation Officer Name Role Phone Murray Pichardo MD Unavailable [phone] Michael Souza MD Unavailable [phone] Murray Pichardo MD Primary Care Provider Allergies Active Allergy Reactions Criticality Noted Date Comments Coconut Unknown 10/25/2017 Coconut Oil 12/27/2016 Meclocycline Itching 11/17/2020 Other 12/27/2016 [place] nuts Medications lancets 28 gauge Misc bid [...] sugar diagnostic (ONETOUCH VERIO) Strp strips See Instruction s, # 100 each, Refills 11, Tot. Refills 11, Maintenance , Check BG 2x daily, for T2DM (E11.9), 06/30/21 8:59:00 EDT, Compound, 180, cm, 06/30/21 8:13:00 EDT, Height 021 Active doxazosin (CARDURA) 4 MG tablet See Instruction s, TAKE ONE TABLET BY MOUTH EVERY NIGHT AT BEDTIME, # 30 tablet, 11 Refills, [facility], 180, cm, 06/30/21 8:13:00 EDT, Height 022 Active magnesium oxide (MAG-OX) 400 mg (241.3 mg elemental) tablet Take 400 mg by mouth daily. 023 Active guaifenesin/dextrometh orphan (MUCINEX DM ORAL) Take 1 tablet by [...] within 12 hours or as directed by 60 patch 025 Active levothyroxine (SYNTHROID, LEVOTHROID) 112 MCG tabletIndications:Acqu ired hypothyroidism TAKE 1 TABLET BY MOUTH EVERY DAY IN THE MORNING 90 tablet 3 025 Active albuterol 90 mcg/actuation inhalerIndications:Mod erate persistent asthma, unspecified whether complicated INHALE 2 PUFFS INTO THE LUNGS EVERY 6 HOURS NEEDED FOR WHEEZING 17 g 2 025 Active pantoprazole (PROTONIX) 40 MG tablet TAKE 1 TABLET BY MOUTH EVERY DAY 90 tablet 3 025 Active atorvastatin (LIPITOR) 20 MG tabletIndications:Pure hypercholesterolemia TAKE 1 TABLET BY MOUTH EVERY DAY 90 tablet 3 Active tacrolimus (PROGRAF) 0.5 MG capsule Take 0.5 mg by mouth 2 (two) times a day. 2025 Active ELIQUIS 5 mg tablet Take 5 mg by mouth 2 (two) times a day. Active aspirin 81 MG EC tablet Take 81 mg by mouth every evening. 2024 Active metFORMIN (GLUCOPHAGE) 500 MG immediate release tabletIndications:Type 2 diabetes mellitus with chronic kidney disease on chronic dialysis, without long-term current use of insulin Take 1 tablet (500 mg total) by mouth daily. 90 tablet 3 Active metFORMIN (GLUCOPHAGE) 500 MG tablet Take 1 tablet (500 mg total) by mouth 2 (two) times a day with meals. 90 tablet 3 025 2024 Discontinued Active Problems Problem Noted Date Diagnosed Date Atrial fibrillation 06/08/2025 Assessment & Plan (06/08/2025 12:38 PM EDT): Patient with new onset atrial fibrillation as seen on EKG without RVR. Patient is asymptomatic. He has no history of atrial fibrillation. Given this, would recommend patient follow-up with cardiology for further assessment. [id number] score of 3 (age, hypertension history, and diabetes history)., will likely need to be on anticoagulation. Given this finding, will have my RN team reach out to [facility] cardiology to schedule a preop appointment as well as consultation regarding the atrial fibrillation. Patient scheduled with [facility] cardiology on 06/16/2025. Will obtain an [...] Encounters Date Type Department Care Team Description 08/20/2025 8:00 AM EST Office Visit [facility] [address] [facility] [place] [address] Murray Pichardo MD Type 2 diabetes mellitus with chronic kidney disease on chronic dialysis, 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); Acquired hypothyroidism; End-stage renal failure with renal transplant; Persistent atrial fibrillation; Bilateral carotid artery stenosis; Chronic bilateral low back pain without sciatica; Mild persistent asthma, unspecified whether complicated; End stage renal disease; Anemia due to chronic kidney disease, on chronic dialysis 08/18/2025 [facility] [address] [facility] [place] [address] Murray Pichardo MD Type 2 diabetes mellitus with chronic kidney disease on chronic dialysis, 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) 08/12/[address] [facility] [address] [place] [address] Tamiko Meléndez MD 08/02/2025 Orders Only [facility] [address] [place] [address] Tamiko Meléndez MD 07/30/2025 Orders Only [facility] [address] [place] [address] Tamiko Meléndez MD 06/15/2025 Telephone [facility] [address] [place] [address] Murray Pichardo MD Prior Auth for Echo 06/14/2025 Refill [facility] [address] [place] [address] Murray Pichardo MD Medication Refill 06/08/2025 12:06 PM EDT - 06/08/2025 11:59 PM EDT Hospital Encounter [facility] [address] [place] [address] Cecille Jimenez PA-C Discharge Disposition: Home or Self Care 06/08/2025 11:20 AM EDT Office Visit [facility] [address] [place] [address] Cecille Jimenez PA-C Bilateral carotid artery stenosis (Primary Dx); Abnormal electrocardiogram (ECG) (EKG); Atrial fibrillation, unspecified type 06/08/2025 Telephone [facility] [address] [place] [address] Murray Pichardo MD Cardiology Appointment from Last 3 Months Immunizations Immunization Administration [...] Influenza Trivalent Adjuvant ed Preservative free IM 06/21/2025,05/26/2024 Influenza, Unspecified Formulation 08/22/2019,,11/19/2017 Pneumococcal conjugate PCV13 [...] Sign Reading Time Taken Comments Blood Pressure 108/50 08/20/2025 7:52 AM EST Pulse 75 08/20/2025 7:52 AM EST Temperature 36.4 C (97.6 F) 08/20/2025 7:52 AM EST Respiratory Rate 16 08/20/2025 7:52 AM EST Oxygen Saturation 98% 08/20/2025 7:52 AM EST Inhaled Oxygen Concentration - - Weight 90.7 kg (200 lb) 08/20/2025 7:52 AM EST Height 171.3 cm (5' 7.44 ) 08/20/2025 7:52 AM ES T Body Mass Index 30.92 08/20/2025 7:52 AM EST Plan of Treatment Upcoming Encounters Date Type Department Care Team (Late st Contact Info) Description 02/11/2026 1:30 PM EDT Office Visit [facility] [address] [place] [address] Murray Pichardo MD [address] [place] [address] [email or web address] Health Maintenance Due Date Last Done Comments COLOGUARD 1999 FIT TEST 1999 FOBT 1999 SIGMOIDOSCOPY 1999 VIRTUAL COLONOSCOPY 1999 DIABETIC EYE EXAM 08/19/2017 COVID-19 VACCINE (9 - Mixed Product risk season) 2025 06/21/2025, 05/26/2024, 05/30/2023, Additional history exists HEMOGLOBIN A1C 02/16/2026 08/18/2025, 05/0 01/2025, 06/24/2024, Additional history exists BLOOD PRESSURE 02/18/2026 08/20/2025 DEPRESSION SCREENING 03/01/2026 03/01/2025 CREATININE LEVEL 08/20/2026 08/20/2025, , 03/01/2025, Additional history exists LIPID PANEL 08/20/2026 08/20/2025, 062 11/2024, 02/27/2024, Additional history exists TSH LEVEL 08/20/2026 08/20/2025, 02/08, 02/27/2024, Additional history exists COLONOSCOPY 02/13/2027 11/17/2024 COLORECTAL CANCER SCREENING 02/13/2027 Adult Td,Tdap Booster 11/20/2027 11/19/2017, 008 HEPATITIS C SCREENING Completed 05/27/2018 PNEUMOCOCCAL VACCINES (50+ years) Completed 08/22/2019, 11/19/2017, 05/10/2017, Additional history exists ZOSTER VACCINES Completed 08/12/2020, 100 09/2019, 06/12/2014 RSV VACCINE Completed 05/30/2023 INFLUENZA VACCINE Completed 06/21/2025, , 05/22/2022, Additional history exists SMOKING STATUS SCREENING (Once After 26 Yrs) Completed 08/20/2025 HEPATITIS A VACCINES Aged Out No long [...] Name Priority Date/Time Associated Diagnosis Comments CBC AND DIFFERENTIAL Routine 08/20/2025 9:13 AM EST Type 2 diabetes mellitus with chronic kidney disease on chronic dialysis, without long-term current use of insulin End-stage renal failure with renal transplant Persistent atrial fibrillation VITAMIN B12 Routine 08/20/2025 9:13 AM EST Anemia due to chronic kidney disease, on chronic dialysis FOLATE Routine 08/20/2025 9:13 AM EST Anemia due to chronic kidney disease, on chronic dialysis IRON AND IRON BINDING CAPACITY Routine 08/20/2025 9:13 AM EST Anemia due to chronic kidney disease, on chronic dialysis FERRITIN Routine 08/20/2025 9:13 AM EST Anemia due to chronic kidney disease, on chronic dialysis MAGNESIUM Routine 08/20/2025 9:13 AM EST End-stage renal failure with renal transplant Persistent atrial fibrillation 25-OH VITAMIN D Routine 08/20/2025 9:13 AM EST End stage renal disease TSH WITH REFLEX Routine 08/20/2025 9:13 AM EST Acquired hypothyroidism LIPID PANEL Routine 08/20/2025 9:13 AM EST Type 2 diabetes mellitus with chronic kidney disease on chronic dialysis, without long-term current use of insulin CBC AND DIFFERENTIAL Routine 08/20/2025 9:13 AM EST Type 2 diabetes mellitus with chronic kidney disease on chronic dialysis, without long-term current use of insulin End-stage renal failure with renal transplant Persistent atrial fibrillation COMPREHENSIVE METABOLIC PANEL (CMP) Routine 08/20/2025 9:13 AM EST Type 2 diabetes mellitus with chronic kidney disease on chronic dialysis, without long-term current use of insulin End-stage renal failure with renal transplant Persistent atrial fibrillation HEMOGLOBIN A1C Routine 08/18/2025 8:26 AM EST Type 2 diabetes mellitus with chronic kidney disease on chronic dialysis, without long-term current use of insulin OUTSIDE LAB Routine 08/11/2025 3:44 PM EST OUTSIDE LAB Routine 07/29/2025 2:31 PM EST OUTSIDE LAB Routine 07/29/2025 1:25 PM EST CBC AND DIFFERENTIAL Routine 06/08/2025 12:06 PM EDT Bilateral carotid artery stenosis HM COLONOSCOPY FOR RESULT ENTRY ONLY Routine 11/17/2024 9:49 AM EDT from Last 3 Months or Most Recently Relevant to Health Maintenance Results * (ABNORMAL) Comprehensive Metabolic Panel (CMP) (08/20/2025 9:13 AM EST) [facility] Sodium 131(L) 136 - 145 mmol/L 08/20/2025 1:56 PM EST [facility] Potassium 4.0 3.4 - 5.1 mmol/L 08/20/2025 1:56 PM [facility] Chloride 96(L) 98 - 107 mmol/L 08/20/2025 1:56 PM [facility] CO2 20 20 - 31 mmol/L 08/20/2025 1:56 PM [facility] BUN 10 6 - 23 mg/dL 08/20/2025 1:56 PM [facility] Creatinine 0.90 0.60 - 1.30 mg/dL 08/20/2025 1:56 PM [facility] Glucose 127(H) 70 - 99 mg/dL 08/20/2025 1:56 PM [facility] Calcium 9.8 8.5 - 10.5 mg/dL 08/20/2025 1:56 PM [facility] AST 19 <40 U/L 08/20/2025 1:56 PM [facility] ALT 9 <50 U/L 08/20/2025 1:56 PM [facility] Alkaline Phosphatase 59 40 - 130 U/L 08/20/2025 1:56 PM [facility] Bilirubin, Total 0.4 0.0 - 1.2 mg/dL 08/20/2025 1:56 PM [facility] Total Protein 7.1 6.4 - 8.3 g/dL 08/20/2025 1:56 PM [facility] Albumin 4.0 3.5 - 5.2 g/dL 08/20/2025 1:56 PM [facility] Globulin 3.1 1.9 - 4.1 g/dL 08/20/2025 1:56 PM [facility] eGFR 91 >59 mL/min/1.7 3m2 08/20/2025 1:56 PM [facility] Comment:Estimated glomerular filtration rate calculated using the CKD-EPI refit equation. Anion Gap 15 3 - 17 mmol/L 08/20/2025 1:56 PM [facility] Blood (Blood) Venipuncture / Unknown 08/20/2025 9:13 AM EST 08/20/2025 9:13 AM EST us Murray Pichardo MD LAB BLOOD BKR ORDERABLES Nica lazo Result [facility] [address] [place] [address] * (ABNORMAL) CBC and Differential (08/20/2025 9:13 AM EST) WBC 4.80 4.00 - 11.00 K/uL 08/20/2025 1:40 PM [facility] RBC 3.96(L) 4.50 - 5.90 M/uL 08/20/2025 1:40 PM [facility] Hemoglobin 12.7(L) 13.5 - 17.5 g/dL 08/20/2025 1:40 PM [facility] Hematocrit 38.2(L) 41.0 - 53.0 % 08/20/2025 1:40 PM [facility] MCV 96.5 80.0 - 100.0 fL 08/20/2025 1:40 PM [facility] MCH 32.1(H) 27.0 - 31.0 pg 08/20/2025 1:40 PM [facility] MCHC 33.2 32.0 - 36.0 g/dL 08/20/2025 1:40 PM [facility] MPV 9.2 8.4 - 12.0 fL 08/20/2025 1:40 PM [facility] RDW-CV 14.5 11.5 - 14.5 % 08/20/2025 1:40 PM [facility] PLT 266 150 - 450 K/uL 08/20/2025 1:40 PM [facility] Neutrophils 55.4 % 08/20/2025 1:40 PM [facility] Lymphocytes 30.8 % 08/20/2025 1:40 PM [facility] Monocytes 9.6 % 08/20/2025 1:40 PM [facility] Eosinophils 2.5 % 08/20/2025 1:40 PM [facility] Basophils 1.5 % 08/20/2025 1:40 PM [facility] Imm Grans 0.2 % 08/20/2025 1:40 PM [facility] NRBC 0.0 <=0.0 /100 WBCs 08/20/2025 1:40 PM [facility] Absolute Neutrophils 2.66 1.92 - 7.60 K/uL 08/20/2025 1:40 PM [facility] Absolute Lymphocytes 1.48 0.72 - 4.10 K/uL 08/20/2025 1:40 PM [facility] Absolute Monocytes 0.46 0.16 - 1.10 K/uL 08/20/2025 1:40 PM [facility] Absolute Eosinophils 0.12 0.00 - 0.50 K/uL 08/20/2025 1:40 PM [facility] Absolute Basophils 0.07 0.00 - 0.15 K/uL 08/20/2025 1:40 PM [facility] Absolute Imm Grans 0.01 0.00 - 0.09 K/uL 08/20/2025 1:40 PM [facility] Absolute NRBC 0.00 <=0.00 K cells/uL 08/20/2025 1:40 PM [facility] Absolute Neutrophils 2.66 1.92 - 7.60 K/uL 08/20/2025 1:40 PM [facility] Comment:Automated cell count . Manual ANC may differ if performed. Diff Type Auto 08/20/2025 1:40 PM [facility] Blood (Blood) Venipuncture / Unknown 08/20/2025 9:13 AM EST 08/20/2025 9:13 AM EST Murray Pichardo MD LAB BLOOD BKR ORDERABLES Nica l Result [address] [address] * Thyroid Stimulating Hormone (TSH), with Reflex (08/20/2025 9:13 AM EST) TSH 4.59 0.40 - 5.90 uIU/mL 08/20/2025 10:56 PM [facility] Blood (Blood) Venipuncture / Unknown 08/20/2025 9:13 AM EST 08/20/2025 9:13 AM EST us Murray Pichardo MD LAB BLOOD BKR ORDERABLES Nica l Result Performing Organization Address City/[facility] Hospital/ZIP Co de Phone Number [address] [address] * (ABNORMAL) Iron and Total Iron Binding Capacity (Iron/TIBC) (08/20/2025 9:13 AM EST) Iron 120 45 - 182 ug/dL 08/20/2025 1:56 PM [facility] Total Iron-Binding Capacity (TIBC) 237 220 - 460 ug/dL 08/20/2025 1:56 PM [facility] Transferrin Saturation 51(H) 14 - 50 % 08/20/2025 1:56 PM [facility] Blood (Blood) Venipuncture / Unknown 08/20/2025 9:13 AM EST 08/20/2025 9:13 AM EST us Murray Pichardo MD LAB BLOOD BKR ORDERABLES Nica l Result Performing Organization Address [facility]/ZIP Co de Phone Number [address] [address] * 25-OH Vitamin D (08/20/2025 9:13 AM EST) 25-OH Vitamin D, Total 25 20 - 50 ng/mL 08/20/2025 4:51 PM [facility] Comment: Severe deficiency: <10 ng/mL Mild to moderate deficiency: 10-19 ng/mL Optimum levels: 20-50 ng/mL Increased risk of hypercalciuria: 51-80 ng/mL Possible toxicity: >80 ng/mL Blood (Blood) Venipuncture / Unknown 08/20/2025 9:13 AM EST 08/20/2025 9:13 AM EST Murray Pichardo MD LAB BLOOD BKR ORDERABLES Nica l Result Performing Organization Address City/[facility]/ZIP Co de Phone Number [address] [address] * Magnesium (08/20/2025 9:13 AM EST) Magnesium 1.7 1.7 - 2.6 mg/dL 08/20/2025 1:56 PM EST [facility] Blood (Blood) Venipuncture / Unknown 08/20/2025 9:13 AM EST 08/20/2025 9:13 AM EST Mruray Pichardo MD LAB BLOOD BKR ORDERABLES Nica l Result [address] [address] * Folate (08/20/2025 9:13 AM EST) Pathologist [facility] Folic Acid 5.2 >4.7 ng/mL 08/20/2025 4:51 PM EST [facility] Blood (Blood) Venipuncture / Unknown 08/20/2025 9:13 AM EST 08/20/2025 9:13 AM EST Murray Pichardo MD LAB BLOOD BKR ORDERABLES Nica l Result Performing Organization Address City/[facility]/ZIP Co de Phone Number [address] [address] * (ABNORMAL) Ferritin (08/20/2025 9:13 AM EST) Pathologist [facility] Ferritin 441(H) 30 - 400 ug/L 08/20/2025 10:56 PM EST [facility] Blood (Blood) Venipuncture / Unknown 08/20/2025 9:13 AM EST 08/20/2025 9:13 AM EST us Murray Pichardo MD LAB BLOOD BKR ORDERABLES Nica l Result [address] [address] * Vitamin B12 (08/20/2025 9:13 AM EST) Pathologist [facility] Vitamin B12 490 232 - 1,245 pg/mL 08/20/2025 3:11 PM [facility] Blood (Blood) Venipuncture / Unknown 08/20/2025 9:13 AM EST 08/20/2025 9:13 AM EST us Murray Pichardo MD LAB BLOOD BKR ORDERABLES Nica l Result Performing Organization Address City/[facility]/ZIP Co de Phone Number [address] [address] * Lipid Panel (08/20/2025 9:13 AM EST) [facility] Cholesterol 139 <200 mg/dL 08/20/2025 1:56 PM [facility] HDL 67 >=40 mg/dL 08/20/2025 1:56 PM [facility] Calculated LDL 52 <130 mg/dL 08/20/2025 1:56 PM [facility] Comment:LDL is calculated us ing the Mauricio-NIH equation (KYLER Cardiol. 2019 1;5(5):540-548). Non-HDL Cholesterol 72 mg/dL 08/20/2025 1:56 PM [facility] Comment:Guidelines suggest a non-HDL cholesterol goal 30 mg/dL higher than the patient-specific LDL cholesterol goal. Cardiac Risk Ratio 2.1 0.0 - 5.0 2024 1:56 PM [facility] Triglycerides 114 <=150 mg/dL 08/20/2025 1:56 PM [facility] Blood (Blood) Venipuncture / Unknown 08/20/2025 9:13 AM EST 08/20/2025 9:13 AM EST us Murray Pichardo MD LAB BLOOD BKR ORDERABLES Nica l Result Performing Organization Address City/[facility]/ZIP Co de Phone Number [address] [address] * (ABNORMAL) Hemoglobin A1c (08/18/2025 8:26 AM EST) Hemoglobin A1c 5.8(H) 4.3 - 5.6 % 08/18/2025 1:52 PM EST [facility] Calculated Mean Blood Glucose 120 mg/dL 08/18/2025 1:52 PM EST [facility] Comment:There is no [facility] normal range for the Estimated Average Glucose (EAG). However, a HbA1c of 5.6% (upper limit of normal) represents an EAG of 114 mg/dL. The diagnostic HbA1c level for diabetes is greater than or equal to 6.5%, which represents an EAG greater than or equal to 140 mg/dL. Blood (Blood) Venipuncture / Unknown 08/18/2025 8:26 AM EST 08/18/2025 8:26 AM EST Murray Pichardo MD LAB BLOOD BKR ORDERABLES Nica l Result [address] [address] * Outside Lab (Non-MGB) (08/11/2025 3:44 PM EST) Only the most recent of3 resultswithin the time period is included. Historical Provider LAB BLOOD BKR ORDERABLES Final Result * (ABNORMAL) CBC and differential (06/08/2025 12:06 PM EDT) WBC 6.32 4.00 - 11.00 K/uL [facility] RBC 4.19(L) 4.50 - 5.90 M/uL [facility] HGB 13.6 13.5 - 17.5 g/dL [facility] HCT 40.0(L) 41.0 - 53.0 % [facility] PLT 217 150 - 450 K/uL [facility] MCV 95.5 80.0 - 100.0 fL [facility] MCH 32.5(H) 27.0 - 31.0 pg [facility] MCHC 34.0 32.0 - 36.0 g/dL [facility] RDW 14.2 11.5 - 14.5 % [facility] MPV 9.3 8.4 - 12.0 fL [facility] NRBC 0.00 0.00 /100 WBCs [facility] ABSOLUTE NRBC 0.00 0.00 K/uL [facility] DIFF METHOD Auto [facility] NEUTS 64.9 48.0 - 76.0 % [facility] LYMPHS 22.8 18.0 - 41.0 % [facility] MONOS 9.8 4.0 - 11.0 % [facility] EOS 1.4 0.0 - 5.0 % [facility] BASOS 0.6 0.0 - 1.5 % [facility] Granulocytes, immature (%) 0.5 0.0 - 0.9 % [facility] ABSOLUTE NEUTS 4.10 1.92 - 7.60 K/uL [facility] ABSOLUTE LYMPHS 1.44 0.72 - 4.10 K/uL [facility] ABSOLUTE MONOS 0.62 0.16 - 1.10 K/uL [facility] ABSOLUTE EOS 0.09 0.00 - 0.50 K/uL [facility] ABSOLUTE BASOS 0.04 0.00 - 0.15 K/uL [facility] Granulocytes, immature 0.03 0.00 - 0.09 K/uL [facility] Blood 06/08/2025 12:0 6 PM EDT 06/08/2025 12:09 PM EDT Cecille Jimenez PA-C LAB BLOOD BKR ORDERABLES Fin al Result Performing Organization Address City/State/[facility] Co de Phone Number [address] [address] * COLONOSCOPY FOR RESULT ENTRY ONLY (11/17/2024 9:49 AM EDT) Historical Provider HEALTH MAINTENANCE Final Result from Last 3 Months or Most Recently Relevant to Health Maintenance Insurance [facility] MEDICARE REPLACEMENT [facility] MEDICARE REPLACEMENT * Guarantor: Aldo Olivarez Account Type Relation to Patient Date of Phone Billing Address Personal/Family Self 1955 [address] [facility] [place] [id number] [facility] MEDICARE REPLACEMENT [facility] MEDICARE REPLACEMENT Care Teams Adult Probation Officer Relationship Specialty Start Date End Date Murray Pichardo MD [address] [place] [phone] mary PCP - General Internal Medicine 05/29/21 Murray Pichardo MD [address] [place] [phone] [email or web address] Historical LMR Provider 06/29/17 Michael Souza MD [address] [place] [id number] Ophthalmology 09/21/20 Additional Source Comments The information contained in this document represents components of the legal health record. It is not the complete legal health record.[facility]
--- OUTSIDE RECORDS SUMMARY | 2025-08-31 08:02 | XMS_ITS | Encounter Summary ---
Author Organization [facility] Address [address] [place] [phone] Phone Care Team Providers Care Ethanol Maintenance Mechanic Name Role Phone Murray Pichardo MD Unavailable [phone] Michael Souza MD Unavailable [phone] Murray Pichardo MD Primary Care Provider [phone] Encounter Details Date Type Department Care Team (Late st Contact Info) Description 08/12/2025 Orders Only [facility] [address] [facility] [address] Provider, MD Tamiko [address] [place], [place] [id number] Social History Tobacco Use Types Packs/Day Years [...] Description 02/11/2026 1:30 PM EDT Office Visit [facility] [address] [place], [place] [phone] Murray Pichardo MD [address] [place] [address] [email or web address] documented as of this encounter Procedures Procedure Name Priority Date/Time Associated Diagnosis Comments OUTSIDE LAB Routine 08/11/2025 3:44 PM EST documented in this encounter Results * Outside Lab (Non-MGB) (08/11/2025 3:44 PM EST) us Historical Provider LAB BLOOD BKR ORDERABLES Final Result documented in this encounter Visit Diagnoses Not on filedocumented in this encounter Additional Health Concerns Assessment Noted Time PHQ-2 Depression Total Score: 0 03/01/20 25 12:46 PM EDT documented as of this encounter Care Teams Ethanol Maintenance Mechanic Relationship Specialty Start Date End Date Murray Pichardo MD [address] [place] [address] [email or web address] PCP - General Internal Medicine 05/29/21 Murray Pichardo MD [address] [place] [address] [email or web address] Historical LMR Provider 06/29/17 Michael Souza MD [address] [place] [address] Ophthalmology 09/21/20 documented as of this encounter Additional Source Comments The information contained in this document represents components of the legal health record. It is not the complete legal health record.[facility]
--- OUTSIDE RECORDS SUMMARY | 2025-08-31 08:02 | XMS_ITS | Encounter Summary ---
Author Organization [facility] Address [address] [place] [id number] Phone Care Team Providers Care Thermal Intelligence Analyst Name Role Phone Murray Pichardo MD Unavailable [phone] Michael Souza MD Unavailable [phone] Murray Pichardo MD Primary Care Provider [phone] Encounter Details Date Type Department Care Team (Late st Contact Info) Description 08/02/2025 Orders Only [facility] [address] [place] [address] Provider, MD Tamiko [address] [place], [place] [id number] Social History Tobacco Use Types Packs/Day Years [...] Description 02/11/2026 1:30 PM EDT Office Visit [facility] [address] [place], [place] [id number] Murray Pichardo MD [address] [place] [address] mary documented as of this encounter Procedures [...] documented as of this encounter Care Teams Thermal Intelligence Analyst Relationship Specialty Start Date End Date Murray Pichardo MD [address] [place] [address] mary PCP - General Internal Medicine 05/29/21 Murray Pichardo MD [address] [place] [address] mary Historical LMR Provider 06/29/17 Michael Souza MD [address] [place] [address] Ophthalmology 09/21/20 documented as of this encounter Additional Source Comments The information contained in this document represents components of the legal health record. It is not the complete legal health record.[facility]
[2025-08-31 10:15] LABS: Appearance Urine Clear; Glucose Urine UA Negative (Negative); PH 5.5 (5.0-9.0); Specific Gravity - Urine <= 1.005 (1.005-1.025); UMIC TRIGGER UA YES
[2025-08-31 10:41] LABS: MANUAL DIFF FLAG NO
[2025-08-31 10:49] LABS: Hematocrit 41.0 % (42.0-52.0); Hemoglobin 13.5 g/dl (14.0-18.0); Imm Gran Abs Auto 0.02 X10*3/uL (0.00-0.03); Imm Gran Pct Auto 0.4 % (0.0-0.4); Lymphocytes Absolute Auto 1.4 X10*3/uL (1.2-4.9); Mean Corpuscular HGB Conc 32.9 g/dl (31.0-36.0); Mean Corpuscular Hemoglobin 32.0 pg (27.0-33.0); Mean Corpuscular Volume 97.2 fL (80.0-98.0); NRBC Abs Auto 0.000 X10*3/uL (0.0-0.012); NRBC Pct Auto 0.0 /100WBC (0.0-0.2); Platelet Count 197 X10*3/uL (160-400); Red Blood Count 4.22 X10*6/uL (4.60-5.80); White Blood Count 4.7 X10*3/uL (4.8-10.8)
[2025-08-31 11:09] LABS: Anion Gap 13 (12-20); Blood Urea Nitrogen 10 mg/dL (9-16); Calcium 9.1 mg/dL (8.4-10.2); Carbon Dioxide 24 mmol/L (22-29); Chloride 98 mmol/L (96-108); Estimated Glomerular Filt Rate > 60; Iron 146 mcg/dL (45-160); Magnesium 1.7 mg/dL (1.6-2.6); Percent Iron Saturation 66 % (15-50); Potassium 4.3 mmol/L (3.3-5.1); Sodium 131 mmol/L (135-145); Total Iron Binding Capacity 222 mcg/dL (228-428); Unsaturated Iron Binding 76 ug/dL
[2025-08-31 11:25] LABS: Microalbum/Creatinine Ratio Ur 62.0 ug/mg cr (<30); Total Protein Urine Random < 7 mg/dL (<12)
[2025-08-31 11:27] LABS: Uric Acid 7.2 mg/dL (3.4-7.0)
[2025-08-31 11:30] LABS: Parathyroid Hormone Intact 168.6 pg/mL (8.7-77.1)
[2025-08-31 11:33] LABS: Ferritin 366 ng/mL (20-250)
[2025-09-01 06:58] LABS: Tacrolimus Prograf 5.3 mcg/L
== END 2025-08-31 08:00 | disposition home or self-care (01) ==
LOC: HO.HMGCLDS 07:59
PROVIDERS: PCP Internal Medicine; Visit Provider Internal Medicine
DX: Z13.1 Encounter for screening for diabetes mellitus (principal); Z51.81 Encounter for therapeutic drug level monitoring; Z13.0 Encounter for screening for diseases of the blood and blood-forming organs and certain disorders involving the immune mechanism; Z94.0 Kidney transplant status
CPT/HCPCS: 36415; 80051; 80197; 81001; 82043; 82306; 82310; 82565; 82570; 82728; 83036; 83540; 83735; 83970; 84100; 84156; 84520; 84550; 85025